=== PATIENT | male | born 1945 | race Caucasian/White ===

== ENCOUNTER 2019-03-17 18:05 | Inpatient (IN) ==
[2019-03-17 19:50] LABS: Basophils % 0.7 %; Eosinophils # 0.1 K/mcL (0.0-0.6); Eosinophils % 2.1 %; Hematocrit 35.6 % (37.5-50.1); Immature Granulocytes % 1.3 % (0-4); Lymphocytes # 1.1 K/mcL (0.6-4.6); Lymphocytes % 18.5 %; Mean Corpuscular HGB Conc 33.7 g/dL (31.6-35.5); Mean Corpuscular Hemoglobin 33.5 pg (28.0-33.3); Mean Corpuscular Volume 99.4 fL (83.0-100.0); Mean Platelet Volume 9.2 fL (9.4-12.4); Monocytes # 0.5 K/mcL (0.0-1.3); Neutrophils # 4.2 K/mcL (1.6-8.9); Platelet Count 113 K/mcL (140-400); Red Blood Count 3.58 M/mcL (4.19-5.50); Red Cell Distribution Width 15.3 % (11.5-14.5); Segmented Neutrophils % 69.4 %
[2019-03-17 20:05] LABS: BUN/Creatinine Ratio 27 (6-26); Blood Urea Nitrogen 36 mg/dL (8-23); Carbon Dioxide 27 mEq/L (23-29); Chloride 100 mEq/L (98-107); Glucose 190 mg/dL (70-105); Osmolality,Calculated 301 (280-300); Potassium 4.6 mEq/L (3.5-5.1); Sodium 139 mEq/L (136-145); eGFR For Non-African Americans 54 (> 60)
[2019-03-17] MEDS ORDERED: *HR* FentaNYL (PF) 100 MCG/2 ML VIAL IVP ONE (20:07)
[2019-03-17 20:11] LABS: INR 1.3; Prothrombin Time 14.6 Seconds (9.4-12.1)
[2019-03-17 20:14] LABS: Activated Partial Thrombo Time 39.9 Seconds (26.0-36.0)
[2019-03-17] MEDS ORDERED: 0.9 % Sodium Chloride 1,000 ML IVC ONE (20:19)
--- NOTE | 2019-03-17 20:22 | Emergency Department Note ---
Disposition Clinical Impression: Peripheral vascular disease Disposition: Admitted As Inpatient Condition: Fair [facility] Care Provider[facility] - Time of Disposition: 20:00 Extremity Problem HPI - General Chief complaint: ED Extremity Problem,Nontraumatic Stated complaint: no pulse in left foot Time Seen by Provider: 03/17/19 18:21 Source: patient, EMS Limitations: no limitations Nursing Notes Reviewed: Yes Vital Signs Reviewed: Yes - History of Present Illness HPI Narrative: Patient presents emergency Department with chief complaint of not knowing actually why he is here. He states he was at his doctor's office at the [facility] and then they sent him over here because "his foot was not acting right" he states that he thinks that he was told that he had bad blood flow to his feet. Patient states that he is not having any acute pain numbness weakness. He does have a h istory of neuropathy, secondary to peripheral vascular disease and diabetes. The patient states that from his standpoint nothing is new. He denies any headache neck pain chest pain shortness of breath fever chills cough or sputum production. He does see a field technical specialist as well and recently had his feet wrapped. Reviewing his records from triage, it states that he was at the [facility], they contact ed vascular surgery because of the patient's left foot was reportedly pulseless and cold, and vascular surgery said to send him to this hospital to be admitted by the hospitalist so that he could perform angiogram tomorrow. Patient denies any other acute concerns at this time. Pain Scale: 0 - Related Data Allergies Allergy/AdvReac Type Severity Reaction Status Date / Time No Known Allergies Allergy Verified 03/17/19 18:17 All systems ED: reviewed and negative except as stated. Review of Systems: As Per HPI Past Medical History - Past Medical History Medical history: Reports: CHF, diabetes Psychiatric history: Reports: no psych history - Social History Smoking Status: Former smoker Smokeless Tobacco Status: No Alcohol use: Reports: none Drug use: Reports: none Physical Exam - General Limitations: no limitations General appearance: alert, in no apparent distress - Head Head exam: atraumatic, normocephalic - Eye Eye exam: Present: normal appearance, PERRL - ENT ENT exam: normal exam, normal oropharynx - Neck Neck exam: Present: normal inspection, full ROM - Chest Chest inspection: Present: normal inspection, symmetric chest wall rise - Respiratory Respiratory exam: Present: normal lung sounds bilaterally - Cardiovascular Cardiovascular exam: Present: regular rate, normal rhythm, systolic murmur (2/6 systolic murmur no rubs or gallops) - Abdominal Exam Abdominal exam: Present: soft, Non-Tender, other (Morbidly obese, no obvious palpable or pulsatile mass) - Extremities Exam Extremities exam: Present: other (Bilateral lower extremities, reveals some chronic likely skin thickening and shiny appearance to the toes, with a slight pinkish hue to them, both feet are normally warm to the touch they are not hot, they are not cold, he has palpable bilateral pedal and dorsalis pedis pulses. He does have chronic what appears to be peripheral vascular disease changes, he has a area of dry gangrene on the left medial dorsal portion of the foot measuring approximately the size of a quarter, and one on the right foot on the dorsal aspect measuring the size of a dime but there is no skin breakdown, there is no surrounding erythema or warmth or purulence. He is able to wiggle his feet bilaterally sensation is completely intact. He has palpable bilateral popliteal pulses as well. This was confirmed by myself by the resident physician by 3 nursing staff, and by bedside Doppler. There is no evidence of unilateral swelling calf tenderness or Homans sign, there is trace lower extremity edema ) - Expanded Lower Extremity Exam Neurovascular/Tendon exam: Present: normal capillary refill. Absent: pulse deficit, motor deficit, sensory deficit Gait: observed and normal, other (Without asking permission the patient did get up and walk himself to the bathroom, eyewitnesses gait is slow but it is normal, immediately upon arrival back at the bedside I rechecked his pulses in his lower extremities and the are still palpable and he has no new pain.) - Back Exam Back exam: Present: normal inspection - Neurological Exam Neurological exam: Present: alert, oriented X3, CN II-XII intact, reflexes normal. Absent: motor sensory deficit - Psychiatric Psychiatric exam: Present: normal affect, normal mood - Skin Skin exam: Present: warm, dry. Absent: cyanosis, diaphoresis, pallor, mottled Course Vital Signs Temperature 98.9 F 03/17/19 18:12 Pulse Rate 81 03/17/19 18:12 Respiratory Rate 18 03/17/19 18:12 Blood Pressure 139/85 03/17/19 18:12 O2 Sat by Pulse Oximetry 96 03/17/19 18:12 Temperature 98.9 F 03/17/19 18:12 Pulse Rate 80 03/17/19 19:03 Respiratory Rate 20 03/17/19 19:03 Blood Pressure 127/52 03/17/19 19:03 O2 Sat by Pulse Oximetry 100 03/17/19 19:03 Oxygen Delivery Oxygen Delivery Room Air Extremity Problem, Nontraumati - [facility] Narrative Medical decision making narrative: Patient had an IV placed, he has issues with chronic pain related to neuropathy for which she requested pain medication for which she was given IV fentanyl. Basic laboratory studies were ordered. I reached out to Dr. Mott, who reportedly accepted this patient to this hospital, to be seen in the ER and admitted to the hospitalist, I was finally able to get a hold of him, I explained that this patient clearly has palpable pulses, he has no evidence of pallor he can feel everything he can move everything and has no increased pain from his baseline, with no obvious evidence of acute infection, he states that this is completely different than the examination he is reported by the senior water/wastewater engineer at the NH, he reports that the patient is on apixaban, and would not initiate any further anticoagulation, does not feel that based upon the description of his symptoms at this time that he should receive IV antibiotics. He did ask that I order ABIs for him so that these are available for him for tomorrow and that the hospitalist admit this patient. I contacted the hospitalist, who was agreeable to admit this patient. Basic laboratory studies were unremarkable for significant acute abnormality, and patient was admitted for further evaluation and management. - Lab Data Lab results reviewed: Yes I reviewed the patient's lab results. Result diagrams: 03/17/19 19:24 03/17/19 19:24 Lab Results 03/17/19 03/17/19 03/17/19 Range/Units 19:24 19:24 19:24 WBC 6.1 (4.3-11.1) K/mcL RBC 3.58 L (4.19-5.50) M/mcL Hgb 12.0 L (12.9-16.9) g/dL Hct 35.6 L (37.5-50.1) % MCV 99.4 (83.0-100.0) fL MCH 33.5 H (28.0-33.3) pg MCHC 33.7 (31.6-35.5) g/dL RDW 15.3 H (11.5-14.5) % Plt Count 113 L (140-400) K/mcL MPV 9.2 L (9.4-12.4) fL Immature Gran % 1.3 (0-4) % Seg Neutrophils % 69.4 % Lymphocytes % 18.5 % Monocytes % 8.0 % Eosinophils % 2.1 % Basophils % 0.7 % Neutrophils # 4.2 (1.6-8.9) K/mcL Lymphocytes # 1.1 (0.6-4.6) K/mcL Monocytes # 0.5 (0.0-1.3) K/mcL Eosinophils # 0.1 (0.0-0.6) K/mcL Basophils # 0.0 (0.0-0.2) K/mcL PT 14.6 H (9.4-12.1) Seconds INR 1.3 APTT 39.9 H (26.0-36.0) Seconds Sodium 139 (136-145) mEq/L Potassium 4.6 (3.5-5.1) mEq/L Chloride 100 (98-107) mEq/L Carbon Dioxide 27 (23-29) mEq/L BUN 36 H (8-23) mg/dL Creatinine 1.31 H (0.70-1.30) mg/dL Est GFR ( Amer) > 60 (> 60) Est GFR (Non-Af Amer) 54 L (> 60) BUN/Creatinine Ratio 27 H (6-26) Glucose 190 H (70-105) mg/dL Calculated Osmolality 301 H (280-300) Calcium 9.0 (8.6-10.3) mg/dL
[2019-03-17] MEDS ORDERED: Naloxone 0.4 MG/ML INJ IVP PRN (21:11)
--- NOTE | 2019-03-17 21:16 | Internal Med History&Physical ---
Date of Encounter: 03/17/19 Time of Encounter: 21:16 Internal Medicine - H&P: HPI Chief complaint: Absent lower extremity pulses History of present illness: Mr. Canales is a 74 year old male with a past medical history of peripheral vascular disease, hypertension, CHF and diabetes [facility] due to concern absent pulses in the left lower extremity. Patient denies having any acute pain numbness weakness. He does have a history of neuropathy, secondary to peripheral vascular disease and diabetes and frequent falls. She is currently on Eliquis. Per records, [place] contacted vascular surgery because of concern vascular insufficiency involving the left lower due to reported findings of the limb being cold and pulseless. Dr. Mott with vascular surgery reportedly accepted this patient to this hospital, to be seen in the ER and admitted to the hospitalist. During ED assessment patient was found to have a palpable pulse in the left lower extremity which was discussed with Dr. Mott. He requested that ABIs be obtained and will evaluate the patient tomorrow. Patient currently asymptomatic. Denies any fever, chills, shortness of breath, cough, chest pain, abdominal pain, diarrhea. Past Med Surg Social Fam HX - Past Medical History Medical history: CHF, diabetes Psychiatric history: no psych history - Social History Smoking Status: Former smoker Smokeless Tobacco Status: No Alcohol use: none Drug use: none Internal Medicine - H&P: Meds Apixaban [Eliquis] 5 mg PO BID 03/17/19 [History] Aspirin [Adult Aspirin] 81 mg PO DAILY 03/17/19 [History] Atorvastatin [Lipitor] 40 mg PO 1700 03/17/19 [History] BuPROPion SR (12 HR) [Wellbutrin SR] 150 mg PO DAILY 03/17/19 [History] Carvedilol [Coreg] 6.25 mg PO BIDWM 03/17/19 [History] Cholecalciferol (D-3) [Vitamin D] 5,000 unit PO DAILY 03/17/19 [History] Collagenase Oint [Santyl] 1 appl TP DAILY 03/17/19 [History] Divalproex (24 HR) [Depakote ER (24 HR)] 500 mg PO HS 03/17/19 [History] Empagliflozin [Jardiance] 25 mg PO DAILY 03/17/19 [History] Furosemide [Lasix] 20 mg PO DAILY 03/17/19 [History] Gabapentin [Neurontin] 1,200 mg PO BID 03/17/19 [History] Insulin ASPART [Novolog Flexpen] 2 - 10 unit SQ TIDWM 03/17/19 [History] Insulin Glargine [Lantus] 14 unit SQ Q12H 03/17/19 [History] Lisinopril [Zestril] 20 mg PO DAILY 03/17/19 [History] Meclizine HCl [Verticalm] 25 mg PO TID PRN 03/17/19 [History] Melatonin [Melatin] 6 mg PO HS 03/17/19 [History] Metformin HCl [Glucophage] 1,000 mg PO BID 03/17/19 [History] Sertraline [Zoloft] 150 mg PO DAILY 03/17/19 [History] amLODIPine [Norvasc] 5 mg PO DAILY 03/17/19 [History] Allergy/AdvReac Type Severity Reaction Status Date / Time No Known Allergies Allergy Verified 03/17/19 18:17 All Systems PM: A 10-system review of systems was performed and is negative for pertinent findings except as documented above in the HPI. - Constitutional Constitutional: no chills, no fever(s), no night sweats - EENT Eyes: no change in vision, no discharge, no pain, no photophobia Ears: no ear discharge, no ear pain, no tinnitus Nose, mouth and throat: no dysphagia, no nasal discharge, no neck pain, no sore throat - Cardiovascular Cardiovascular ROS IM: no chest pain, no diaphoresis, no dyspnea, no lightheadedness, no palpitations, no syncope - Respiratory Respiratory: no cough, no dyspnea, no wheezing, no excessive phlegm production - Gastrointestinal Gastrointestinal: no abdominal pain, no diarrhea, no hematemesis, no hematochezia, no melena, no nausea, no vomiting - Musculoskeletal Musculoskeletal ROS IM: no numbness, no tingling - Integumentary Integumentary IM: no rash, no unusual bruising - Neurological Neurological ROS: no confusion, no convulsions, no focal weakness, no numbness, no tingling, no tremor(s) - Hematologic/Lymphatic Hematologic/Lymphatic: no easy bruising - Constitutional Vitals: Temp Pulse Resp BP Pulse Ox 98.9 F 82 18 156/63 98 05/09/19 18:12 03/17/19 20:19 03/17/19 20:19 03/17/19 20:19 03/17/19 20:19 Exam: General: Alert and oriented 3 lying in bed in no acute distress Skin: Quarter-sized black eschar on the medial aspect of the left foot at the level of the first metatarsal joint HEENT:EOM, pupils equal, round and reactive. Cardiovascular:Normal S1 & S2, no rubs, murmurs or gallops. No JVD. Pulse regular. Lungs:Normal breath sounds, no wheezes or crackles. Abdomen: Left lower extremity warm to palpation with palpable DP pulse. Right lower extremity cooler in comparison. Unable to palpate DP or PT pulses. Obtained via Doppler. Extremities: Bilateral lower extremities Neurological:Normal cognition and motor skills. Pulses:Carotid and radial pulses normal +2. Rest of the physical exam is non contributory Internal Med - H&P Results - Labs CBC & Chem 7: 03/18/19 04:58 03/18/19 04:58 Labs: Short CBC 03/17/19 Range/Units 19:24 WBC 6.1 (4.3-11.1) K/mcL Hgb 12.0 L (12.9-16.9) g/dL Hct 35.6 L (37.5-50.1) % Plt Count 113 L (140-400) K/mcL Neutrophils # 4.2 (1.6-8.9) K/mcL BMP 03/17/19 19:24 Sodium 139 Potassium 4.6 Chloride 100 Carbon Dioxide 27 BUN 36 H Creatinine 1.31 H Glucose 190 H Calcium 9.0 - Assessment and Plan (1) Peripheral vascular disease Current Visit: Yes Status: Chronic Assessment and plan: Patient is a history of PVD [facility] of absent pulses in the left lower extremity. I was able to palpate the DP pulse on the left lower extremity. Right lower extremity in comparison is cooler to touch and I am unable to palpate the PT or DP pulse. Pulse obtained via Doppler. Patient at this time denies any pain area does report paresthesias but states that this has been ongoing in the setting of his diabetic neuropathy and is unchanged. Labs otherwise unremarkable. No evidence of an infectious process. Patient currently on Eliquis -Further vascular studies with OLEKSANDR and possible CT angiogram to lower extremities. -Vascular consult (2) Diabetes Current Visit: Yes Status: Chronic Assessment and plan: Sliding scale insulin. Blood glucose checks. Qualifiers: Diabetes mellitus type: type 2 Diabetes mellitus buttermaker helper insulin use: unspecified shelter insulin use status Diabetes mellitus complication status: with unspecified complications Qualified Code(s): E11.8 - Type 2 diabetes mellitus with unspecified complications (3) Congestive heart failure Current Visit: Yes Status: Chronic Assessment and plan: History of congestive heart failure. Patient received 1 L fluid bolus in the ED. Monitor I's and O's. Daily weights. Resume medical management with home medications. Qualifiers: Heart failure type: unspecified Heart failure chronicity: chronic Qualified Code(s): I50.9 - Heart failure, unspecified (4) Hypertension Current Visit: Yes Status: Acute Qualifiers: Hypertension type: unspecified Qualified Code(s): I10 - Essential (primary) hypertension (5) DVT prophylaxis Current Visit: Yes Status: Acute Assessment and plan: Patient currently on Eliquis - Time Spent With Patient Total time spent is greater than 50% in coordination of care (as documented) at patient's floor/unit and/or counseling patient:
[2019-03-17] MEDS ORDERED: Isovue-370 500 ML BOTTLE IVP ONE ×2 (22:40→22:46)
[2019-03-18] MEDS ORDERED: *HR* LORazepam 2 MG/ML VIAL IVP PRN ×3 (04:37)
[2019-03-18] MEDS ORDERED: D5% in Water 1,000 ML IVC PRN (04:41)
[2019-03-18] MEDS ORDERED: *HR* Dextrose 50 % in Water (Syg) 50 ML SYRINGE IVP PRN (04:41)
[2019-03-18] MEDS ORDERED: Dextrose Gel 15 GM/37.5 ML TUBE PO PRN ×2 (04:41)
--- NOTE | 2019-03-18 04:52 | Event Note ---
Date of Encounter: 03/18/19 Time of Encounter: 04:45 Informed by nurse that patient had removed his telemetry leads twice, took his IV out and bandage off his arm. Patient stated that he thought he was done with his care. Patient appeared to be confused. Foul-smelling urine noted cloudy in appearance. Nurse inquired about any alcohol history. Patient states he drinks nearly daily and asked the nurse if he could have a beer. When I arrived patient he was lying in bed in no acute distress. Alert oriented 2. Did not know the year. Denied any discomfort. Stated that he drank once a month. He did endorse dysuria. Vitals stable. Physical exam unchanged. We will send urine for culture. We will start patient on CIWA protocol. We will obtain ammonia level.
[2019-03-18 04:59] LABS: Bilirubin,Urine Negative (Negative); Blood,Urine Trace (Negative); Clarity,Urine Cloudy (Clear); Color,Urine Yellow (Yellow); Glucose,Urine (UA) >=1000 mg/dL (Normal); Ketones,Urine Negative (Negative); Leukocyte Esterase,Urine Moderate (Negative); Nitrite,Urine Negative (Negative); Protein,Urine 100 mg/dL (Neg-Trace); Specific Gravity,Urine 1.018 (1.010-1.025); Urobilinogen,Urine Normal (Normal)
[2019-03-18 05:00] LABS: Bacteria,Urine Few per hpf (None-Few); Hyaline Casts,Urine None Seen per lpf (None-Few); Squamous Epithelial Cell,Urine None Seen per lpf (None-Few); WBC,Urine TNTC per hpf (0-3)
[2019-03-18 05:11] LABS: Immature Granulocytes % 1.4 % (0-4)
[2019-03-18 05:13] LABS: Basophils % 0.8 %; Eosinophils # 0.1 K/mcL (0.0-0.6); Eosinophils % 2.2 %; Hemoglobin 11.8 g/dL (12.9-16.9); Immature Platelets 0.8 % (1.1-6.1); Lymphocytes % 19.9 %; Mean Corpuscular HGB Conc 33.7 g/dL (31.6-35.5); Mean Corpuscular Hemoglobin 33.4 pg (28.0-33.3); Mean Corpuscular Volume 99.2 fL (83.0-100.0); Mean Platelet Volume 8.7 fL (9.4-12.4); Monocytes # 0.5 K/mcL (0.0-1.3); Neutrophils # 3.3 K/mcL (1.6-8.9); Platelet Count 109 K/mcL (140-400); Red Blood Count 3.53 M/mcL (4.19-5.50); Red Cell Distribution Width 15.2 % (11.5-14.5); Segmented Neutrophils % 66.7 %
[2019-03-18 05:22] LABS: INR 1.2; Prothrombin Time 13.9 Seconds (9.4-12.1)
[2019-03-18 05:24] LABS: Activated Partial Thrombo Time 40.5 Seconds (26.0-36.0)
[2019-03-18 05:30] LABS: Alanine Aminotransferase 8 Units/L (7-52); Albumin 3.6 g/dL (3.5-5.7); Albumin/Globulin Ratio 1.3 (1.1-2.2); Alkaline Phosphatase 71 Units/L (34-104); Aspartate Amino Transferase 12 Units/L (13-39); BUN/Creatinine Ratio 31 (6-26); Bilirubin,Total 0.4 mg/dL (0.3-1.0); Blood Urea Nitrogen 30 mg/dL (8-23); Calcium 8.9 mg/dL (8.6-10.3); Carbon Dioxide 28 mEq/L (23-29); Chloride 104 mEq/L (98-107); Globulin 2.7 g/dL (2.4-3.5); Glucose 106 mg/dL (70-105); Osmolality,Calculated 293 (280-300); Potassium 3.9 mEq/L (3.5-5.1); Sodium 138 mEq/L (136-145); Total Protein 6.3 g/dL (6.4-8.9); eGFR For Non-African Americans > 60 (> 60)
[2019-03-18] MEDS: Insulin LISPRO 300 UNITS/3 ML VIAL SQ SCH ×3 (06:03→17:54)
[2019-03-18] MEDS ORDERED: Insulin LISPRO 300 UNITS/3 ML VIAL SQ SCH (07:30)
--- NOTE | 2019-03-18 08:20 | Vascular/Endovasc Consult Note ---
Date of Encounter: 03/18/19 Time of Encounter: 08:18 Assessment and Plan (1) Peripheral vascular disease Current Visit: Yes Status: Chronic Patient appears to have chronic lower extremity vascular disease most likely due to his diabetes. The disease were reversed greater on the right side than on the left. I was informed that the left lower extremity was more ischemic but on my physical exam as noted by other physicians there are palpable pulses at the ankle. In addition the ankle-brachial index is normal to supernormal on the left and diminished on the right. There were obvious pulse deficits on the right lower extremity suggesting superficial femoral artery occlusion. Therefore I recommend that we proceed with angiography with the plan of endovascular intervention for the right lower extremity. The patient will need further wound care as an outpatient either through podiatry or wound care clinic for the foot and toe lesions. Patient will need his metformin held for 48 hours. (2) Diabetes Current Visit: Yes Status: Chronic Patient has chronic diabetes with diabetic neuropathy and it appears diabetic ulcerations of the feet and toes. Patient will need further follow-up with wound care and/or podiatry for his foot lesions. Qualifiers: Diabetes mellitus type: type 2 Diabetes mellitus nursing home insulin use: unspecified nursing home insulin use status Diabetes mellitus complication status: with unspecified complications Qualified Code(s): E11.8 - Type 2 diabetes mellitus with unspecified complications (3) Congestive heart failure Current Visit: Yes Status: Chronic By history the patient has congestive heart failure. There is also a telephone conversation with the outside physician who stated that the patient had paroxysmal atrial fibrillation and was on apixiban for that reason. Qualifiers: Heart failure type: unspecified Heart failure chronicity: chronic Qualified Code(s): I50.9 - Heart failure, unspecified - History of Present Illness Consult date: 03/18/19 Consult reason: Toe ulcerations Chief complaint: Toe ulcerations History of present illness: Mr. Canales is a 74 year old male Lives in [place] that was at the [facility] yesterday because of complaints of ulcera tions on his feet. The patient has a long history of diabetes. He also has known diabetic neuropathy with numbness of the feet and toes. It is unclear what the patient's ambulatory intolerances as he does not do a great deal of walking. Vascular surgery was consulted because there was concern raised about severe ischemia to the left lower extremity. He was reported to me that the patient had no pulses and that the left foot was cold. They had no recent noninvasive testings and so they requested that the patient be transferred for further evaluation. On my interview with the patient this morning his primary complaints are those of the ulcerations of the feet and toes. He also complains of chronic numbness. The patient does have diabetic shoes which he states that he wears a regular basis. He has not had any recent vascular testing. The last testing he had was in 2016. Noninvasive testing was performed last night in the emergency room. This revealed an ankle-brachial index of 0.73 on the right and 1.46 on the left. The waveforms were abnormal in the right lower extremity. Waveforms were nearly normal in the left lower extremity. Past Med Surg Social Fam HX - Past Medical History Medical history: CHF, COPD, diabetes Psychiatric history: no psych history - Social History Smoking Status: Former smoker Smokeless Tobacco Status: No Alcohol use: occasionally Drug use: none Medications and Allergies Apixaban [Eliquis] 5 mg PO BID 03/17/19 [History] Aspirin [Adult Aspirin] 81 mg PO DAILY 03/17/19 [History] Atorvastatin [Lipitor] 40 mg PO 1700 03/17/19 [History] BuPROPion SR (12 HR) [Wellbutrin SR] 150 mg PO DAILY 03/17/19 [History] Carvedilol [Coreg] 6.25 mg PO BIDWM 03/17/19 [History] Cholecalciferol (D-3) [Vitamin D] 5,000 unit PO DAILY 03/17/19 [History] Collagenase Oint [Santyl] 1 appl TP DAILY 03/17/19 [History] Divalproex (24 HR) [Depakote ER (24 HR)] 500 mg PO HS 03/17/19 [History] Empagliflozin [Jardiance] 25 mg PO DAILY 03/17/19 [History] Furosemide [Lasix] 20 mg PO DAILY 03/17/19 [History] Gabapentin [Neurontin] 1,200 mg PO BID 03/17/19 [History] Insulin ASPART [Novolog Flexpen] 2 - 10 unit SQ TIDWM 03/17/19 [History] Insulin Glargine [Lantus] 14 unit SQ Q12H 03/17/19 [History] Lisinopril [Zestril] 20 mg PO DAILY 03/17/19 [History] Meclizine HCl [Verticalm] 25 mg PO TID PRN 03/17/19 [History] Melatonin [Melatin] 6 mg PO HS 03/17/19 [History] Metformin HCl [Glucophage] 1,000 mg PO BID 03/17/19 [History] Sertraline [Zoloft] 150 mg PO DAILY 03/17/19 [History] amLODIPine [Norvasc] 5 mg PO DAILY 03/17/19 [History] Allergy/AdvReac Type Severity Reaction Status Date / Time No Known Allergies Allergy Verified 03/17/19 18:17 All Systems Review: The remainder of the systems were reviewed and are negative Exam Vital Signs, Last 4 Hours Temp Pulse Resp BP Pulse Ox 03/18/19 07:02 97.7 F 84 20 145/69 95 General: Present: Conversant, No Apparent Distress HEENT: Present: Atraumatic, Normocephaly, Trachea midline Neck: Present: Left Carotid bruit, Right Carotid bruit. Absent: JVD, Midline deformity, Tracheal deviation Cardiac: Present: Reg Rate and Rhythm, Other (Patient has a 3/6 systolic murmur heard across the precordium but is loudest over the aortic position. This murmur does radiate into the neck bilaterally.) Lungs: Present: Normal Breath Sounds, No Wheeze, Rales, Rhonchi Neuro: Present: Alert and responsive, No focal deficits noted, Cranial nerves grossly intact Abdomen: Present: Soft, Non-tender, Other (Obese). Absent: Masses Vascular: Present: Pulse, absent (The patient does not have palpable popliteal or pedal pulses on the right lower extremity), Pulse, normal (Patient has palpable femoral, popliteal, and pedal pulses on the left.) Skin: Present: Wound/ulcer(s) (Patient has ulcerations of punctate black circular dimensions on the dorsal aspect of the toes on the right side. He has a quarter size necrotic area on the area of the left medial first metatarsal head. There is no streaking. There are no blebs. There is no redness. Patient has decreased turgor of the skin with mild but nonpitting edema bilaterally.) Consult Discharge Plan - Plan [facility]errals: [facility] [Primary Care Provider] -
--- NOTE | 2019-03-18 08:30 | Internal Med Progress Note ---
<Grabiel Quinonez - Last Filed: 03/18/19 08:27> Hospitalist Progress Note - Encounter Date of Encounter: 03/18/19 Time of Encounter: 08:27 - Exam Vitals: Temp Pulse Resp BP Pulse Ox 97.7 F 84 20 145/69 95 03/18/19 07:02 03/18/19 07:02 03/18/19 07:02 03/18/19 07:02 03/18/19 07:02 - Assessment and Plan (1) Peripheral vascular disease Current Visit: Yes Status: Chronic Assessment and Plan: - [facility] presented [facility] for concerns of absent pulses in the LLE - Patient is a known history of peripheral vascular disease - On presentation, patients pulse was palpable the left lower extremity - OLEKSANDR performed in ED: 0.73 on the right, 1.46 on the left; abnormal waveforms in the right lower extremity - Patient takes aspirin and statin Plan: - Patient is NPO except PO medications - CTA of the aorta is ordered and is currently pending - Wound care and vascular surgery have both been consulted (2) Alcohol use Current Visit: Yes Status: Acute Assessment and Plan: - Per that note on 03/18: Patient appeared confused and was removing telemetry leads and his IVs - When asked, patient admits to drinking daily, and asked the nurse if he could have a beer - He was assessed, he appeared to be confused and was alert and oriented 2 - CIWA protocol was started (3) UTI (urinary tract infection) Current Visit: Yes Status: Acute Assessment and Plan: - Urinalysis demonstrated moderately elevated leukocyte esterase and TNTC white blood cells - Per that note on 03/18: Patient had foul-smelling urine noted with a cloudy appearance - Urine culture has been ordered and is currently pending - Empiric Rocephin (4) Congestive heart failure Current Visit: Yes Status: Chronic Assessment and Plan: - Patient has a known history of congestive heart failure - No echocardiogram is on file - Monitor intake and output - Daily weights - Continue home medications (5) Diabetes Current Visit: Yes Status: Chronic Assessment and Plan: - Sliding scale insulin - Blood glucose checks (6) Hypertension Current Visit: Yes Status: Acute Assessment and Plan: - Currently well-controlled on amlodipine, carvedilol, lisinopril (7) DVT prophylaxis Current Visit: Yes Status: Acute Assessment and Plan: - Eliquis - Time Spent with Patient Total time spent is greater than 50% in coordination of care (as documented) at patient's floor/unit and/or counseling patient: Internal Medicine: Result - Labs CBC & Chem 7: 03/18/19 04:58 03/18/19 04:58 Labs: Short CBC 03/17/19 03/18/19 Range/Units 19:24 04:58 WBC 6.1 5.0 (4.3-11.1) K/mcL Hgb 12.0 L 11.8 L (12.9-16.9) g/dL Hct 35.6 L 35.0 L (37.5-50.1) % Plt Count 113 L 109 L (140-400) K/mcL Neutrophils # 4.2 3.3 (1.6-8.9) K/mcL BMP 03/17/19 03/18/19 19:24 04:58 Sodium 139 138 Potassium 4.6 3.9 Chloride 100 104 Carbon Dioxide 27 28 BUN 36 H 30 H Creatinine 1.31 H 0.98 Glucose 190 H 106 H Calcium 9.0 8.9 Liver Function 03/18/19 Range/Units 04:58 Total Bilirubin 0.4 (0.3-1.0) mg/dL AST 12 L (13-39) Units/L ALT 8 (7-52) Units/L Alkaline Phosphatase 71 (34-104) Units/L Albumin 3.6 (3.5-5.7) g/dL Urine 03/18/19 Range/Units 03:00 Urine Color Yellow (Yellow) Urine Clarity Cloudy A (Clear) Urine pH 6.0 (5.0-8.0) pH Units Ur Specific [place] 1.018 (1.010-1.025) Urine Protein 100 H (Neg-Trace) mg/dL Urine Glucose (UA) >=1000 H (Normal) mg/dL - ABG Interpretation ABG results: PT/INR, D-dimer PT 13.9 Seconds (9.4-12.1) H 03/18/19 04:58 Consult Discharge Plan - Plan Referrals: [facility] [Primary Care Provider] - <Suresh Mo - Last Filed: 03/18/19 18:00> Hospitalist Progress Note - Encounter Date of Encounter: 03/18/19 - Exam Vitals: Temp Pulse Resp BP Pulse Ox 97.7 F 84 20 145/69 95 03/18/19 07:02 03/18/19 07:02 03/18/19 07:02 03/18/19 07:02 03/18/19 07:02 Exam: General: conversant, no acute distress Head: atraumatic, normocephalic Eye: PERRL, EOMI, conjuntiva pink, sclera anicteric Neck: Supple, trachea midline; No lymphadenopathy Respiratory: CTAB. No accessory muscle use, wheezes, rales, or rhonchi Cardiovascular: RRR, +S1, +S2; no murmurs, rubs, gallops Abdomen: Soft, nontender Extremities: Weak pulses in b/l Les, L>R; black discolorations on both feet; may represent dry gangrene Psychiatric: Normal affect, normal mood Skin: Dry, intact - Assessment and Plan (1) Peripheral vascular disease Current Visit: Yes Status: Chronic (2) Diabetes Current Visit: Yes Status: Chronic (3) Congestive heart failure Current Visit: Yes Status: Chronic (4) DVT prophylaxis Current Visit: Yes Status: Acute (5) Hypertension Current Visit: Yes Status: Acute - Time Spent with Patient Total time spent is greater than 50% in coordination of care (as documented) at patient's floor/unit and/or counseling patient: Internal Medicine: Result - Labs CBC & Chem 7: 03/18/19 04:58 03/18/19 04:58 Labs: Short CBC 03/17/19 03/18/19 Range/Units 19:24 04:58 WBC 6.1 5.0 (4.3-11.1) K/mcL Hgb 12.0 L 11.8 L (12.9-16.9) g/dL Hct 35.6 L 35.0 L (37.5-50.1) % Plt Count 113 L 109 L (140-400) K/mcL Neutrophils # 4.2 3.3 (1.6-8.9) K/mcL BMP 03/17/19 03/18/19 19:24 04:58 Sodium 139 138 Potassium 4.6 3.9 Chloride 100 104 Carbon Dioxide 27 28 BUN 36 H 30 H Creatinine 1.31 H 0.98 Glucose 190 H 106 H Calcium 9.0 8.9 Liver Function 03/18/19 Range/Units 04:58 Total Bilirubin 0.4 (0.3-1.0) mg/dL AST 12 L (13-39) Units/L ALT 8 (7-52) Units/L Alkaline Phosphatase 71 (34-104) Units/L Albumin 3.6 (3.5-5.7) g/dL Urine 03/18/19 Range/Units 03:00 Urine Color Yellow (Yellow) Urine Clarity Cloudy A (Clear) Urine pH 6.0 (5.0-8.0) pH Units Ur Specific [place] 1.018 (1.010-1.025) Urine Protein 100 H (Neg-Trace) mg/dL Urine Glucose (UA) >=1000 H (Normal) mg/dL - ABG Interpretation ABG results: PT/INR, D-dimer PT 13.9 Seconds (9.4-12.1) H 03/18/19 04:58 - Attending Attestation I examined this patient and my medical decision-making was reviewed with the Resident Physician. I agree with the documented findings, disposition and treatment plan as described except to the extent set forth below. <Grabiel Quinonez - Last Filed: 03/18/19 08:27> (4) Congestive heart failure Qualifiers: Heart failure type: unspecified Heart failure chronicity: chronic Qualified Code(s): I50.9 - Heart failure, unspecified (5) Diabetes Qualifiers: Diabetes mellitus type: type 2 Diabetes mellitus boiling house oiler insulin use: unspecified boiling house oiler insulin use status Diabetes mellitus complication status: with unspecified complications Qualified Code(s): E11.8 - Type 2 diabetes mellitus with unspecified complications <Suresh Mo - Last Filed: 03/18/19 18:00> (2) Diabetes Qualifiers: Diabetes mellitus type: type 2 Diabetes mellitus fpc insulin use: unspecified boiling house oiler insulin use status Diabetes mellitus complication status: with unspecified complications Qualified Code(s): E11.8 - Type 2 diabetes mellitus with unspecified complications (3) Congestive heart failure Qualifiers: Heart failure type: unspecified Heart failure chronicity: chronic Qualified Code(s): I50.9 - Heart failure, unspecified
[2019-03-18] MEDS: Aspirin Enteric Coated 81 MG Tablet PO SCH (09:00)
[2019-03-18] MEDS: BuPROPion SR (12 HR) 150 MG TABLET PO SCH (09:00)
[2019-03-18] MEDS: Lisinopril 20 MG TABLET PO SCH (09:00)
[2019-03-18] MEDS: Thiamine (B-1) 100 MG TABLET PO SCH (09:00)
[2019-03-18] MEDS: amLODIPine 5 MG TABLET PO SCH (09:00)
[2019-03-18] MEDS: Cholecalciferol (D-3) 1,000 UNIT TABLET PO SCH (09:00)
[2019-03-18] MEDS: Gabapentin 400 MG CAPSULE PO SCH ×2 (09:01→20:54)
[2019-03-18] MEDS ORDERED: Heparin 1,000 UNITS/500 mL 500 ML ONE (09:38)
[2019-03-18] MEDS ORDERED: *HR* Heparin 10,000 UNIT/10 ML VIAL ONE (09:38)
[2019-03-18] MEDS ORDERED: Isovue-300 200 mL Infus..BTL ONE (09:38)
[2019-03-18] MEDS ORDERED: 0.9 % Sodium Chloride 1,000 ML ONE (09:38)
[2019-03-18] MEDS ORDERED: *HR* FentaNYL (PF) 100 MCG/2 ML VIAL ONE (09:48)
[2019-03-18] MEDS ORDERED: *HR* Midazolam HCl 2 MG/2 ML VIAL ONE ×2 (09:48→10:58)
[2019-03-18] MEDS: Folic Acid 1 MG TABLET PO SCH (11:31)
--- NOTE | 2019-03-18 11:45 | Pre-Sedation Evaluation ---
Pre-sedation evaluation - Pre-sedation checklist Date of procedure: 03/18/19 Procedure: angiogram Recent Vitals: Last Vital Signs Temp 97.7 F 03/18/19 07:02 Pulse 84 03/18/19 07:02 Resp 20 03/18/19 07:02 BP 145/69 03/18/19 07:02 Pulse Ox 95 03/18/19 07:02 H&P (including ROS) documented in medical record: Yes Previous reaction to sedatives/anesthetics: No Dietary Status: NPO after Midnight Dentition: No loose teeth or bridges ASA Classification *see protocol: CLASS III-Severe systemic disease Plan of Care: Pt appropriate candidate for procedure/moderate/conscious sedation, Risks/benefits of procedure/sedation discussed w/ patient/family
--- NOTE | 2019-03-18 11:51 | Procedure Note ---
Date of procedure: 03/18/19 Pre-op diagnosis: PAD/ BILATERAL FOOT WOUNDS Post-op diagnosis: same Procedure: Abdominal aortogram Aortogram with bilateral lower extremity runoff Selective right lower extremity angiographic Anesthesia: MAC Surgeon: Manuel Mott Was there an behavioral modification assistant present: No Estimated blood loss (cc): 0 Specimen: 0 Condition: stable Disposition: floor
[2019-03-18] MEDS ORDERED: Acetaminophen 325 MG TABLET PO PRN (11:52)
[2019-03-18] MEDS ORDERED: Ondansetron 4 MG/2 ML VIAL IVP PRN (11:52)
[2019-03-18] MEDS: cefTRIAXone 1,000 MG in Water for inj. (sterile) 20 ML 10 ML IVP SCH (12:29)
--- NOTE | 2019-03-18 12:36 | Invasive Diagnostic Lab Proc ---
Name: Carlyle Canales Date of Study: 03/18/2019 Date: 1945 Ht: 173.0 in Medical Record#: [id number] Age: 74 Wt: 119 lb Gender: Male BSA: 2.3 Order #: [id number] BMI: 39.76 Physicians Performing MD: Manuel Mott MD, FACS Referring MD: Referring MD: Staff Name Position Time In Carlos Quintana RN Monitor Carlos Quintana RN Gas Station Operator Sites, Anaid RT (R) Scrub Elly Atwood RT (R) Monitor Indications Diminished or Absent Pulses Procedures Performed AORTOGRAPHY, ABDOMINAL S&I AORTOGRAPHY EXT Bilat S&I CATH PLCMT 1ST ORDER AB/PEL/EX Pre-Procedure Checklist Informed consent is complete signed and on chart. H&P is on chart. ID band is on and ID verified with patient. Patient NPO for procedure The procedure was described for the patient and questions were answered. ECG is on chart. Plan of Care Patient will tolerate the procedure without complications. Adequate level of comfort will be maintained. Hemodynamics will remain stable Patient will recover from procedure without complications. Respiratory function will be maintained. Cardiac rhythm will remain stable. Patient temperature will be maintained. Patient and/or family have verbalized understanding of the procedure. Patient Education Chief Complaint/Reason for Test: Peripheral angiogram Developmental Category: Geriatric (65+ years) Learning Barriers: None Education Needs: Procedure Education Method: Verbal Information Taught: Peripheral angiogram Educational Evaluation: Able to repeat information Intravenous Access Time IV Size Location DC'd Fluid/Drip Rate Units RN 09:58 Started with 20g 1 1/4" Rt Antecubital 0.9NaCl 25 ml/hr Amena Liu RN Allergies No Known Allergies Vital Signs Time BP Systolic BP Diastolic HR O2 Sats ASA 09:57 AM 09:57 AM 10:13 AM 10:28 AM 10:43 AM 10:58 AM 11:22 AM 11:22 AM 10:00 AM 140 78 84 97 10:04 AM 159 76 82 98 10:09 AM 136 70 81 95 10:14 AM 117 66 73 97 10:19 AM 135 66 81 98 10:24 AM 147 73 80 98 10:30 AM 140 72 80 10:34 AM 144 75 80 10:39 AM 147 101 80 10:45 AM 145 69 77 10:50 AM 163 79 79 10:55 AM 155 74 78 11:00 AM 149 75 78 99 11:05 AM 149 76 78 99 11:10 AM 142 75 77 100 11:15 AM 145 77 77 98 11:20 AM 149 72 77 100 11:25 AM 142 76 77 100 11:30 AM 144 74 76 100 11:35 AM 71 54 77 99 11:37 AM 149 75 77 99 11:40 AM 153 75 76 99 11:45 AM 140 75 77 100 11:50 AM 144 75 77 99 11:55 AM 149 78 77 98 Procedure Medications Time Medication Dose Units Method Route 09:57 AM Oxygen 2 L/min nasal cannula 10:04 AM Versed 1 mg Intravenous 10:04 AM Fentanyl 50 mcg Intravenous 10:07 AM Lidocaine 2% 10 ml Subcutaneous 10:09 AM Lidocaine 2% 10 ml Subcutaneous 10:23 AM Versed 1 mg Intravenous 10:58 AM Versed 1 mg Intravenous 10:58 AM Fentanyl 50 mcg Intravenous ASA Classification: CLASS III- Severe systemic disease (i.e. prior AMI, diabetes with vascular complications, morbid obesity) Jenni Score Preprocedure Postprocedure Activity 2- Moves 4 extremities sustained head lift Activity 2- Moves 4 extremities sustained head lift Circulation 2- SBP +/= 20 points of pre-anesthetic level Circulation 2- SBP +/= 20 points of pre-anesthetic level Consciousness 2- Awake and alert oriented x 3 Consciousness 2- Awake and alert oriented x 3 O2 Saturation 2- Able to maintain O2 satruation of 92% on room air O2 Saturation 2- Able to maintain O2 satruation of 92% on room air Respiratory 2- Able to deep breathe and cough well Respiratory 2- Able to deep breathe and cough well Total Score 10 Total Score 10 Contrast: Isovue 300- 150ml Contrast Amount: 144 ml Fluoro Dose: 1532 mGy Procedure Log Time Note Entered By 09:56 AM Pt arrived to cardiac cath lab radiology technologist 1 at 09:56 [email or web address] 09:56 AM Amena Liu RN Position: Monitor Time in: 09:56 [email or web address] 09:56 AM Carlos Quintana RN Position: Gas Station Operator Time in: 09:56 [email or web address] 09:57 AM Anaid Gabriel RT (R) Position: Scrub Time in: 09:56 [email or web address] 09:57 AM Elly Atwood RT (R) Position: Monitor Time in: 09:57 [email or web address] 09:57 AM Case delayed: No [email or web address] 09:57 AM Hair removed from procedure site in procedure lab using clippers. Bilateral groin prepped with Chloraprep by Carlos Quintana RN, then patient was draped. Skin intact. [email or web address] 09:57 AM Physician arrived 09:57 [email or web address] 09:57 AM ASA Class CLASS III- Severe systemic disease (i.e. prior AMI, diabetes with vascular complications, morbid obesity) [email or web address] 09:57 AM To and diomedes completed [email or web address] 09:57 AM Sign in performed according to hospital policy. [email or web address] 09:57 AM Procedure start :57 [email or web address] 09:57 AM 09:57 Oxygen at 2 L/min per nasal cannula by Carlos Quintana RN [email or web address] 09:57 AM Time: :57 Is patient comfortable and pain free?: Yes [email or web address] 09:57 AM Time: :57LOC: 5 = Fully awake and oriented or at pre-proc level [email or web address] 09:57 AM no IV present upon pt arrival, new IV started by this RN [email or web address] 09:59 AM IV Supplies used: J loop Angio Cath. [email or web address] 09:59 AM Patient charges- Angio tray pack, Pulse Oximetry and ACIST tubing and transducer [email or web address] 10:04 AM 10:04 Versed 1 mg Intravenous Given by Carlos Quintana RN [email or web address] 10:04 AM 10:04 Fentanyl 50 mcg Intravenous Given by Carlos Quintana RN [email or web address] 10:06 AM Time out perfomed [email or web address] 10:07 AM 10:07 10 ml Lidocaine 2% to left groin Subcutaneous Given By Manuel Mott MD, FACS [email or web address] 10:09 AM Smart Needle utilized for vascular access at this time [email or web address] 10:09 AM 10:09 10 ml Lidocaine 2% to left groin Subcutaneous Given By Manuel Mott MD, FACS [email or web address] 10:12 AM Unsuccessful access attempt # 1 into the left Femoral artery. Manual pressure applied to achieve hemostasis.. [email or web address] 10:13 AM Time: :57LOC: 5 = Fully awake and oriented or at pre-proc level [email or web address] 10:13 AM Time: :57 Is patient comfortable and pain free?: Yes [email or web address] 10:15 AM Access obtained in the left femoral vein by percutaneous puncture. 5 Fr. 10 cm Terumo [place] sheath placed in left femoral artery [email or web address] 10:15 AM 0.035 180cm J-wire wire utilized to assist with catheter placement [email or web address] 10:15 AM 5Fr Short pigtail catheter inserted over the wire [email or web address] 10:16 AM 4cc contrast hand injected [email or web address] 10:17 AM Abdominal aorta angiography performed in AP contrast injected 15/30mls [email or web address] 10:16 AM Wire removed [email or web address] 10:18 AM Catheter removed [email or web address] 10:17 AM wire reinserted [email or web address] 10:21 AM Smart Needle utilized for vascular access at this time [email or web address] 10:22 AM second Access obtained in the left femoral artery by percutaneous puncture. 5 Fr. 10 cm Terumo [place] sheath placed in left femoral artery [email or web address] 10:22 AM venous sheath pulled [email or web address] 10:24 AM 10:23 Versed 1 mg Intravenous Given by Carlos Quintana RN [email or web address] 10:25 AM pigtail reinserted [email or web address] 10:26 AM 3cc contrast hand injected [email or web address] 10:27 AM Setting up for stepping [email or web address] 10:28 AM Time: 10:13 Is patient comfortable and pain free?: Yes [email or web address] 10:28 AM Time: 10:13LOC: 4 = Oriented but drowsy [email or web address] 10:27 AM Abdominal aorta angiography performed in AP contrast injected 15/30 mls. [email or web address] 10:32 AM Abdominal angiogram with runoff completed: 6 ml/sec for a total of 60 mls [email or web address] 10:35 AM Catheter removed [email or web address] 10:35 AM 5Fr Omniflush catheter inserted over the wire [email or web address] 10:39 AM Intervention started at this time [email or web address] 10:39 AM 0.035 Amplatz Super Stiff 260cm guidewire advanced. [email or web address] 10:40 AM Guide wire removed intact [email or web address] 10:40 AM J wire reinserted [email or web address] 10:42 AM wire removed [email or web address] 10:42 AM 3cc contrast hand injected [email or web address] 10:43 AM Time: 10:28LOC: 4 = Oriented but drowsy [email or web address] 10:43 AM Time: 10:28 Is patient comfortable and pain free?: Yes [email or web address] 10:42 AM wire reinserted [email or web address] 10:44 AM Amplatz wire reinserted [email or web address] 10:47 AM Sheath exchanged for a 6 Fr 45 cm Terumo [place] sheath inserted into left femoral artery [email or web address] 10:49 AM 5Fr 65cm Glidecath Angled-Taper guide catheter advanced [email or web address] 10:51 AM wire removed [email or web address] 10:52 AM glidewire reinserted [email or web address] 10:56 AM repositioning equipment [email or web address] 10:58 AM Time: 10:43LOC: 4 = Oriented but drowsy [email or web address] 10:58 AM Time: 10:43 Is patient comfortable and pain free?: Yes [email or web address] 10:58 AM 10:58 Versed 1 mg Intravenous Given by Carlos Quintana RN [email or web address] 10:58 AM 10:58 Fentanyl 50 mcg Intravenous Given by Carlos Quintana RN [email or web address] 10:59 AM 4cc contrast hand injected [email or web address] 11:00 AM glidewire removed [email or web address] 11:00 AM 0.014 [place] 14, 30 gram 300cm guidewire advanced. [email or web address] 11:04 AM Victory wire removed [email or web address] 11:04 AM long glidewire reinserted [email or web address] 11:07 AM 0.014 [place] 14, 30 gram 300cm guidewire advanced. [email or web address] 11:09 AM glidecath removed [email or web address] 11:10 AM 5Fr 135cm [place] guide catheter advanced [email or web address] 11:13 AM Time: 10:58 Is patient comfortable and pain free?: Yes [email or web address] 11:13 AM Time: 10:58LOC: 4 = Oriented but drowsy [email or web address] 11:13 AM glidewire removed [email or web address] 11:14 AM stiff glidewire reinserted [email or web address] 11:17 AM stiff glidewire removed [email or web address] 11:17 AM Victory wire reinserted [email or web address] 11:21 AM victory wire removed [email or web address] 11:21 AM 4Fr 150cm [place] guide catheter advanced [email or web address] 11:22 AM 0.014 [place] FLX 300cm guidewire advanced. [email or web address] 11:22 AM Time: : Is patient comfortable and pain free?: Yes [email or web address] 11:22 AM Time: :LOC: 4 = Oriented but drowsy [email or web address] 11:28 AM [place]on wire removed [email or web address] 11:28 AM 0.014 [place] 14, 30 gram 300cm guidewire advanced. [email or web address] 11:37 AM victory wire removed [email or web address] 11:37 AM Time: :LOC: 4 = Oriented but drowsy [email or web address] 11:42 AM Guide catheter removed intact [email or web address] 11:42 AM Guide wire removed intact [email or web address] 11:42 AM Procedure completed at 11:42 [email or web address] 11:44 AM Sign Out completed: Radiation Dose 1531.58 mGy Fluoro Time: 26.9 minutes. Isovue 300- 150ml contrast 144 ml given by Manuel Mott MD, FACS. Complications: None. Confirmed administered medications:Yes Sedation minutes 100 [email or web address] 11:44 AM Arterial sheath pulled using manual compression and V+Pad for 15 minutes by Carlos Quintana RN [email or web address] 11:44 AM Estimated Blood Loss: less than 20cc [email or web address] 11:44 AM Post Blood Pressure: 153/75 [email or web address] 11:44 AM Post EKG: NSR [email or web address] 11:45 AM Information taught: Peripheral angiogram [email or web address] 11:45 AM Education needs: Procedure, Plan of Care, and Responsibilities of Patient in Care [email or web address] 11:45 AM Learning barriers: None [email or web address] 11:45 AM Education methods: Verbal [email or web address] 11:45 AM Patient pain level 0/10 [email or web address] 11:45 AM no family present at this time [email or web address] 11:52 AM Report given to She VIERA. Pt taken to , Room # 44 11:52 [email or web address] 11:52 AM Delay to floor: No [email or web address] 11:59 AM Site status No bleeding/hematoma - Lt Groin as reported by Carlos Quintana RN at 11:59 [email or web address] 11:59 AM Opsite applied [email or web address] 12:00 PM Delay to floor: No [email or web address] 12:00 PM Patient out of room 12:00 [email or web address] Post Procedure Information Blood Pressure: 153/75 mmHg Rhythm: NSR Report Given To: Autumn Site Checks Time Location Status Staff Sheath In? Note 11:59:00 AM Lt Groin No bleeding/hematoma Carlos Quintana RN Pulses Time Site Pre Procedure Post Procedure Note 03/18/2019 11:00:00 PM Bilateral radial 2+ 03/18/2019 9:03:00 AM Bilateral DP Doppler Updated by Amena Liu RN on 03/18/2019 12:02:23 PM electronically signed on 03/18/2019 12:28:22 PM with status of Final
--- NOTE | 2019-03-18 12:58 | Internal Med Progress Note ---
Hospitalist Progress Note - Encounter Date of Encounter: 03/18/19 Time of Encounter: 08:15 - Subjective Interval History: Patient seen and examined bedside; states that he is feeling well today. Denies having any pain in his lower extremity. Patient underwent angiography. Per the vascular invasive report, there was an occlusion present at the right james perficial femoral artery. The right SFA occlusion could not be crossed due to calcification. Spoke with Dr. Aguirre; patient will be taken for a bypass surgery at the right femoral popliteal artery on Thursday. Eliquis will be held until Thursday. We will obtain echocardiogram and EKG for preop risk assessment. - Exam Vitals: Temp Pulse Resp BP Pulse Ox 97.7 F 84 20 145/69 95 03/18/19 07:02 03/18/19 07:02 03/18/19 07:02 03/18/19 07:02 03/18/19 07:02 Exam: General: conversant, no acute distress Head: atraumatic, normocephalic Eye: PERRL, EOMI, conjuntiva pink, sclera anicteric Neck: Supple, trachea midline; No lymphadenopathy Respiratory: CTAB. No accessory muscle use, wheezes, rales, or rhonchi Cardiovascular: RRR, +S1, +S2; no murmurs, rubs, gallops Abdomen: Soft, nontender Extremities: Weak pulses in b/l Les, L>R; black discolorations on both feet; may represent dry gangrene Psychiatric: Normal affect, normal mood Skin: Dry, intact - Assessment and Plan (1) Peripheral vascular disease Current Visit: Yes Status: Chronic Assessment and Plan: - [facility] for concerns of absent pulses in the LLE - Patient is a known history of peripheral vascular disease - On presentation, patients pulse was palpable the left lower extremity - OLEKSANDR performed in ED: 0.73 on the right, 1.46 on the left; abnormal waveforms in the right lower extremity - Per peripheral vascular invasive report: Abdominal aortic normal in appearance and free of obstruction, distal right superficial femoral artery occluded - Recommendations are to optimize medical therapy, risk factor modification, and bypass surgery at the right femoral popliteal artery - Spoke with vascular surgeon; the right SFA occlusion could not be crossed due to calcification Plan: - Bypass procedure will be performed Thursday - We will obtain echocardiogram for preop assessment - Will continue to hold patients Eliquis (2) Alcohol use Current Visit: Yes Status: Acute Assessment and Plan: - Per event note on 03/18: Patient appeared confused and was removing telemetry leads and his IVs - When asked, patient admits to drinking daily, and asked the nurse if he could have a beer - He was assessed, he appeared to be confused and was alert and oriented 2 - CIWA protocol was started (3) UTI (urinary tract infection) Current Visit: Yes Status: Acute Assessment and Plan: - Urinalysis demonstrated moderately elevated leukocyte esterase and TNTC white blood cells - Per that note on 03/18: Patient had foul-smelling urine noted with a cloudy appearance - Urine culture has been ordered and is currently pending - Started empiric Rocephin (4) Congestive heart failure Current Visit: Yes Status: Chronic Assessment and Plan: - Patient has a known history of congestive heart failure - No echocardiogram is on file; will order echo for pre-op assessment - Monitor intake and output - Daily weights - Continue home medications (5) Diabetes Current Visit: Yes Status: Chronic Assessment and Plan: - Sliding scale insulin - Blood glucose checks (6) Hypertension Current Visit: Yes Status: Acute Assessment and Plan: - Currently well-controlled on amlodipine, carvedilol, lisinopril (7) DVT prophylaxis Current Visit: Yes Status: Acute Assessment and Plan: - Eliquis being held per the recommendations of vascular surgery - Time Spent with Patient Total time spent is greater than 50% in coordination of care (as documented) at patient's floor/unit and/or counseling patient: Internal Medicine: Result - Labs CBC & Chem 7: 03/18/19 04:58 03/18/19 04:58 Labs: Short CBC 03/17/19 03/18/19 Range/Units 19:24 04:58 WBC 6.1 5.0 (4.3-11.1) K/mcL Hgb 12.0 L 11.8 L (12.9-16.9) g/dL Hct 35.6 L 35.0 L (37.5-50.1) % Plt Count 113 L 109 L (140-400) K/mcL Neutrophils # 4.2 3.3 (1.6-8.9) K/mcL BMP 03/17/19 03/18/19 19:24 04:58 Sodium 139 138 Potassium 4.6 3.9 Chloride 100 104 Carbon Dioxide 27 28 BUN 36 H 30 H Creatinine 1.31 H 0.98 Glucose 190 H 106 H Calcium 9.0 8.9 Liver Function 03/18/19 Range/Units 04:58 Total Bilirubin 0.4 (0.3-1.0) mg/dL AST 12 L (13-39) Units/L ALT 8 (7-52) Units/L Alkaline Phosphatase 71 (34-104) Units/L Albumin 3.6 (3.5-5.7) g/dL Urine 03/18/19 Range/Units 03:00 Urine Color Yellow (Yellow) Urine Clarity Cloudy A (Clear) Urine pH 6.0 (5.0-8.0) pH Units Ur Specific [place] 1.018 (1.010-1.025) Urine Protein 100 H (Neg-Trace) mg/dL Urine Glucose (UA) >=1000 H (Normal) mg/dL - ABG Interpretation ABG results: PT/INR, D-dimer PT 13.9 Seconds (9.4-12.1) H 03/18/19 04:58 Consult Discharge Plan - Plan Referrals: [facility] [Primary Care Provider] - (4) Congestive heart failure Qualifiers: Heart failure type: unspecified Heart failure chronicity: chronic Qualified Code(s): I50.9 - Heart failure, unspecified (5) Diabetes Qualifiers: Diabetes mellitus type: type 2 Diabetes mellitus 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
--- NOTE | 2019-03-18 13:24 | Event Note ---
Date of Encounter: 03/18/19 Time of Encounter: 13:22 Plan right femoral-popliteal bypass graft on Thursday. Unable to cross calcific right SFA occlusion.
[2019-03-18] MEDS ORDERED: Perflutren Lipid Microsphere 1.3 ML in 0.9 % Sodium Chloride 8.7 ML IVP ONE (20:01)
[2019-03-18] MEDS: Melatonin 3 MG TABLET PO SCH (20:54)
[2019-03-18] MEDS: Divalproex (24 HR) 500 MG TABLET PO SCH (20:54)
[2019-03-19] MEDS: Insulin LISPRO 300 UNITS/3 ML VIAL SQ SCH ×4 (01:05→17:29)
[2019-03-19] MEDS ORDERED: cefTRIAXone 1,000 MG in Water for inj. (sterile) 20 ML 10 ML IVP SCH (09:00)
[2019-03-19] MEDS: Gabapentin 400 MG CAPSULE PO SCH ×2 (09:09→20:32)
[2019-03-19] MEDS: Aspirin Enteric Coated 81 MG Tablet PO SCH (09:09)
[2019-03-19] MEDS: Cholecalciferol (D-3) 1,000 UNIT TABLET PO SCH (09:10)
[2019-03-19] MEDS: amLODIPine 5 MG TABLET PO SCH (09:10)
[2019-03-19] MEDS: BuPROPion SR (12 HR) 150 MG TABLET PO SCH (09:10)
[2019-03-19] MEDS: cefTRIAXone 1,000 MG in Water for inj. (sterile) 20 ML 10 ML IVP SCH (09:10)
[2019-03-19] MEDS: Lisinopril 20 MG TABLET PO SCH (09:10)
[2019-03-19] MEDS: Folic Acid 1 MG TABLET PO SCH (09:10)
[2019-03-19] MEDS: Thiamine (B-1) 100 MG TABLET PO SCH (09:11)
--- NOTE | 2019-03-19 13:22 | Internal Med Progress Note ---
Hospitalist Progress Note - Encounter Date of Encounter: 03/19/19 Time of Encounter: 13:25 - Exam Vitals: Temp Pulse Resp BP Pulse Ox 98.5 F 74 20 105/57 92 03/19/19 11:04 03/19/19 11:04 03/19/19 11:04 03/19/19 11:04 03/19/19 11:04 Exam: General: Alert and oriented 3 lying in bed in no acute distress Skin: Quarter-sized black eschar on the medial aspect of the left foot at the level of the first metatarsal joint. Every toe of right foot has excoriations along the lateral portion of the toe. HEENT:EOM, pupils equal, round and reactive. Cardiovascular:Normal S1 & S2, no rubs, murmurs or gallops. No JVD. Pulse regular. Lungs:Normal breath sounds, no wheezes or crackles. Abdomen: Left lower extremity warm to palpation with palpable DP pulse. Right lower extremity cooler in comparison. Unable to palpate DP or PT pulses. Obtained via Doppler. Extremities: Bilateral lower extremities without any edema or cyanosis. Neurological:Normal cognition and motor skills. Pulses:Carotid and radial pulses normal +2. - Assessment and Plan (1) Peripheral vascular disease Current Visit: Yes Status: Chronic Assessment and Plan: Patient is a history of PVD [facility] evaluation of absent pulses in the left lower extremity. Right lower extremity in comparison to left is cooler to touch and PT or DP pulse and pulse not palpable. Pulse obtained via Doppler. Patient at this time denies any pain area does report paresthesias but states that this has been ongoing in the setting of his diabetic neuropathy and is unchanged. Labs otherwise unremarkable. No evidence of an infectious process. Patient takes Eliquis at home. Aortogram with bilateral LE runoff showed right SFA occlusion. - Eliquis held for procedure - Heparin 5,000 units SQ BID for now - Plan is for fem-pop bypass graft in 2 days (2) Diabetes Current Visit: Yes Status: Chronic Assessment and Plan: Sliding scale insulin. Blood glucose checks. (3) Congestive heart failure Current Visit: Yes Status: Chronic Assessment and Plan: History of congestive heart failure. Patient received 1 L fluid bolus in the ED as his . Monitor I's and O's. Daily weights. Not in acute exacerbation. Echocardiogram during this admission was limited due to patient positioning and patient compliance. Resume medical management with home medications. If patient shows any signs of edema, will resume home PO Lasix 20 mg daily. (4) DVT prophylaxis Current Visit: Yes Status: Acute Assessment and Plan: Heparin SQ, Eliquis held for planned surgery in 2 days. (5) Hypertension Current Visit: Yes Status: Acute Assessment and Plan: Norvasc, lisinopril, Coreg - Time Spent with Patient Total time spent is greater than 50% in coordination of care (as documented) at patient's floor/unit and/or counseling patient: Internal Medicine: Result - Labs CBC & Chem 7: 03/18/19 04:58 03/18/19 04:58 - ABG Interpretation ABG results: PT/INR, D-dimer PT 13.9 Seconds (9.4-12.1) H 03/18/19 04:58 - Impressions Impressions Echocardiogram 03/18/19 15:44 Impressions: Technically sub-optimal due to poor echocardiographic windows. Patient refused to lay in proper position for the study. Patient removed his IV, contrast enhancement could not be administered. Not all LV segments were well visualized. Grossly, overall LV function appears normal. Mild left ventricular diastolic dysfunction. Grossly normal right ventricular structure and function. Unable to estimate RVSP due to lack of TR jet. No obvious significant valvular dysfunction. Findings: Study Quality * Technically sub-optimal due to poor echocardiographic windows. * Patient refused to lay in proper position for the study. * Patient removed his IV, contrast could not be administered. ECG Findings * Normal sinus rhythm. Left Ventricle * Not all LV segments were well visualized. Grossly, overall LV function appears normal. * Mild left ventricular diastolic dysfunction. Right Ventricle * Grossly normal right ventricular structure and function. Left Atrium * Mildly dilated left atrium. Right Atrium * Right atrium is not well visualized. Interatrial Septum * Interatrial septum not well evaluated. Aortic Valve * Aortic valve not well visualized. * No aortic regurgitation. * No aortic stenosis. Mitral Valve * Normal mitral valve structure and function. * No mitral regurgitation. * No mitral stenosis. Tricuspid Valve * Tricuspid valve not well visualized. * No tricuspid regurgitation. * Unable to estimate RVSP due to lack of TR jet. Pulmonic Valve * Pulmonic valve not well visualized. Pericardium * The pericardium appears normal. IVC * Normal IVC dimensions and inspiratory collapse. Pulmonary Artery * Pulmonary artery not well visualized. 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
--- NOTE | 2019-03-19 14:11 | Vascular/[facility] Progress Note ---
Date of Encounter: 03/19/19 Time of Encounter: 13:10 - Assessment and plan (1) Peripheral vascular disease Current Visit: Yes Status: Chronic The patient is severe peripheral vascular disease with ischemic ulceration. His right superficial femoral artery is occluded. He is diminished pulse exam. He does report intermittent rest pain. Recommend continued saphenous heparin. The patient will undergo a right femoral to popliteal artery bypass for rev ascularization next week. (2) Hypertension Current Visit: Yes Status: Acute The patient was counseled regarding atherosclerotic risk factor reduction. 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 He denies fevers or chills. He denies chest pain or shortness of breath. Vital Signs, Last 4 Hours Temp Pulse Resp BP Pulse Ox 03/19/19 11:04 98.5 F 74 20 105/57 92 - Physical Examination General: Present: Conversant, No Apparent Distress Cardiac: Present: Reg Rate and Rhythm Lungs: Present: Normal Breath Sounds Neuro: Present: Alert and responsive Vascular: Present: Capillary refill delayed (Right foot), Pulse, absent (Right pedal pulses are absent, Doppler signals present), Pulse, normal (Left pedal pulses palpable), Cyanosis (Right forefoot cyanosis), Surgical incisions (No hematoma). Absent: Edema Abdomen: Present: Soft Skin: Present: Wound/ulcer(s) (Ischemic ulceration noted in the bilateral lower extremities. The left is affected greater than the right.) Results 03/18/19 04:58 03/18/19 04:58 - Imaging / Other Tests Angiogram: image reviewed (Right superficial femoral artery occlusion with above-knee popliteal reconstitution.) Consult Discharge Plan - Plan Referrals: [facility] [Primary Care Provider] -
[2019-03-19] MEDS: *HR* Heparin 5,000 UNIT/ML VIAL SQ SCH (17:45)
[2019-03-19] MEDS: Melatonin 3 MG TABLET PO SCH (20:31)
[2019-03-19] MEDS: Divalproex (24 HR) 500 MG TABLET PO SCH (20:32)
[2019-03-20] MEDS: Insulin LISPRO 300 UNITS/3 ML VIAL SQ SCH ×4 (00:04→17:04)
[2019-03-20] MEDS: *HR* Heparin 5,000 UNIT/ML VIAL SQ SCH ×2 (06:09→17:48)
[2019-03-20] MEDS ORDERED: Furosemide 20 MG TABLET PO SCH (09:00)
[2019-03-20] MEDS: Cholecalciferol (D-3) 1,000 UNIT TABLET PO SCH (09:31)
[2019-03-20] MEDS: Gabapentin 400 MG CAPSULE PO SCH ×2 (09:31→20:38)
[2019-03-20] MEDS: amLODIPine 5 MG TABLET PO SCH (09:32)
[2019-03-20] MEDS: Folic Acid 1 MG TABLET PO SCH (09:32)
[2019-03-20] MEDS: Thiamine (B-1) 100 MG TABLET PO SCH (09:32)
[2019-03-20] MEDS: BuPROPion SR (12 HR) 150 MG TABLET PO SCH (09:32)
[2019-03-20] MEDS: cefTRIAXone 1,000 MG in Water for inj. (sterile) 20 ML 10 ML IVP SCH (09:32)
[2019-03-20] MEDS: Aspirin Enteric Coated 81 MG Tablet PO SCH (09:32)
[2019-03-20] MEDS: Lisinopril 20 MG TABLET PO SCH (09:32)
[2019-03-20 11:25] LABS: Basophils # 0.1 K/mcL (0.0-0.2); Basophils % 0.7 %; Eosinophils # 0.1 K/mcL (0.0-0.6); Eosinophils % 1.7 %; Hematocrit 34.8 % (37.5-50.1); Hemoglobin 11.9 g/dL (12.9-16.9); Immature Granulocytes % 1.4 % (0-4); Lymphocytes % 14.6 %; Mean Corpuscular HGB Conc 34.2 g/dL (31.6-35.5); Mean Corpuscular Hemoglobin 33.5 pg (28.0-33.3); Mean Platelet Volume 8.8 fL (9.4-12.4); Monocytes # 0.6 K/mcL (0.0-1.3); Monocytes % 8.1 %; Neutrophils # 5.1 K/mcL (1.6-8.9); Nucleated Red Blood Cells 0.3 /100 WBC (0); Platelet Count 117 K/mcL (140-400); Red Blood Count 3.55 M/mcL (4.19-5.50); Red Cell Distribution Width 15.3 % (11.5-14.5); Segmented Neutrophils % 73.5 %
[2019-03-20 11:43] LABS: BUN/Creatinine Ratio 24 (6-26); Blood Urea Nitrogen 27 mg/dL (8-23); Carbon Dioxide 26 mEq/L (23-29); Chloride 102 mEq/L (98-107); Glucose 168 mg/dL (70-105); Osmolality,Calculated 291 (280-300); Potassium 4.6 mEq/L (3.5-5.1); Sodium 136 mEq/L (136-145); eGFR For Non-African Americans > 60 (> 60)
[2019-03-20] MEDS: Furosemide 20 MG TABLET PO SCH (11:58)
--- NOTE | 2019-03-20 12:48 | Internal Med Progress Note ---
Hospitalist Progress Note - Encounter Date of Encounter: 03/20/19 Time of Encounter: 12:46 - Subjective Interval History: No acute events. patient states foot is not painful, denies any open wounds or ulcers. Denies fevers or pain in lower extremities. - Exam Vitals: Temp Pulse Resp BP Pulse Ox 99.1 F 81 20 98/52 98 03/20/19 11:11 03/20/19 11:11 03/20/19 11:11 03/20/19 11:11 03/20/19 11:11 Exam: General: Alert and oriented 3 lying in bed in no acute distress Skin: Quarter-sized black eschar on the medial aspect of the left foot at the level of the first metatarsal joint. Every toe of right foot has excoriations along the lateral portion of the toe. HEENT:EOM, pupils equal, round and reactive. Cardiovascular:Normal S1 & S2, no rubs, murmurs or gallops. No JVD. Pulse regular. Lungs:Normal breath sounds, no wheezes or crackles. Abdomen: Left lower extremity warm to palpation with palpable DP pulse. Right lower extremity cooler in comparison. Unable to palpate DP or PT pulses. Obtained via Doppler. Extremities: Bilateral lower extremities without any edema or cyanosis. Neurological:Normal cognition and motor skills. Pulses:Carotid and radial pulses normal +2. - Assessment and Plan (1) Peripheral vascular disease Current Visit: Yes Status: Chronic Assessment and Plan: Patient is a history of PVD [facility] evaluation of absent pulses in the left lower extremity. Right lower extremity in comparison to left is cooler to touch and PT or DP pulse and pulse not palpable. Pulse obtained via Doppler. Patient at this time denies any pain area does report paresthesias but states that this has been ongoing in the setting of his diabetic neuropathy and is unchanged. Labs otherwise unremarkabl e. No evidence of an infectious process. Patient takes Eliquis at home. Aortogram with bilateral LE runoff showed right SFA occlusion. - Eliquis held for procedure - Heparin 5,000 units SQ BID for now - Plan is for fem-pop bypass graft tomorrow (2) Diabetes Current Visit: Yes Status: Chronic Assessment and Plan: Sliding scale insulin. Blood glucose checks ACHS. Okay to switch ISS and checks to Q6H while NPO tonight. (3) Congestive heart failure Current Visit: Yes Status: Chronic Assessment and Plan: History of congestive heart failure. Patient received 1 L fluid bolus in the ED as his . Monitor I's and O's. Daily weights. Not in acute exacerbation. Echocardiogram during this admission was limited due to patient positioning and patient compliance. Resume medical management with home medications. (4) DVT prophylaxis Current Visit: Yes Status: Acute Assessment and Plan: Heparin SQ, Eliquis held for planned surgery in 2 days. (5) Hypertension Current Visit: Yes Status: Acute Assessment and Plan: Norvasc, lisinopril, Coreg - Time Spent with Patient Total time spent is greater than 50% in coordination of care (as documented) at patient's floor/unit and/or counseling patient: Internal Medicine: Result - Labs CBC & Chem 7: 03/20/19 11:04 03/20/19 11:04 Labs: Short CBC 03/20/19 Range/Units 11:04 WBC 7.0 (4.3-11.1) K/mcL Hgb 11.9 L (12.9-16.9) g/dL Hct 34.8 L (37.5-50.1) % Plt Count 117 L (140-400) K/mcL Neutrophils # 5.1 (1.6-8.9) K/mcL BMP 03/20/19 11:04 Sodium 136 Potassium 4.6 Chloride 102 Carbon Dioxide 26 BUN 27 H Creatinine 1.12 Glucose 168 H Calcium 9.0 - ABG Interpretation ABG results: PT/INR, D-dimer PT 13.9 Seconds (9.4-12.1) H 03/18/19 04:58 Consult Discharge Plan - Plan Referrals: [facility] [Primary Care Provider] - (2) Diabetes Qualifiers: Diabetes mellitus type: type 2 Diabetes mellitus 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: with halfway use Diabetes mellitus complication status: with circulatory complication Diabetes mellitus complication detail: with peripheral angiopathy with gangrene Qualified Code(s): E11.52 - Type 2 diabetes mellitus with diabetic peripheral angiopathy with gangrene; Z79.4 - 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
--- NOTE | 2019-03-20 14:41 | Vascular/[facility] Progress Note ---
Date of Encounter: 03/20/19 Time of Encounter: 11:00 - Assessment and plan (1) Peripheral vascular disease Current Visit: Yes Status: Chronic The patient is severe peripheral vascular disease with ischemic ulceration. His right superficial femoral artery is occluded. He is diminished pulse exam. He does report intermittent rest pain. Recommend continued saphenous heparin. The patient will undergo a right femoral to popliteal artery bypass tomorrow. (2) Hypertension Current Visit: Yes Status: Acute The patient was counseled regarding atherosclerotic risk factor reduction. 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 He denies fevers or chills. He denies chest pain or shortness of breath. Vital Signs, Last 4 Hours Temp Pulse Resp BP Pulse Ox 03/20/19 11:11 99.1 F 81 20 98/52 98 - Physical Examination General: Present: Conversant, No Apparent Distress HEENT: Present: Atraumatic, Pupils equal Cardiac: Present: Reg Rate and Rhythm Lungs: Present: Normal Breath Sounds Neuro: Present: Alert and responsive, Motor nerves grossly intact, Sensory nerves grossly intact Vascular: Present: Normal capillary refill (Right pedal pulses are absent, signals are present), Pulse, normal (Left lower extremity pedal pulses are normal). Absent: Cyanosis, Edema Skin: Present: Wound/ulcer(s) (Bilateral lower extremity ulcerations are present no erythema or drainage noted) Results 03/28/19 04:00 03/28/19 04:00 Lab Results, Last 24 hours 03/20/19 03/20/19 11:04 11:04 WBC 7.0 Hgb 11.9 L Hct 34.8 L Plt Count 117 L Sodium 136 Potassium 4.6 Chloride 102 Carbon Dioxide 26 BUN 27 H Creatinine 1.12 Glucose 168 H Calcium 9.0 - Imaging / Other Tests Angiogram: image reviewed Consult Discharge Plan - Plan Additional Instructions: Keep surgical sites dry for total of 5 days following surgery. No lifting greater than 10 pounds. No manual labor. Patient may walk inside or outside. Patient may use stairs as tolerated. Resume usual home medications from a vascular surgery perspective. Follow-up in vascular surgery clinic in 2 weeks after discharge. requires [facility] to [facility] for RUQ US findings and referral to a wound clinic for right foot wounds continued care Referrals: [facility] [Primary Care Provider] - Manuel Mott MD [Partnered Physician] - (Follow-up with Dr. Mott in vascular surgery clinic in 2 weeks after discharge.)
[2019-03-20] MEDS: Divalproex (24 HR) 500 MG TABLET PO SCH (20:38)
[2019-03-20] MEDS: Melatonin 3 MG TABLET PO SCH (20:38)
[2019-03-21] MEDS: Insulin LISPRO 300 UNITS/3 ML VIAL SQ SCH ×4 (00:18→19:23)
--- NOTE | 2019-03-21 01:10 | Anesthesia Evaluation PreOp ---
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: Other (Diabetic Neuropathy, Frequent falls, Anxiety/Depression) Other Medical History: Diabetes Type II Anesthesia History: No Prior Anesthetic Complications, Past Anesthesia Alcohol Use: occasionally Drug use: none Medications and Allergies Apixaban [Eliquis] 5 mg PO BID 03/17/19 [History] Aspirin [Adult Aspirin] 81 mg PO DAILY 03/17/19 [History] Atorvastatin [Lipitor] 40 mg PO 1700 03/17/19 [History] BuPROPion SR (12 HR) [Wellbutrin SR] 150 mg PO DAILY 03/17/19 [History] Carvedilol [Coreg] 6.25 mg PO BIDWM 03/17/19 [History] Cholecalciferol (D-3) [Vitamin D] 5,000 unit PO DAILY 03/17/19 [History] Collagenase Oint [Santyl] 1 appl TP DAILY 03/17/19 [History] Divalproex (24 HR) [Depakote ER (24 HR)] 500 mg PO HS 03/17/19 [History] Empagliflozin [Jardiance] 25 mg PO DAILY 03/17/19 [History] Furosemide [Lasix] 20 mg PO DAILY 03/17/19 [History] Gabapentin [Neurontin] 1,200 mg PO BID 03/17/19 [History] Insulin ASPART [Novolog Flexpen] 2 - 10 unit SQ TIDWM 03/17/19 [History] Insulin Glargine [Lantus] 14 unit SQ Q12H 03/17/19 [History] Lisinopril [Zestril] 20 mg PO DAILY 03/17/19 [History] Meclizine HCl [Verticalm] 25 mg PO TID PRN 03/17/19 [History] Melatonin [Melatin] 6 mg PO HS 03/17/19 [History] Metformin HCl [Glucophage] 1,000 mg PO BID 03/17/19 [History] Sertraline [Zoloft] 150 mg PO DAILY 03/17/19 [History] amLODIPine [Norvasc] 5 mg PO DAILY 03/17/19 [History] Allergy/AdvReac Type Severity Reaction Status Date / Time No Known Allergies Allergy Verified 03/17/19 18:17 - Meds/Allergy Pre-op Review Medications Reviewed: Yes Allergies Reviewed: Yes Beta Blockers on Current Med List: Yes (Carvedilol) If Beta Blockers taken, Date/Time (Last Dose taken): 03/20/2019 @ 1749 Anesthesia Results - Labs 03/20/19 11:04 03/20/19 11:04 Impressions Echocardiogram 03/18/19 15:44 Impressions: Technically sub-optimal due to poor echocardiographic windows. Patient refused to lay in proper position for the study. Patient removed his IV, contrast enhancement could not be administered. Not all LV segments were well visualized. Grossly, overall LV function appears normal. Mild left ventricular diastolic dysfunction. Grossly normal right ventricular structure and function. Unable to estimate RVSP due to lack of TR jet. No obvious significant valvular dysfunction. Findings: Study Quality * Technically sub-optimal due to poor echocardiographic windows. * Patient refused to lay in proper position for the study. * Patient removed his IV, contrast could not be administered. ECG Findings * Normal sinus rhythm. Left Ventricle * Not all LV segments were well visualized. Grossly, overall LV function appears normal. * Mild left ventricular diastolic dysfunction. Right Ventricle * Grossly normal right ventricular structure and function. Left Atrium * Mildly dilated left atrium. Right Atrium * Right atrium is not well visualized. Interatrial Septum * Interatrial septum not well evaluated. Aortic Valve * Aortic valve not well visualized. * No aortic regurgitation. * No aortic stenosis. Mitral Valve * Normal mitral valve structure and function. * No mitral regurgitation. * No mitral stenosis. Tricuspid Valve * Tricuspid valve not well visualized. * No tricuspid regurgitation. * Unable to estimate RVSP due to lack of TR jet. Pulmonic Valve * Pulmonic valve not well visualized. Pericardium * The pericardium appears normal. IVC * Normal IVC dimensions and inspiratory collapse. Pulmonary Artery * Pulmonary artery not well visualized. Laboratory Results 03/20/19 03/20/19 05:53 17:00 POC Glucose 104 H 120 H - Imaging EKG: pending Anesthesia Exam Vital Signs Temp Pulse Resp BP Pulse Ox 03/21/19 00:05 97.9 F 77 20 125/66 93 03/20/19 19:05 98.5 F 83 20 148/56 97 03/20/19 16:54 99.3 F 83 20 146/68 96 03/20/19 11:11 99.1 F 81 20 98/52 98 03/20/19 08:02 98.5 F 81 20 156/71 96 03/20/19 04:44 97.9 F 81 17 134/64 94 Intake and Output 03/20/19 03/20/19 03/21/19 15:59 23:59 07:59 Intake Total 250 / 250 Output Total 400 / 725 125 / 725 Balance -150 / -475 -125 / -475 Intake: IV Fluids Rocephin 1,000 MG In Water for inj. (sterile) 10 ML @ 600 mls/ hr IVP DAILY [facility] Rx#:[id number] Oral 240 / 240 Output: Urine 400 / 725 125 / 725 Other: Meal Breakfast Percent of Meal Consumed 70% Stool Size Copious Stool Consistency soft Stool Color Brown Blood Glucose* 165 120 124 Height: 5'8" Weight: 262# BMI = 40 Anesthesia Assess/Plan ASA Score: 3 (HTN, Chol, CAD, PVDz, [place]/BMI = 40, DM, Peripheral Neuropathy, CHF) Level of consciousness: Cooperative, Oriented, Tranquil Anesthetic Plan: General Monitoring Plan: Standard Monitors Recovery Plan: PACU
[2019-03-21] MEDS: *HR* Heparin 5,000 UNIT/ML VIAL SQ SCH ×2 (05:33→18:49)
[2019-03-21 06:42] LABS: Basophils # 0.1 K/mcL (0.0-0.2); Eosinophils # 0.2 K/mcL (0.0-0.6); Eosinophils % 2.7 %; Hematocrit 35.1 % (37.5-50.1); Hemoglobin 11.9 g/dL (12.9-16.9); Immature Granulocytes % 1.9 % (0-4); Lymphocytes # 1.1 K/mcL (0.6-4.6); Lymphocytes % 18.1 %; Mean Corpuscular HGB Conc 33.9 g/dL (31.6-35.5); Mean Corpuscular Hemoglobin 33.4 pg (28.0-33.3); Mean Corpuscular Volume 98.6 fL (83.0-100.0); Mean Platelet Volume 8.9 fL (9.4-12.4); Monocytes # 0.4 K/mcL (0.0-1.3); Neutrophils # 4.4 K/mcL (1.6-8.9); Platelet Count 100 K/mcL (140-400); Red Blood Count 3.56 M/mcL (4.19-5.50); Red Cell Distribution Width 15.7 % (11.5-14.5); Segmented Neutrophils % 69.3 %
[2019-03-21 07:00] LABS: BUN/Creatinine Ratio 28 (6-26); Blood Urea Nitrogen 27 mg/dL (8-23); Calcium 9.2 mg/dL (8.6-10.3); Carbon Dioxide 26 mEq/L (23-29); Chloride 101 mEq/L (98-107); Glucose 114 mg/dL (70-105); Osmolality,Calculated 292 (280-300); Potassium 4.2 mEq/L (3.5-5.1); Sodium 138 mEq/L (136-145); eGFR For Non-African Americans > 60 (> 60)
[2019-03-21] MEDS: cefTRIAXone 1,000 MG in Water for inj. (sterile) 20 ML 10 ML IVP SCH (10:07)
[2019-03-21] MEDS: Cholecalciferol (D-3) 1,000 UNIT TABLET PO SCH (10:08)
[2019-03-21] MEDS: Lisinopril 20 MG TABLET PO SCH (10:09)
[2019-03-21] MEDS: amLODIPine 5 MG TABLET PO SCH (10:09)
[2019-03-21] MEDS: Aspirin Enteric Coated 81 MG Tablet PO SCH (10:09)
[2019-03-21] MEDS: Gabapentin 400 MG CAPSULE PO SCH ×2 (10:09→20:07)
[2019-03-21] MEDS: Thiamine (B-1) 100 MG TABLET PO SCH (10:09)
[2019-03-21] MEDS: BuPROPion SR (12 HR) 150 MG TABLET PO SCH (10:09)
[2019-03-21] MEDS: Folic Acid 1 MG TABLET PO SCH (10:09)
[2019-03-21] MEDS: Furosemide 20 MG TABLET PO SCH (10:10)
[2019-03-21] MEDS ORDERED: Heparin 1,000 UNITS/500 mL 500 ML ONE (12:27)
[2019-03-21] MEDS ORDERED: ceFAZolin 1,000 MG, Sodium Chloride IRRigation 1,000 ML IR ONE (12:30)
--- NOTE | 2019-03-21 12:46 | Event Note ---
Date of Encounter: 03/21/19 Time of Encounter: 12:45 Patient underwent uneventful weekend. All questions were reviewed prior to surgery. Patient for right lower extremity bypass graft today.
[2019-03-21] MEDS ORDERED: Lidocaine -MPF 4% 5 ML AMPUL ONE (12:58)
[2019-03-21] MEDS ORDERED: *HR* Rocuronium Bromide 50 MG/5 ML VIAL ONE (12:58)
[2019-03-21] MEDS ORDERED: Lidocaine -MPF 2% 2 ML VIAL ONE (12:58)
[2019-03-21] MEDS ORDERED: *HR* FentaNYL (PF) 100 MCG/2 ML VIAL ONE (12:59)
[2019-03-21] MEDS ORDERED: *HR* Propofol 200 MG/20 ML VIAL IVP ONE (12:59)
[2019-03-21] MEDS ORDERED: Heparin 1,000 UNITS/500 mL 1,500 ML ONE (13:02)
[2019-03-21] MEDS ORDERED: Bupivacaine-MPF 0.25% 10 ML VIAL ONE (13:02)
[2019-03-21] MEDS ORDERED: *HR* Heparin 5,000 UNIT/ML VIAL ONE ×2 (13:05→13:06)
[2019-03-21] MEDS ORDERED: Lidocaine -MPF 2% 5 ML VIAL ONE (13:09)
--- NOTE | 2019-03-21 13:59 | Internal Med Progress Note ---
<Grabiel Quinonez - Last Filed: 03/21/19 14:47> Hospitalist Progress Note - Encounter Date of Encounter: 03/21/19 Time of Encounter: 08:51 - Subjective Interval History: She was seen and examined at bedside this morning. He has no complaints today. Coloration appears improved on the right lower extremity. Left lower extremity is currently wrapped. He is scheduled to undergo femoral to popliteal artery bypass today. He is currently NPO. Denies having any urine symptoms. Also denies lower extremity pain. - Exam Vitals: Temp Pulse Resp BP Pulse Ox 98.0 F 79 18 141/82 96 03/21/19 10:51 03/21/19 10:51 03/21/19 10:51 03/21/19 10:51 03/21/19 10:51 Exam: General: conversant, no acute distress Head: atraumatic, normocephalic Eye: PERRL, EOMI, conjuntiva pink, sclera anicteric Neck: Supple, trachea midline; No lymphadenopathy Respiratory: CTAB. No accessory muscle use, wheezes, rales, or rhonchi Cardiovascular: RRR, +S1, +S2; no murmurs, rubs, gallops Abdomen: Soft, nontender Extremities: multiple black eschars present on both beet, left lower extremity is currently wrapped Psychiatric: Normal affect, normal mood Skin: Dry, intact - Assessment and Plan (1) Peripheral vascular disease Current Visit: Yes Status: Chronic Assessment and Plan: - [facility] for concerns of absent pulses in the LLE - Patient is a known history of peripheral vascular disease - On presentation, patients pulse was palpable the left lower extremity - OLEKSANDR performed in ED: 0.73 on the right, 1.46 on the left; abnormal waveforms in the right lower extremity - Per peripheral vascular invasive report: Abdominal aortic normal in appearance and free of obstruction, distal right superficial femoral artery occluded - Right SFA occlusion could not be crossed due to calcification Plan: - Currently NPO - Femoral to popliteal artery bypass surgery later today - Continue to hold Eliquis until procedure is complete (2) Asymptomatic bacteriuria Current Visit: Yes Status: Acute Assessment and Plan: - Urinalysis demonstrated moderately elevated leukocyte esterase and TNTC white blood cells - Per that note on 03/18: Patient had foul-smelling urine noted with a cloudy appearance - Urine culture grew Enterobacter colacae - Rocephin was discontinued, as organism was resistant - Patient has not been symptomatic since admission; denies fever, chills, suprapubic pain, urinary frequency, hesitancy, or urgency - Will not continue antibiotic therapy unless patient develops symptoms (3) Congestive heart failure Current Visit: Yes Status: Chronic Assessment and Plan: - Patient has a known history of congestive heart failure - Monitor intake and output - Daily weights - Continue home medications (4) Diabetes Current Visit: Yes Status: Chronic Assessment and Plan: - Sliding scale insulin - Blood glucose checks (5) Hypertension Current Visit: Yes Status: Acute Assessment and Plan: - Currently well-controlled on amlodipine, carvedilol, lisinopril (6) DVT prophylaxis Current Visit: Yes Status: Acute Assessment and Plan: - Eliquis being held per the recommendations of vascular surgery - Time Spent with Patient Total time spent is greater than 50% in coordination of care (as documented) at patient's floor/unit and/or counseling patient: Internal Medicine: Result - Labs CBC & Chem 7: 03/21/19 06:02 03/21/19 06:02 Labs: Short CBC 03/21/19 Range/Units 06:02 WBC 6.3 (4.3-11.1) K/mcL Hgb 11.9 L (12.9-16.9) g/dL Hct 35.1 L (37.5-50.1) % Plt Count 100 L (140-400) K/mcL Neutrophils # 4.4 (1.6-8.9) K/mcL BMP 03/21/19 06:02 Sodium 138 Potassium 4.2 Chloride 101 Carbon Dioxide 26 BUN 27 H Creatinine 0.98 Glucose 114 H Calcium 9.2 - ABG Interpretation ABG results: PT/INR, D-dimer PT 13.9 Seconds (9.4-12.1) H 03/18/19 04:58 Consult Discharge Plan - Plan Referrals: [facility],PCP [Primary Care Provider] - <Suresh Mo - Last Filed: 03/21/19 16:46> Hospitalist Progress Note - Encounter Date of Encounter: 03/21/19 - Exam Vitals: Temp Pulse Resp BP Pulse Ox 98.0 F 79 18 141/82 96 03/21/19 10:51 03/21/19 10:51 03/21/19 10:51 03/21/19 10:51 03/21/19 10:51 - Assessment and Plan (1) Peripheral vascular disease Current Visit: Yes Status: Chronic (2) Diabetes Current Visit: Yes Status: Chronic (3) Congestive heart failure Current Visit: Yes Status: Chronic (4) DVT prophylaxis Current Visit: Yes Status: Acute (5) Hypertension Current Visit: Yes Status: Acute - Time Spent with Patient Total time spent is greater than 50% in coordination of care (as documented) at patient's floor/unit and/or counseling patient: Internal Medicine: Result - Labs CBC & Chem 7: 03/21/19 06:02 03/21/19 06:02 Labs: Short CBC 03/21/19 Range/Units 06:02 WBC 6.3 (4.3-11.1) K/mcL Hgb 11.9 L (12.9-16.9) g/dL Hct 35.1 L (37.5-50.1) % Plt Count 100 L (140-400) K/mcL Neutrophils # 4.4 (1.6-8.9) K/mcL BMP 03/21/19 06:02 Sodium 138 Potassium 4.2 Chloride 101 Carbon Dioxide 26 BUN 27 H Creatinine 0.98 Glucose 114 H Calcium 9.2 - ABG Interpretation ABG results: PT/INR, D-dimer PT 13.9 Seconds (9.4-12.1) H 03/18/19 04:58 - Attending Attestation I examined this patient and my medical decision-making was reviewed with the Resident Physician. I agree with the documented findings, disposition and treatment plan as described except to the extent set forth below. <Grabiel Quinonez - Last Filed: 03/21/19 14:47> (3) Congestive heart failure Qualifiers: Heart failure type: unspecified Heart failure chronicity: chronic Qualified Code(s): I50.9 - Heart failure, unspecified (4) Diabetes Qualifiers: Diabetes mellitus type: type 2 Diabetes mellitus senior patient account representative insulin use: with senior patient account representative use Diabetes mellitus complication status: with circulatory complication Diabetes mellitus complication detail: with peripheral angiopathy with gangrene Qualified Code(s): E11.52 - Type 2 diabetes mellitus with diabetic peripheral angiopathy with gangrene; Z79.4 - senior living (current) use of insulin (5) Hypertension Qualifiers: Hypertension type: essential hypertension Qualified Code(s): I10 - Essential (primary) hypertension <Suresh Mo - Last Filed: 03/21/19 16:46> (2) Diabetes Qualifiers: Diabetes mellitus type: type 2 Diabetes mellitus senior patient account representative insulin use: with care home use Diabetes mellitus complication status: with circulatory complication Diabetes mellitus complication detail: with peripheral angiopathy with gangrene Qualified Code(s): E11.52 - Type 2 diabetes mellitus with diabetic peripheral angiopathy with gangrene; Z79.4 - senior living (current) use of insulin (3) Congestive heart failure Qualifiers: Heart failure type: unspecified Heart failure chronicity: chronic Qualified Code(s): I50.9 - Heart failure, unspecified (5) Hypertension Qualifiers: Hypertension type: essential hypertension Qualified Code(s): I10 - Essential (primary) hypertension
[2019-03-21] MEDS ORDERED: *HR* PHENYLEPHRINE 1,000 MCG/10 ML SYRINGE IVP ONE (14:07)
[2019-03-21] MEDS ORDERED: Dexamethasone 4 MG/ML VIAL ONE (14:17)
[2019-03-21] MEDS ORDERED: Ondansetron 4 MG/2 ML VIAL ONE (14:17)
[2019-03-21] MEDS ORDERED: ceFAZolin 2,000 MG in Water for inj. (sterile) 20 ML IVP ONE (15:23)
--- NOTE | 2019-03-21 17:58 | Operative Note ---
Date of procedure: 03/21/19 Pre-op diagnosis: PAD/right toe ulcerations Post-op diagnosis: same Procedure: right femoral to AK popliteal bypass graft with 6 mm PTFE Distaflo right common femoral artery endarterectomy right AK popliteal endarterectomy Complications: 0 Anesthesia: GETA Surgeon: Manuel Mott Was there an phys assistant present: No Estimated blood loss (cc): 225 Specimen: 0 Condition: stable Disposition: PACU Procedure in Detail: History Carlyle Canales is a 74-year-old white male that was transferred from the [place] late last week for evaluation of lower extremity ischemia. The original concern was with the left lower extremity. However he was found have palpable pulses there but no palpable pulses at the distal right lower extremity. He also has ulcerations on both the right and left feet. He went on to have an angiogram on Thursday of last week which demonstrated right superficial femoral artery occlusion. This could not be treated via endovascular techniques and now comes to the operating room for revascularization for nonhealing wounds and severe PAD. He was also noted the patient had diffuse calcifications present in his lower extremity vasculature. Procedure The patient was taken to the operating room after informed consent was obtained. General endotracheal anesthesia was established. An arterial line was placed. The right lower extremity was sterilely prepped and draped. A timeout protocol was observed. The operation was begun with an incision in the right groin. Dissection was carried down to the common femoral artery and femoral artery bifurcation. This vessel was remarkably deep. The common femoral artery was very calcified. The profunda femoris artery was relatively small in size. A second incision was then made on the distal medial aspect of the right thigh. Dissection was carried down to the common femoral artery. Again this vessel was significantly calcified as expected by angiographic images. A subsartorial tunnel was then created. Heparin was administered intravenously. A 6 mm PTFE Distaflo the cuff graft was selected. The graft was passed through the subsartorial tunnel. An incision was then made after a three-minute waiting period after the heparin was administered over the distal above-knee popliteal artery. Upon opening the vessel there was dense calcification present. This required an endarterectomy in order to secure an appropriate lumen. A formal endarterectomy was performed. There was a combination of both soft and calcific plaque. There is no thrombus present. After the endarterectomy was performed the distal anastomosis was created in an end-to-side fashion using the 6 mm PTFE graft. This was sewn into position using 2 6-0 Prolene sutures. The graft was unclamped and the [place] vessels were unclamped. Attention was then directed back to the right groin. An arteriotomy was made over the distal common femoral artery with continuance onto the very proximal aspect of the superficial femoral artery. Again as expected a very dense calcific plaque was present. This required an endarterectomy as well to establish an appropriate lumen. The orifice of the profunda femoris artery was endarterectomized as well as the very proximal aspect of the superficial femoral artery. Excellent pulsatile flow was demonstrated from the iliac artery into the common femoral artery. The bed of the vessels and carefully inspected and all residual debris was removed. The proximal anastomosis was then performed of the bypass graft using the 6 mm PTFE. This was relatively long anastomosis due to the area of endarterectomy. A patch was not necessary as the graft itself served appropriately for this function. This was sewn into position using 2 6-0 Prolene sutures. Leaving a small space open on the graft suture line appropriate backbleeding and flushing was performed. After this was accomplished all clamps removed and pulsatile flow was achieved into the right lower extremity via the graft. The incisions were inspected for hemostasis. After this was achieved Marcaine was infiltrated into the wound. The wounds were then closed in layers using absorbable suture. Dry sterile dressings were applied. The patient was extubated in the operating room. He was hemodynamically stable. He was then transported from the operating room to the recovery room in good condition. Doppler signals were identified over the dorsalis pedis and posterior tibial artery at the right ankle.
[2019-03-21] MEDS ORDERED: Ondansetron 4 MG/2 ML VIAL IVP PRN (18:48)
[2019-03-21] MEDS ORDERED: *HR* Dextrose 50 % in Water (Syg) 50 ML SYRINGE IVP PRN (18:48)
[2019-03-21] MEDS ORDERED: *HR* OxyCODONE Immed Rel 5 MG TABLET PO PRN (18:48)
[2019-03-21] MEDS ORDERED: *HR* Labetalol 20 MG/4 ML SYRINGE IVP PRN (18:48)
[2019-03-21] MEDS ORDERED: *HR* HYDROcodone/Acet 5/325 mg TABLET PO PRN (18:48)
[2019-03-21] MEDS ORDERED: Dextrose Gel 15 GM/37.5 ML TUBE PO PRN ×2 (18:48)
[2019-03-21] MEDS ORDERED: Naloxone 0.4 MG/ML INJ IVP PRN ×2 (18:48)
[2019-03-21] MEDS ORDERED: D5% in Water 1,000 ML IVC PRN (18:48)
[2019-03-21] MEDS ORDERED: Acetaminophen 325 MG TABLET PO PRN (18:48)
[2019-03-21] MEDS ORDERED: *HR* LORazepam 2 MG/ML VIAL IVP PRN ×3 (18:48)
[2019-03-21] MEDS: Divalproex (24 HR) 500 MG TABLET PO SCH (20:08)
[2019-03-21] MEDS: Melatonin 3 MG TABLET PO SCH (20:08)
--- NOTE | 2019-03-21 21:04 | Anesthesia Evaluation Post Op ---
Date of Encounter: 03/21/19 Time of Encounter: 18:42 - Vital Signs Vital Signs: Vital Signs/O2 Sat/Glucose, Most Current 03/21/19 19:33 97.7 F 84 16 110/52 93 03/21/19 18:44 98.0 F 84 16 107/67 94 03/21/19 18:34 97.6 F 84 16 119/59 100 03/21/19 18:24 97.6 F 81 16 109/65 100 03/21/19 18:14 97.6 F 80 16 108/62 100 - Lungs Lungs: Clear Ascult./Percussion - Airway Airway: Non-obstructed - Cardiovascular Baseline Rhythm - Mental Status Mental Status: Alert & Oriented, Answers Appropriately - Pain Pain Scale: 0 Pain Scale used: Numeric (1 - 10) - Nausea Vomiting Nausea Vomiting: Not Present - Hydration Hydration: NPO, Sandhu catheter - Discharge PostOp Status: Transfer Patient to floor Anes Supervising Prov Stmt: PT seen/evaluated, VSS And has met criteria for discharge to home. - MD Stephanie
[2019-03-22] MEDS: Insulin LISPRO 300 UNITS/3 ML VIAL SQ SCH ×4 (01:32→17:23)
[2019-03-22] MEDS ORDERED: *HR* Heparin 5,000 UNIT/ML VIAL SQ SCH (06:00)
--- NOTE | 2019-03-22 08:08 | Vascular/Endovas Progress Note ---
Date of Encounter: 03/22/19 Time of Encounter: 08:06 - Assessment and plan (1) Peripheral vascular disease Current Visit: Yes Status: Chronic Patent right lower extremity revascularization. Patient doing well postoperatively. She may be transferred [facility] or discharge to home today from a vascular surgery perspective. Patient to follow-up in the vascular surgery clinic in 2 weeks. (2) Diabetes Current Visit: Yes Status: Chronic Patient has chronic diabetes with diabetic neuropathy and it appears diabetic ulcerations of the feet and toes. Patient will need further follow-up with wound care and/or podiatry for his foot lesions. 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 There is also a telephone conversation with the outside physician who stated that the patient had paroxysm al atrial fibrillation and was on apixiban for that reason. Patient may resume home apixaban today. Qualifiers: Heart failure type: unspecified Heart failure chronicity: chronic Qualified Code(s): I50.9 - Heart failure, unspecified - Subjective Interval history: Patient is postoperative day #1 following right femoral popliteal bypass graft and femoral and popliteal artery endarterectomies. Patient had an uneventful night. Vital Signs, Last 4 Hours Temp Pulse Resp BP Pulse Ox 03/22/19 07:37 97.9 F 93 18 110/21 98 03/22/19 05:12 98.6 F 92 16 104/47 95 - Physical Examination Vascular: Present: Color/Temperature (Right foot is warm and pink. Patient has strong biphasic Doppler signals throughout the right foot and ankle.). Absent: Surgical incisions (Dry dressings over Right lower extremity surgical incisions.) Skin: Present: No rashes noted on visualized skin Results 03/21/19 06:02 03/21/19 06:02 Consult Discharge Plan - Plan Additional Instructions: Keep surgical site dry for total of 5 days following surgery. No lifting greater than 10 pounds. No manual labor. Patient may walk inside or outside. Patient may use stairs as tolerated. Resume usual home medications from a vascular surgery perspective. Referrals: [facility] [Primary Care Provider] - Manuel Mott MD [Partnered Physician] - (Follow-up with Dr. Mott in vascular surgery clinic in 2 weeks.)
[2019-03-22] MEDS: Gabapentin 400 MG CAPSULE PO SCH (08:12)
[2019-03-22] MEDS: Aspirin Enteric Coated 81 MG Tablet PO SCH (08:12)
[2019-03-22] MEDS: Folic Acid 1 MG TABLET PO SCH (08:13)
[2019-03-22] MEDS: Cholecalciferol (D-3) 1,000 UNIT TABLET PO SCH (08:13)
[2019-03-22] MEDS: BuPROPion SR (12 HR) 150 MG TABLET PO SCH (08:13)
[2019-03-22] MEDS: Thiamine (B-1) 100 MG TABLET PO SCH (08:13)
[2019-03-22] MEDS: amLODIPine 5 MG TABLET PO SCH (08:13)
[2019-03-22] MEDS ORDERED: Lisinopril 20 MG TABLET PO SCH (09:00)
[2019-03-22] MEDS ORDERED: Furosemide 20 MG TABLET PO SCH (09:00)
--- NOTE | 2019-03-22 09:21 | Discharge Summary ---
Orders not resulted at time of discharge: Pending orders 03/18/19 03:00 Culture,Urine [RM] Stat 03/18/19 15:44 EKG [ECG 12 lead ECG] [ECG] Routine 03/22/19 07:57 BMP [Basic Metabolic Panel] Stat Complete Blood Count [HEME] Stat Date of Encounter: 03/22/19 Time of Encounter: 09:21 - Discharge Diagnosis (1) Peripheral vascular disease Status: Chronic (2) Asymptomatic bacteriuria Status: Acute (3) Congestive heart failure Status: Chronic Qualifiers: Heart failure type: unspecified Heart failure chronicity: chronic Qualified Code(s): I50.9 - Heart failure, unspecified (4) Diabetes Status: Chronic Qualifiers: Diabetes mellitus type: type 2 Diabetes mellitus intermediate designer insulin use: with intermediate designer use Diabetes mellitus complication status: with circulatory complication Diabetes mellitus complication detail: with peripheral angiopathy with gangrene Qualified Code(s): E11.52 - Type 2 diabetes mellitus with diabetic peripheral angiopathy with gangrene; Z79.4 - nursing home (current) use of insulin (5) Hypertension Status: Acute Qualifiers: Hypertension type: essential hypertension Qualified Code(s): I10 - Essential (primary) hypertension (6) DVT prophylaxis Status: Acute Hospital course: Mr. Canales is a 74 year old male - Time Spent with Patient Total time spent providing and/or coordinating discharge services: - Discharge Medications Prescriptions: No Action Sertraline [Zoloft] 150 mg PO DAILY Metformin HCl [Glucophage] 1,000 mg PO BID amLODIPine [Norvasc] 5 mg PO DAILY Melatonin [Melatin] 6 mg PO HS Meclizine HCl [Verticalm] 25 mg PO TID PRN PRN Reason: Dizziness Divalproex (24 HR) [Depakote ER (24 HR)] 500 mg PO HS Lisinopril [Zestril] 20 mg PO DAILY Insulin Glargine [Lantus] 14 unit SQ Q12H Insulin ASPART [Novolog Flexpen] 2 - 10 unit SQ TIDWM Gabapentin [Neurontin] 1,200 mg PO BID Atorvastatin [Lipitor] 40 mg PO 1700 Furosemide [Lasix] 20 mg PO DAILY Empagliflozin [Jardiance] 25 mg PO DAILY Cholecalciferol (D-3) [Vitamin D] 5,000 unit PO DAILY Collagenase Oint [Santyl] 1 appl TP DAILY Carvedilol [Coreg] 6.25 mg PO BIDWM BuPROPion SR (12 HR) [Wellbutrin SR] 150 mg PO DAILY Aspirin [Adult Aspirin] 81 mg PO DAILY Apixaban [Eliquis] 5 mg PO BID Home Medications: Apixaban [Eliquis] 5 mg PO BID 03/17/19 [History] Aspirin [Adult Aspirin] 81 mg PO DAILY 03/17/19 [History] Atorvastatin [Lipitor] 40 mg PO 1700 03/17/19 [History] BuPROPion SR (12 HR) [Wellbutrin SR] 150 mg PO DAILY 03/17/19 [History] Carvedilol [Coreg] 6.25 mg PO BIDWM 03/17/19 [History] Cholecalciferol (D-3) [Vitamin D] 5,000 unit PO DAILY 03/17/19 [History] Collagenase Oint [Santyl] 1 appl TP DAILY 03/17/19 [History] Divalproex (24 HR) [Depakote ER (24 HR)] 500 mg PO HS 03/17/19 [History] Empagliflozin [Jardiance] 25 mg PO DAILY 03/17/19 [History] Furosemide [Lasix] 20 mg PO DAILY 03/17/19 [History] Gabapentin [Neurontin] 1,200 mg PO BID 03/17/19 [History] Insulin ASPART [Novolog Flexpen] 2 - 10 unit SQ TIDWM 03/17/19 [History] Insulin Glargine [Lantus] 14 unit SQ Q12H 03/17/19 [History] Lisinopril [Zestril] 20 mg PO DAILY 03/17/19 [History] Meclizine HCl [Verticalm] 25 mg PO TID PRN 03/17/19 [History] Melatonin [Melatin] 6 mg PO HS 03/17/19 [History] Metformin HCl [Glucophage] 1,000 mg PO BID 03/17/19 [History] Sertraline [Zoloft] 150 mg PO DAILY 03/17/19 [History] amLODIPine [Norvasc] 5 mg PO DAILY 03/17/19 [History] Allergies/Adverse Reactions: Allergy/AdvReac Type Severity Reaction Status Date / Time No Known Allergies Allergy Verified 03/17/19 18:17 Date of admission: 03/21/19 16:46 [facility]: [facility] Consults: 03/17/19 22:57 Consult to Vascular Surgery [CONS] Routine Consulting Provider: Vascular Surgery Thu Reason for Consult: Right lower extremity cool with absent palpable pulses. History of peripheral vascular disease. Call Completed: Yes 03/18/19 04:32 Consult to Wound Care [CONS] Routine Reason for Consult: LE lesions of the feet Call Completed: No 03/18/19 12:28 Consult to Nurse Navigator [CONS] Routine Comment: chf Consult to Airplane Technician [CONS] Routine Reason for SW Consult: [facility] 03/21/19 18:48 Consult to Physical Therapy [CONS] Routine Comment: Evaluate, develop and implement POC Reason for Consult: s/p right fem-pop bypass graft/toe and foot lesions Does patient have active BEDREST order?: No Is patient medically & hemodynamically stable?: Yes Patient assessed for mobility or mobilized this visit?: No - Constitutional Vitals: Temp Pulse Resp BP Pulse Ox 97.9 F 93 18 95/55 98 03/22/19 07:37 03/22/19 07:37 03/22/19 07:37 03/22/19 08:40 03/22/19 07:37 - Patient Status Condition: Fair - Discharge Instructions Follow Up With: [facility] [Primary Care Provider] - Manuel Mott MD [Partnered Physician] - (Follow-up with Dr. Mott in vascular surgery clinic in 2 weeks.) Additional Instructions: Keep surgical site dry for total of 5 days following surgery. No lifting greater than 10 pounds. No manual labor. Patient may walk inside or outside. Patient may use stairs as tolerated. Resume usual home medications from a vascular surgery perspective.
[2019-03-22 10:29] LABS: Potassium 5.3 mEq/L (3.5-5.1)
[2019-03-22 10:39] LABS: Basophils # 0.1 K/mcL (0.0-0.2); Basophils % 0.6 %; Eosinophils % 0.3 %; Hematocrit 30.2 % (37.5-50.1); Hemoglobin 10.1 g/dL (12.9-16.9); Immature Granulocytes % 2.3 % (0-4); Lymphocytes # 1.2 K/mcL (0.6-4.6); Lymphocytes % 8.2 %; Mean Corpuscular HGB Conc 33.4 g/dL (31.6-35.5); Mean Corpuscular Hemoglobin 34.1 pg (28.0-33.3); Mean Platelet Volume 9.2 fL (9.4-12.4); Monocytes # 1.2 K/mcL (0.0-1.3); Monocytes % 8.5 %; Neutrophils # 11.6 K/mcL (1.6-8.9); Nucleated Red Blood Cells 0.3 /100 WBC (0); Platelet Count 156 K/mcL (140-400); Red Blood Count 2.96 M/mcL (4.19-5.50); Red Cell Distribution Width 16.6 % (11.5-14.5); Segmented Neutrophils % 80.1 %
[2019-03-22 11:04] LABS: Platelet Estimate Normal (Normal)
[2019-03-22] MEDS: Apixaban 5 MG TABLET PO SCH ×2 (11:37→23:13)
[2019-03-22] MEDS ORDERED: 0.9 % Sodium Chloride 500 ML IVC ONE (14:27)
[2019-03-22] MEDS ORDERED: Potassium Chloride 40 MEQ, Lidocaine 1% 2 ML in D5% in Water 500 ML IVPB ONE (14:27)
--- NOTE | 2019-03-22 15:15 | Internal Med Progress Note ---
<Grabiel Quinonez - Last Filed: 03/22/19 16:07> Hospitalist Progress Note - Encounter Date of Encounter: 03/22/19 Time of Encounter: 09:35 - Subjective Interval History: Patient was seen and examined at bedside; he is nonverbal today. He is not cooperative with the exam. According to his nurse, he had a full conversation with vascular surgeon this morning. According to her, patient is very selective about his answers and which questions he is willing to answer. Intentional movements are noted when attempting to examine patient. He is otherwise refusing to answer questions. Patient ripped his IV out early this morning. St at labs were ordered; demonstrated acute kidney injury. Unknown etiology; possibly contrast-induced. We will initiate full a cat workup. We will also begin treatment of the bacteria in his urine. Lactate is ordered and is currently pending. - Exam Vitals: Temp Pulse Resp BP Pulse Ox 98.5 F 85 18 107/47 94 03/22/19 12:22 03/22/19 12:22 03/22/19 12:22 03/22/19 12:22 03/22/19 12:22 Exam: General: Non-conversant, noncooperative with exam; intentional movements observed Head: atraumatic, normocephalic Eye: Unable to assess; patient will not open eyes for exam Respiratory: No rales, wheezing, or rhonchi appreciated in the anterior solitario; patient will not lean forward for remainder of respiratory exam Cardiovascular: RRR, +S1, +S2; no murmurs, rubs, gallops Abdomen: Unable to assess Extremities: multiple black eschars present on both feet, left lower extremity is currently wrapped Psychiatric: Patient refuses to answer questions; occasionally responds with one word answers; unable to assess mental status Skin: Black eschar present on feet bilaterally - Assessment and Plan (1) Acute kidney injury Current Visit: Yes Status: Acute Assessment and Plan: - Unknown etiology at this time; possibly contrast-induced - Patient did receive IV contrast during his procedure - Creatinine has increased from 0.98-2.45 Patient noted yesterday that he had not urinated Plan: - Will order urine studies: Urine sodium, urine creatinine, urine eosinophils, creatinine kinase - Gentle IV fluid hydration - Lisinopril, Lasix being held - Retroperitoneal ultrasound (2) UTI (urinary tract infection) Current Visit: Yes Status: Acute Assessment and Plan: - Secondary to Enterobacter cloacae - Sensitive to fluoroquinolones, Bactrim, aminoglycosides - Will start ciprofloxacin 400 mg IV every 12 (3) Metabolic acidosis Current Visit: Yes Status: Acute Assessment and Plan: - Unknown etiology; possibly secondary to acute kidney injury - Lactate pending (4) Peripheral vascular disease Current Visit: Yes Status: Chronic Assessment and Plan: - [facility] presented [facility] for concerns of absent pulses in the LLE - Patient is a known history of peripheral vascular disease - On presentation, patients pulse was palpable the left lower extremity - Patient is postop day 1 of right lower extremity revascularization Plan: - Resume Eliquis - Patient tolerated procedure well - Per the recommendations of vascular surgery, patient may be transferred back to [place] or discharged home from vascular standpoint (5) Diabetes Current Visit: Yes Status: Chronic Assessment and Plan: - Sliding scale insulin - Blood glucose checks (6) Hypertension Current Visit: Yes Status: Acute Assessment and Plan: - Currently well-controlled on amlodipine, carvedilol - Lisinopril being held due to HUNTER (7) DVT prophylaxis Current Visit: Yes Status: Acute Assessment and Plan: - Eliquis - Time Spent with Patient Total time spent is greater than 50% in coordination of care (as documented) at patient's floor/unit and/or counseling patient: Internal Medicine: Result - Labs CBC & Chem 7: 03/22/19 10:23 03/22/19 09:17 Labs: Short CBC 03/22/19 Range/Units 10:23 WBC 14.5 H D (4.3-11.1) K/mcL Hgb 10.1 L D (12.9-16.9) g/dL Hct 30.2 L (37.5-50.1) % Plt Count 156 D (140-400) K/mcL Neutrophils # 11.6 H (1.6-8.9) K/mcL BMP 03/22/19 09:17 Sodium 136 Potassium 5.3 H Chloride 105 Carbon Dioxide 15 L BUN 48 H Creatinine 2.45 H Glucose 165 H Calcium 8.0 L - ABG Interpretation ABG results: PT/INR, D-dimer PT 13.9 Seconds (9.4-12.1) H 03/18/19 04:58 Consult Discharge Plan - Plan Additional Instructions: Keep surgical site dry for total of 5 days following surgery. No lifting greater than 10 pounds. No manual labor. Patient may walk inside or outside. Patient may use stairs as tolerated. Resume usual home medications from a vascular surgery perspective. Referrals: [facility],PCP [Primary Care Provider] - Manuel Mott MD [Partnered Physician] - (Follow-up with Dr. Mott in vascular surgery clinic in 2 weeks.) <Suresh Mo - Last Filed: 03/22/19 17:44> Hospitalist Progress Note - Encounter Date of Encounter: 03/22/19 - Exam Vitals: Temp Pulse Resp BP Pulse Ox 98.3 F 86 16 100/42 93 03/22/19 16:18 03/22/19 16:18 03/22/19 16:18 03/22/19 16:18 03/22/19 16:18 - Assessment and Plan (1) Peripheral vascular disease Current Visit: Yes Status: Chronic (2) Diabetes Current Visit: Yes Status: Chronic (3) Congestive heart failure Current Visit: Yes Status: Chronic (4) DVT prophylaxis Current Visit: Yes Status: Acute (5) Hypertension Current Visit: Yes Status: Acute - Time Spent with Patient Total time spent is greater than 50% in coordination of care (as documented) at patient's floor/unit and/or counseling patient: Internal Medicine: Result - Labs CBC & Chem 7: 03/22/19 10:23 03/22/19 09:17 Labs: Short CBC 03/22/19 Range/Units 10:23 WBC 14.5 H D (4.3-11.1) K/mcL Hgb 10.1 L D (12.9-16.9) g/dL Hct 30.2 L (37.5-50.1) % Plt Count 156 D (140-400) K/mcL Neutrophils # 11.6 H (1.6-8.9) K/mcL BMP 03/22/19 09:17 Sodium 136 Potassium 5.3 H Chloride 105 Carbon Dioxide 15 L BUN 48 H Creatinine 2.45 H Glucose 165 H Calcium 8.0 L - ABG Interpretation ABG results: PT/INR, D-dimer PT 13.9 Seconds (9.4-12.1) H 03/18/19 04:58 - Attending Attestation I examined this patient and my medical decision-making was reviewed with the Resident Physician. I agree with the documented findings, disposition and treatment plan as described except to the extent set forth below. __ <Grabiel Quinonez - Last Filed: 03/22/19 16:07> (5) Diabetes Qualifiers: Diabetes mellitus type: type 2 Diabetes mellitus retirement insulin use: with molding technician use Diabetes mellitus complication status: with circulatory compli cation Diabetes mellitus complication detail: with peripheral angiopathy with gangrene Qualified Code(s): E11.52 - Type 2 diabetes mellitus with diabetic peripheral angiopathy with gangrene; Z79.4 - crank hand (current) use of insulin (6) Hypertension Qualifiers: Hypertension type: essential hypertension Qualified Code(s): I10 - Essential (primary) hypertension <Suresh Mo - Last Filed: 03/22/19 17:44> (2) Diabetes Qualifiers: Diabetes mellitus type: type 2 Diabetes mellitus retirement insulin use: with molding technician use Diabetes mellitus complication status: with circulatory complica tion Diabetes mellitus complication detail: with peripheral angiopathy with gangrene Qualified Code(s): E11.52 - Type 2 diabetes mellitus with diabetic peripheral angiopathy with gangrene; Z79.4 - half-way (current) use of insulin (3) Congestive heart failure Qualifiers: Heart failure type: unspecified Heart failure chronicity: chronic Qualified Code(s): I50.9 - Heart failure, unspecified (5) Hypertension Qualifiers: Hypertension type: essential hypertension Qualified Code(s): I10 - Essential (primary) hypertension
[2019-03-22] MEDS ORDERED: 0.9 % Sodium Chloride 1,000 ML IVC SCH (16:15)
--- NOTE | 2019-03-22 18:35 | Electrocardiograph Report ---
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
[2019-03-22 22:29] LABS: Calcium 7.8 mg/dL (8.6-10.3); Potassium 5.1 mEq/L (3.5-5.1)
[2019-03-22] MEDS: Divalproex (24 HR) 500 MG TABLET PO SCH (23:13)
[2019-03-22] MEDS: Melatonin 3 MG TABLET PO SCH (23:14)
[2019-03-23] MEDS: Insulin LISPRO 300 UNITS/3 ML VIAL SQ SCH ×4 (00:42→18:04)
[2019-03-23] MEDS ORDERED: 0.9 % Sodium Chloride 500 ML IVC ONE (01:01)
[2019-03-23] MEDS ORDERED: 0.9 % Sodium Chloride 500 ML ONE (01:25)
--- NOTE | 2019-03-23 01:25 | Event Note ---
Date of Encounter: 03/23/19 Time of Encounter: 01:53 Alerted by RN overnight that the pt leg was much more swollen than it was before, increased redness and tenderness and that pt is more lethargic. Pt had a >1pt drop in hgb from previous, although he is post-op. STAT ABG ordered. Type and screen, H&H q6hr pending. Creatinine increased from 2.45 to 3.55 500 cc bolus of 0.9% NS ordered Pt foot is extremeley painful, tight on exam. Strength is decreased, sensation decreased. Pulses hardly palpable but heard with doppler. Paged Dr Rollins, vascular surgery on-call, at 01:[address] LE, abd/pelvis. Both ordered STAT. Will update below when scans are complete. Update [id number]: Dr Rollins recommended duplex US to r/o DVT. OK to d/c CT scans. He increased fluids to 100cc/hr. Hemoglobin 9.1, continue to trend. ABG WNL. Creatinine does continue to increase, urine studies pending. No acute changes or concerns.
[2019-03-23 01:47] LABS: Hematocrit 27.8 % (37.5-50.1); Hemoglobin 9.1 g/dL (12.9-16.9)
[2019-03-23 02:08] LABS: Calcium 8.2 mg/dL (8.6-10.3); Potassium 5.4 mEq/L (3.5-5.1)
[2019-03-23 02:12] LABS: ABG Base Excess -6 mEq/L (-2 to 3); ABG HCO3 20 mEq/L (21-27); ABG Oxygen Saturation 96 % (95-98); ABG PCO2 36 mmHg (35-45); ABG PH 7.34 pH Units (7.32-7.45); ABG PO2 89 mmHg (85-104); ABG TCO2 21 mEq/L (20-26)
--- NOTE | 2019-03-23 03:44 | Event Note ---
Date of Encounter: 03/23/19 Time of Encounter: 03:00 Called regarding patient experiencing right lower extremity pain and swelling postoperatively. The patient was seen and examined. The patient is somnolent but arousable. He responds appropriately to questions and follows commands as directed. He currently denies any pain in the right lower extremity. There is no evidence of hematoma at the proximal or distal incisions. The leg compartments are soft. The patient's motor and sensory exam are intact. There is no evidence of compartment syndrome. He has polyphasic dorsalis pedis and posterior tibial signals by Doppler. His CT scan may be canceled. He does have 1+ edema in the right lower extremity. A venous duplex will be ordered to evaluate for possible deep vein thrombosis. It is also noted that the patient has a rising creatinine. He likely has acute kidney injury due to postoperative blood loss anemia and dehydration. He has received a 500 mL bolus of normal saline. His intravenous fluids will be increased to 100 mL per hour. Recommend placement of Sandhu catheter. Repeat creatinine this morning. Recommend consultation with Nephrology. The patient was discussed with the hospitalist service.
[2019-03-23 04:36] LABS: Sodium, Urine 18.4 mEq/L
[2019-03-23] MEDS: 0.9 % Sodium Chloride 1,000 ML IVC SCH ×2 (05:26→18:03)
[2019-03-23 06:54] LABS: Basophils % 0.4 %; Eosinophils # 0.1 K/mcL (0.0-0.6); Eosinophils % 0.8 %; Hematocrit 26.9 % (37.5-50.1); Hemoglobin 8.7 g/dL (12.9-16.9); Immature Granulocytes % 1.8 % (0-4); Lymphocytes # 1.2 K/mcL (0.6-4.6); Mean Corpuscular HGB Conc 32.3 g/dL (31.6-35.5); Mean Corpuscular Hemoglobin 33.6 pg (28.0-33.3); Mean Corpuscular Volume 103.9 fL (83.0-100.0); Monocytes % 9.6 %; Neutrophils # 7.8 K/mcL (1.6-8.9); Platelet Count 121 K/mcL (140-400); Red Blood Count 2.59 M/mcL (4.19-5.50); Red Cell Distribution Width 17.1 % (11.5-14.5); Segmented Neutrophils % 75.4 %
--- NOTE | 2019-03-23 08:26 | Internal Med Progress Note ---
<Dina Guadarrama - Last Filed: 03/23/19 11:52> Hospitalist Progress Note - Encounter Date of Encounter: 03/23/19 - Exam Vitals: Temp Pulse Resp BP Pulse Ox 99.1 F 98 18 124/64 92 03/23/19 11:42 03/23/19 11:42 03/23/19 11:42 03/23/19 11:42 03/23/19 11:42 - Assessment and Plan (1) Peripheral vascular disease Current Visit: Yes Status: Chronic (2) Diabetes Current Visit: Yes Status: Chronic (3) Congestive heart failure Current Visit: Yes Status: Chronic (4) DVT prophylaxis Current Visit: Yes Status: Acute (5) Hypertension Current Visit: Yes Status: Acute - Time Spent with Patient Total time spent is greater than 50% in coordination of care (as documented) at patient's floor/unit and/or counseling patient: Internal Medicine: Result - Labs CBC & Chem 7: 03/23/19 06:22 03/23/19 01:29 Labs: Short CBC 03/23/19 03/23/19 Range/Units 01:29 06:22 WBC 10.3 (4.3-11.1) K/mcL Hgb 9.1 L 8.7 L (12.9-16.9) g/dL Hct 27.8 L 26.9 L (37.5-50.1) % Plt Count 121 L (140-400) K/mcL Neutrophils # 7.8 (1.6-8.9) K/mcL BMP 03/22/19 03/23/19 21:53 01:29 Sodium 136 137 Potassium 5.1 5.4 H Chloride 104 102 Carbon Dioxide 19 L 20 L BUN 60 H 66 H Creatinine 3.55 H 3.77 H Glucose 196 H 179 H Calcium 7.8 L 8.2 L - ABG Interpretation ABG results: ABG ABG pH 7.34 pH Units (7.32-7.45) 03/23/19 02:08 ABG pCO2 36 mmHg (35-45) 03/23/19 02:08 ABG pO2 89 mmHg (85-104) 03/23/19 02:08 ABG O2 Saturation 96 % (95-98) 03/23/19 02:08 PT/INR, D-dimer PT 13.9 Seconds (9.4-12.1) H 03/18/19 04:58 - Impressions Impressions Retroperitoneum Ultrasound 03/22/19 21:00 IMPRESSION: Cyst within the left kidney that may contain debris. Unremarkable sonographic evaluation of the right kidney and urinary bladder. D/ / Elvis Morris / Evlis Morris Interpreting Provider: Elvis Morris Chest X-Ray 03/23/19 09:03 IMPRESSION: No acute abnormality. D/ / Michel Bowers MD / Michel Bowers MD Interpreting Provider: Michel Bowers MD Consult Discharge Plan - Plan Additional Instructions: Keep surgical site dry for total of 5 days following surgery. No lifting greater than 10 pounds. No manual labor. Patient may walk inside or outside. Patient may use stairs as tolerated. Resume usual home medications from a vascular surgery perspective. [facility]errals: [facility]Primary Care Provider[facility] - Manuel Mott MD [Partnered Physician] - (Follow-up with Dr. Mott in vascular surgery clinic in 2 weeks.) - Attending Attestation I examined this patient and my medical decision-making was reviewed with the Resident Physician Dr Quinonez. I agree with the documented findings, disposition and treatment plan as described except to the extent set forth below. Mr Canales is admitted with PVD requiring surgical intervention and has developed post op blood loss anemia and acute renal failure. RN at bedside. no family present. Pt sitting upright in bed snoring, does open eyes to name, falls back asleep. difficulty maintaining attention but follows simple commands. admits to pain in leg, no pain in chest no sob. On 4L NC ove rnight? dayshift RN has weaned to room air with normal O2 sats. gen- somnolent, appears stated age eyes- pupils equal round , no conjunctival pallor cv- reg rate and rhythm, normal s1,s2, no le pitting edema, warm bl le lungs- ctabl, no wheezing, rhonchi or crackles, normal resp effort on room air abd- soft, no apparent tenderness, no guarding or grimace to palpation + bs neuro- somnolent, follows commands to open eyes for exam, nods hed yes/no to questions, CN grossly intact and no focal deficits can be appreciated skin- no increased warmth or erythema RLE, toes onthat foot with small black eschars, no drainage PVD s/p right fem-pop bypass 03/21 -Dr Rollins following, RLE US pending today, prn pain control -will require vasc surg follow up within 2 weeks of dc and podiatry/wound clinic follow up for foot wounds Post Operative blood loss anemia Hemodynamically stable -monitor hgb on his home AC, may need to consider stopping if cont hgb drop Acute Renal Failure Hyperkalemia UTI -consulted nephrology, cont IVFs, holding nephrotoxins, renal US reviewed and unremarkable -will get EKG, give kayexalate, repeat K level this afternoon -cont cipro, as d/w pharmacy prior cxs with carbapenem resistance, has contacted lab to run addl sensitivities and is pending Encephalopathy likely combination metabolic with renal failure and infectious with UTI per staff who has treated him this week, improving -cont tx as above -bedside nursing swallow eval prior to feeding today further diagnoses and plan as documented by resident <Grabiel Quinonez - Last Filed: 03/23/19 15:22> Hospitalist Progress Note - Encounter Date of Encounter: 03/23/19 Time of Encounter: 08:25 - Subjective Interval History: Patient was seen and examined at bedside; he is still somnolent, but he answers more questions today. He is able to give short, one word answers. He is producing more urine today, but creatinine is still elevated. He denies fever, chills, or abdominal pain. Per overnight event note: Patients leg became much more swollen than before, with increased redness and tenderness. Patient also had a greater than 1. drop in hemoglobin. Dr. Rollins was paged; ordered duplex ultrasound to rule out DVT; per event note from vascular: No evidence of hematoma at approximately distal incisions. Leg compartment soft. No evidence of compartment syndrome. Sandhu catheter placed. We will consult nephrology for worsening acute kidney injury. - Exam Vitals: Temp Pulse Resp BP Pulse Ox 99.1 F 96 20 116/67 95 03/23/19 07:11 03/23/19 07:11 03/23/19 07:11 03/23/19 07:11 03/23/19 07:11 Exam: General: Somnolent; no acute distress Head: atraumatic, normocephalic Eye: Unable to assess; patient will not open eyes for exam Respiratory: Diminished breath sounds bilaterally; No rales, wheezing, or rhonchi Cardiovascular: RRR, +S1, +S2; no murmurs, rubs, gallops Abdomen: Soft, nontender Extremities: multiple black eschars present on both feet, left lower extremity is currently wrapped Psychiatric: Somnolent; gives minimal responses to questions Skin: Black eschar present on feet bilaterally - Assessment and Plan (1) Acute kidney injury Current Visit: Yes Status: Acute Assessment and Plan: - Unknown etiology at this time; possibly contrast-induced - Patient did receive IV contrast during his procedure - Creatinine has increased from 3.55-3.77 - White count has decreased from 14.5-10.3 - Urine creatinine was 163, urine sodium was 18.4, urine eosinophils were negative. Creatinine kinase was 55. - CrCl: 0.3%; prerenal picture; of note, patient did receive IV contrast for his procedure - Currently on IV fluids at 100 mL per hour - Retroperitoneal U/S demonstrated: Cyst within the left kidney that may contain debris; otherwise unremarkable Plan: - Will consult nephrology - Latest medications, avoid nephrotoxic agents of possible - Strict intake and output; continue gentle IV fluid hydration with normal saline (2) UTI (urinary tract infection) Current Visit: Yes Status: Acute Assessment and Plan: - Secondary to Enterobacter cloacae - Sensitive to fluoroquinolones, Bactrim, aminoglycosides - Ciprofloxacin 400 mg IV every 12; day 2 of antibiotics (3) Anemia Current Visit: Yes Status: Acute Assessment and Plan: Patient's hemoglobin has dropped to 8.4 from 10.1 - Unknown etiology at this time; possibly post-op vs dilutional - No acute bleeding source is suspected at this time - Surgical site is intact; no active bleeding Plan: - Repeat H/H this afternoon; will transfuse if necessary (4) Metabolic acidosis Current Visit: Yes Status: Acute Assessment and Plan: - Unknown etiology; possibly secondary to acute kidney injury - Plan as above (5) Peripheral vascular disease Current Visit: Yes Status: Chronic Assessment and Plan: - Initially presented after [facility] for concerns of absent pulses in the LLE - Patient is a known history of peripheral vascular disease - On presentation, patients pulse was palpable the left lower extremity - Patient is postop day 3 of right lower extremity revascularization - Vascular surgery is following; patient will need followup in the outpatient setting in 2 weeks, as well as followup with podiatry and wound clinic (6) Diabetes Current Visit: Yes Status: Chronic Assessment and Plan: - Sliding scale insulin - Blood glucose checks (7) Hypertension Current Visit: Yes Status: Acute Assessment and Plan: - Currently well-controlled on amlodipine, carvedilol - Lisinopril being held due to HUNTER (8) DVT prophylaxis Current Visit: Yes Status: Acute Assessment and Plan: - Eliquis - Time Spent with Patient Total time spent is greater than 50% in coordination of care (as documented) at patient's floor/unit and/or counseling patient: Internal Medicine: Result - Labs CBC & Chem 7: 03/23/19 11:38 03/23/19 01:29 Labs: Short CBC 03/22/19 03/23/19 03/23/19 Range/Units 10:23 01:29 06:22 WBC 14.5 H D 10.3 (4.3-11.1) K/mcL Hgb 10.1 L D 9.1 L 8.7 L (12.9-16.9) g/dL Hct 30.2 L 27.8 L 26.9 L (37.5-50.1) % Plt Count 156 D 121 L (140-400) K/mcL Neutrophils # 11.6 H 7.8 (1.6-8.9) K/mcL BMP 03/22/19 03/22/19 03/23/19 09:17 21:53 01:29 Sodium 136 136 137 Potassium 5.3 H 5.1 5.4 H Chloride 105 104 102 Carbon Dioxide 15 L 19 L 20 L BUN 48 H 60 H 66 H Creatinine 2.45 H 3.55 H 3.77 H Glucose 165 H 196 H 179 H Calcium 8.0 L 7.8 L 8.2 L - ABG Interpretation ABG results: ABG ABG pH 7.34 pH Units (7.32-7.45) 03/23/19 02:08 ABG pCO2 36 mmHg (35-45) 03/23/19 02:08 ABG pO2 89 mmHg (85-104) 03/23/19 02:08 ABG O2 Saturation 96 % (95-98) 03/23/19 02:08 PT/INR, D-dimer PT 13.9 Seconds (9.4-12.1) H 03/18/19 04:58 - Impressions Impressions Retroperitoneum Ultrasound 03/22/19 21:00 IMPRESSION: Cyst within the left kidney that may contain debris. Unremarkable sonographic evaluation of the right kidney and urinary bladder. 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 Diabetes mellitus complication status: with circulatory complication Diabetes mellitus complication detail: with peripheral angiopathy with gangrene Qualified Code(s): E11.52 - Type 2 diabetes mellitus with diabetic peripheral angiopathy with gangrene; Z79.4 - long-term (current) use of insulin (3) Congestive heart failure Qualifiers: Heart failure type: unspecified Heart failure chronicity: chronic Qualified Code(s): I50.9 - Heart failure, unspecified (5) Hypertension Qualifiers: Hypertension type: essential hypertension Qualified Code(s): I10 - Essential (primary) hypertension <Grabiel Quinonez - Last Filed: 03/23/19 15:22> (6) Diabetes Qualifiers: Diabetes mellitus type: type 2 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
[2019-03-23] MEDS: amLODIPine 5 MG TABLET PO SCH (10:14)
[2019-03-23] MEDS: Thiamine (B-1) 100 MG TABLET PO SCH (10:14)
[2019-03-23] MEDS: Cholecalciferol (D-3) 1,000 UNIT TABLET PO SCH (10:14)
[2019-03-23] MEDS: BuPROPion SR (12 HR) 150 MG TABLET PO SCH (10:14)
[2019-03-23] MEDS: Apixaban 5 MG TABLET PO SCH ×2 (10:15→20:28)
[2019-03-23] MEDS: Aspirin Enteric Coated 81 MG Tablet PO SCH (10:15)
[2019-03-23] MEDS: Folic Acid 1 MG TABLET PO SCH (10:15)
--- NOTE | 2019-03-23 10:25 | Electrocardiograph Report ---
[place] [id number] Test Date: 2019-03-22 Pat Name: Carlyle Canales Department: 112 Room: [place] Gender: M Nursing Specialist: : [id number] Requested By: Jackson Jewell Order Number: [id number] Reading MD: Arturo León Measurements Intervals [place] Rate: 91 P: 21 CO: 160 QRS: 34 QRSD: 85 T: 43 QT: 368 QTc: 416 Interpretive Statements SINUS RHYTHM MINIMAL ST DEPRESSION Electronically Signed On 03-23-2019 10:24:24 EDT by Arturo León
[2019-03-23 12:01] LABS: Hematocrit 25.9 % (37.5-50.1); Hemoglobin 8.4 g/dL (12.9-16.9)
--- NOTE | 2019-03-23 13:13 | Vascular/[facility] Progress Note ---
Date of Encounter: 03/23/19 Time of Encounter: 13:11 - Assessment and plan (1) Peripheral vascular disease Current Visit: Yes Status: Chronic Patent right lower extremity revascularization. Dramatic improvement of perfusion to right lower extremity following bypass surgery. New issue is acute kidney injury. This is most likely multifactorial including the use of contrast this past Thursday for his angiogram and the anesthetic from his operation on . No contrast was administered at the time of his operation on Thursday. (2) Diabetes Current Visit: Yes Status: Chronic Patient has chronic diabetes with diabetic neuropathy and it appears diabetic ulcerations of the feet and toes. Patient will need further follow-up with wound care and/or podiatry for his foot lesions. 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 There is also a telephone conversation with the outside physician who stated that the patient had paroxysmal atrial fibrillation and was on apixiban for that reason. Patient may resume home apixaban today. Qualifiers: Heart failure type: unspecified Heart failure chronicity: chronic Quali fied Code(s): I50.9 - Heart failure, unspecified - Subjective Interval history: Patient is postoperative day #2 following right femoral popliteal bypass graft and femoral and popliteal artery endarterectomies. Renal function has further deteriorated by biochemical monitoring. In addition the patient's mental status is more clouded and somnolent. Vital Signs, Last 4 Hours Temp Pulse Resp BP Pulse Ox 03/23/19 11:42 99.1 F 98 18 124/64 92 - Physical Examination HEENT: Present: Atraumatic Neuro: Present: Other (Decreased sensorium. Patient is more somnolent though he does arouse to both verbal and tactile stimulation. Patient does move all 4 extremities on command.) Vascular: Present: Edema (No significant edema is present.), Color/Temperature (Right foot is warm and pink. The patient has ecchymosis in the left groin from his angiogram this past Thursday. He also has ecchymosis on the posterior aspect of the right thigh from the attempted crossing of the right superficial femoral artery occlusion. These are chronic and stable.), Surgical incisions (Right lower extremity surgical incisions are clean and dry.) Results 03/23/19 11:38 03/23/19 01:29 Lab Results, Last 24 hours 03/22/19 03/23/19 03/23/19 21:53 01:29 01:29 WBC Hgb 9.1 L Hct 27.8 L Plt Count Sodium 136 137 Potassium 5.1 5.4 H Chloride 104 102 Carbon Dioxide 19 L 20 L BUN 60 H 66 H Creatinine 3.55 H 3.77 H Glucose 196 H 179 H Calcium 7.8 L 8.2 L 03/23/19 03/23/19 06:22 11:38 WBC 10.3 Hgb 8.7 L 8.4 L Hct 26.9 L 25.9 L Plt Count 121 L Sodium Potassium Chloride Carbon Dioxide BUN Creatinine Glucose Calcium Consult Discharge Plan - Plan Additional Instructions: Keep surgical site dry for total of 5 days following surgery. No lifting greater than 10 pounds. No manual labor. Patient may walk inside or outside. Patient may use stairs as tolerated. Resume usual home medications from a vascular surgery perspective. [facility]errals: [facility] [Primary Care Provider] - Manuel Mott MD [Partnered Physician] - (Follow-up with Dr. Mott in vascular surgery clinic in 2 weeks.)
[2019-03-23] MEDS ORDERED: Perflutren Lipid Microsphere 1.3 ML in 0.9 % Sodium Chloride 8.7 ML IVP ONE (14:33)
[2019-03-23] MEDS ORDERED: Perflutren Lipid Microsphere 2 ML VIAL ONE (14:34)
[2019-03-23] MEDS: Divalproex (24 HR) 500 MG TABLET PO SCH (20:30)
[2019-03-23] MEDS: Melatonin 3 MG TABLET PO SCH (20:30)
[2019-03-24] MEDS: 0.9 % Sodium Chloride 1,000 ML IVC SCH ×2 (01:34→05:07)
[2019-03-24] MEDS: Insulin LISPRO 300 UNITS/3 ML VIAL SQ SCH ×5 (02:00→23:20)
[2019-03-24 07:11] LABS: Basophils % 0.3 %; Hemoglobin 7.6 g/dL (12.9-16.9)
[2019-03-24 07:13] LABS: Eosinophils # 0.1 K/mcL (0.0-0.6); Eosinophils % 0.8 %; Hematocrit 23.1 % (37.5-50.1); Immature Granulocytes % 1.7 % (0-4); Immature Platelets 1.1 % (1.1-6.1); Lymphocytes # 0.7 K/mcL (0.6-4.6); Lymphocytes % 11.4 %; Mean Corpuscular HGB Conc 32.9 g/dL (31.6-35.5); Mean Corpuscular Hemoglobin 34.2 pg (28.0-33.3); Mean Corpuscular Volume 104.1 fL (83.0-100.0); Mean Platelet Volume 9.5 fL (9.4-12.4); Monocytes # 0.6 K/mcL (0.0-1.3); Neutrophils # 4.9 K/mcL (1.6-8.9); Platelet Count 110 K/mcL (140-400); Red Blood Count 2.22 M/mcL (4.19-5.50); Red Cell Distribution Width 17.1 % (11.5-14.5); Segmented Neutrophils % 75.8 %
[2019-03-24 08:19] LABS: Calcium 8.3 mg/dL (8.6-10.3); Potassium 4.2 mEq/L (3.5-5.1)
--- NOTE | 2019-03-24 08:20 | Internal Med Progress Note ---
<Grabiel Quinonez - Last Filed: 03/24/19 14:48> Hospitalist Progress Note - Encounter Date of Encounter: 03/24/19 Time of Encounter: 08:20 - Subjective Interval History: Patient was seen and examined at bedside. He is able to answer questions today, and appears less lethargic than yesterday. He has been able to eat without difficulty, and urine output is improving. Creatinine has slightly improved. Nephrology is consulted and will see patient later today. 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 Of note, his hemoglobin has decreased significantly since his operation. Hb this morning is 7.6. He also has ecchymosis present in his left groin area. Will hold his eliquis, transfuse with one unit of pRBCs with a goal Hb of >8. Hill recheck H/H later this afternoon. - Exam Vitals: Temp Pulse Resp BP Pulse Ox 97.9 F 90 20 120/65 93 03/24/19 07:09 03/24/19 07:09 03/24/19 07:09 03/24/19 07:09 03/24/19 07:09 Exam: General: conversant; mental status improved, no acute distress Head: atraumatic, normocephalic Eye: PERRL, EOMI, conjuntiva pink, sclera anicteric Neck: Supple, trachea midline; No lymphadenopathy Respiratory: CTAB. No accessory muscle use, wheezes, rales, or rhonchi Cardiovascular: RRR, +S1, +S2; no murmurs, rubs, gallops Abdomen: Soft, nontender Extremities: Weak pulses in b/l Les, L>R; black discolorations on both feet; may represent dry gangrene Psychiatric: Normal affect, normal mood Skin: ecchymosis present in groin, L>R; surgical site intact with no signs of bleeding - Assessment and Plan (1) Acute kidney injury Current Visit: Yes Status: Acute Assessment and Plan: - Unknown etiology at this time; possibly contrast-induced - Patient did receive IV contrast during his procedure - Creatinine is improving, but is still elevated at 3.18 - Urine creatinine was 163, urine sodium was 18.4, urine eosinophils were negative. Creatinine kinase was 55. - CrCl: 0.3%; prerenal picture; of note, patient did receive IV contrast for his procedure - Currently on IV fluids at 100 mL per hour - Retroperitoneal U/S demonstrated: Cyst within the left kidney that may contain debris; otherwise unremarkable Plan: - Nephrology consulted; would appreciate any further recommendations - Avoid nephrotoxic agents if possible - Strict intake and output; continue gentle IV fluid hydration with normal saline (2) Postoperative anemia Current Visit: Yes Status: Acute Assessment and Plan: - Patient has had a drop in his hemoglobin after his procedure - Last Hb was 7.6 - On physical exam, he has ecchymosis present in his groin area Plan: - 1U pRBCs ordered with a goal H/H of >8 - Repeat H/H ordered for 5 pm (3) UTI (urinary tract infection) Current Visit: Yes Status: Acute Assessment and Plan: - Secondary to Enterobacter cloacae - Sensitive to fluoroquinolones, Bactrim, aminoglycosides - Ciprofloxacin 400 mg IV every 12 - ID is following; would appreciate any further recommendations (4) Metabolic acidosis Current Visit: Yes Status: Acute (5) Peripheral vascular disease Current Visit: Yes Status: Chronic Assessment and Plan: - [facility] for concerns of absent pulses in the LLE - Patient is a known history of peripheral vascular disease - On presentation, patients pulse was palpable the left lower extremity - Patient is postop day 4 of right lower extremity revascularization (6) Diabetes Current Visit: Yes Status: Chronic Assessment and Plan: - Sliding scale insulin - Blood glucose checks (7) Hypertension Current Visit: Yes Status: Acute Assessment and Plan: - Currently well-controlled on amlodipine, carvedilol - Lisinopril being held due to HUNTER (8) DVT prophylaxis Current Visit: Yes Status: Acute Assessment and Plan: - Eliquis being held due to acute anemia - Time Spent with Patient Total time spent is greater than 50% in coordination of care (as documented) at patient's floor/unit and/or counseling patient: Internal Medicine: Result - Labs CBC & Chem 7: 03/24/19 11:40 03/24/19 06:34 Labs: Short CBC 03/23/19 03/24/19 Range/Units 11:38 06:34 WBC 6.4 (4.3-11.1) K/mcL Hgb 8.4 L 7.6 L (12.9-16.9) g/dL Hct 25.9 L 23.1 L (37.5-50.1) % Plt Count 110 L (140-400) K/mcL Neutrophils # 4.9 (1.6-8.9) K/mcL BMP 03/23/19 03/24/19 15:42 06:34 Sodium 143 Potassium 4.6 4.2 Chloride 108 H Carbon Dioxide 23 BUN 79 H Creatinine 3.18 H Glucose 213 H Calcium 8.3 L - ABG Interpretation ABG results: ABG ABG pH 7.34 pH Units (7.32-7.45) 03/23/19 02:08 ABG pCO2 36 mmHg (35-45) 03/23/19 02:08 ABG pO2 89 mmHg (85-104) 03/23/19 02:08 ABG O2 Saturation 96 % (95-98) 03/23/19 02:08 PT/INR, D-dimer PT 13.9 Seconds (9.4-12.1) H 03/18/19 04:58 - Impressions Impressions Chest X-Ray 03/23/19 09:03 IMPRESSION: No acute abnormality. D/ / Michel Bowers MD / Michel Bowers MD Interpreting Provider: Michel Bowers MD Echocardiogram 03/23/19 09:15 Impressions: Technically sub-optimal due to poor echocardiographic windows. LVEF 65%. Normal LV chamber size, wall thickness and function. Mild left ventricular diastolic dysfunction. Grossly, the right ventricle appears mildly dilated. Function is normal. Mild aortic regurgitation. Unable to estimate RVSP due to lack of TR jet. Left Ventricular Wall Motion: Rest Echo Findings All wall segments showed normal motion. Findings: Study Quality * Technically sub-optimal due to poor echocardiographic windows. ECG Findings * Normal sinus rhythm. Left Ventricle * LVEF 65%. * Normal LV chamber size, wall thickness and function. * Mild left ventricular diastolic dysfunction. Right Ventricle * Grossly, the right ventricle appears mildly dilated. Function is normal. Left Atrium * Moderately dilated left atrium. Right Atrium * Mildly dilated right atrium. Interatrial Septum * Interatrial septum not well evaluated. Aortic Valve * Aortic valve not well visualized. * Grossly, mildly calcified aortic valve leaflets. * Grossly, mild aortic regurgitation. * No aortic stenosis. Mitral Valve * Normal mitral valve structure and function. * No mitral regurgitation. * No mitral stenosis. Tricuspid Valve * Tricuspid valve not well visualized. * No tricuspid regurgitation. * Unable to estimate RVSP due to lack of TR jet. Pulmonic Valve * Pulmonic valve not well visualized. Aorta * Normally sized aortic root. Pericardium * The pericardium appears normal. IVC * Normal IVC dimensions and inspiratory collapse. Pulmonary Artery * Pulmonary artery not well visualized. Consult Discharge Plan - Plan Additional Instructions: Keep surgical sites dry for total of 5 days following surgery. No lifting greater than 10 pounds. No manual labor. Patient may walk inside or outside. Patient may use stairs as tolerated. Resume usual home medications from a vascular surgery perspective. Follow-up in vascular surgery clinic in 2 weeks after discharge. Referrals: [facility] [Primary Care Provider] - Manuel Mott MD [Partnered Physician] - (Follow-up with Dr. Mott in vascular surgery clinic in 2 weeks after discharge.) <Dina Guadarrama - Last Filed: 03/24/19 18:19> Hospitalist Progress Note - Encounter Date of Encounter: 03/24/19 - Exam Vitals: Temp Pulse Resp BP Pulse Ox 99.1 F 85 20 129/60 96 03/24/19 11:39 03/24/19 11:39 03/24/19 11:39 03/24/19 11:39 03/24/19 11:39 - Assessment and Plan (1) Peripheral vascular disease Current Visit: Yes Status: Chronic (2) Diabetes Current Visit: Yes Status: Chronic (3) Congestive heart failure Current Visit: Yes Status: Chronic (4) DVT prophylaxis Current Visit: Yes Status: Acute (5) Hypertension Current Visit: Yes Status: Acute - Time Spent with Patient Total time spent is greater than 50% in coordination of care (as documented) at patient's floor/unit and/or counseling patient: Internal Medicine: Result - Labs CBC & Chem 7: 03/24/19 16:01 03/24/19 06:34 Labs: Short CBC 03/24/19 03/24/19 Range/Units 06:34 11:40 WBC 6.4 (4.3-11.1) K/mcL Hgb 7.6 L 7.4 L (12.9-16.9) g/dL Hct 23.1 L 22.8 L (37.5-50.1) % Plt Count 110 L (140-400) K/mcL Neutrophils # 4.9 (1.6-8.9) K/mcL BMP 03/23/19 03/24/19 15:42 06:34 Sodium 143 Potassium 4.6 4.2 Chloride 108 H Carbon Dioxide 23 BUN 79 H Creatinine 3.18 H Glucose 213 H Calcium 8.3 L - ABG Interpretation ABG results: ABG ABG pH 7.34 pH Units (7.32-7.45) 03/23/19 02:08 ABG pCO2 36 mmHg (35-45) 03/23/19 02:08 ABG pO2 89 mmHg (85-104) 03/23/19 02:08 ABG O2 Saturation 96 % (95-98) 03/23/19 02:08 PT/INR, D-dimer PT 13.9 Seconds (9.4-12.1) H 03/18/19 04:58 - Impressions Impressions Echocardiogram 03/23/19 09:15 Impressions: Technically sub-optimal due to poor echocardiographic windows. LVEF 65%. Normal LV chamber size, wall thickness and function. Mild left ventricular diastolic dysfunction. Grossly, the right ventricle appears mildly dilated. Function is normal. Mild aortic regurgitation. Unable to estimate RVSP due to lack of TR jet. Left Ventricular Wall Motion: Rest Echo Findings All wall segments showed normal motion. Findings: Study Quality * Technically sub-optimal due to poor echocardiographic windows. ECG Findings * Normal sinus rhythm. Left Ventricle * LVEF 65%. * Normal LV chamber size, wall thickness and function. * Mild left ventricular diastolic dysfunction. Right Ventricle * Grossly, the right ventricle appears mildly dilated. Function is normal. Left Atrium * Moderately dilated left atrium. Right Atrium * Mildly dilated right atrium. Interatrial Septum * Interatrial septum not well evaluated. Aortic Valve * Aortic valve not well visualized. * Grossly, mildly calcified aortic valve leaflets. * Grossly, mild aortic regurgitation. * No aortic stenosis. Mitral Valve * Normal mitral valve structure and function. * No mitral regurgitation. * No mitral stenosis. Tricuspid Valve * Tricuspid valve not well visualized. * No tricuspid regurgitation. * Unable to estimate RVSP due to lack of TR jet. Pulmonic Valve * Pulmonic valve not well visualized. Aorta * Normally sized aortic root. Pericardium * The pericardium appears normal. IVC * Normal IVC dimensions and inspiratory collapse. Pulmonary Artery * Pulmonary artery not well visualized. - Attending Attestation I examined this patient and my medical decision-making was reviewed with the Resident Physician Dr Quinonez. I agree with the documented findings, disposition and treatment plan as described except to the extent set forth below. Mr Canales is admitted with PVD requiring surgical intervention and has developed post op blood loss anemia and acute renal failure and encephalopathy no family present. Pt sleeping when call his name he opens eyes and turns head in my direction. non verbal. does nod head yes/no and able to stay awake today. denies pain, sob. gen- awake, alert appears stated age eyes- pupils equal round , + conjunctival pallor cv- reg rate and rhythm, normal s1,s2, no le pitting edema, warm bl le lungs- ctabl, no wheezing, rhonchi or crackles, normal resp effort on room air abd- soft, no apparent tenderness, no guarding or grimace to palpation + bs neuro- awake, nods hed yes/no to questions, CN grossly intact and no focal de ficits can be appreciated, no tremor skin- + pallor, bl groin ecchymosis far greater left groin, no palpable hematoma present , healing right groin incision without bleeding PVD s/p right fem-pop bypass 03/21 -Dr Rollins following, RLE US no dvt -will require vasc surg follow up within 2 weeks of dc and podiatry/wound clinic follow up for foot wounds Post Operative blood loss anemia Hemodynamically stable -worsened hgb to mid 7s, stop home ASA, transufse unit prbc and serial h/hs -suspect this is coming from significant ecchymosis on groin (left, minimal on right), cannot appreciate hematoma on examination but given size there could be, right femoral access site looks good with minimal ecchymosis and no hematoma, would get non contrast ct given his kidney function however suspect he does have a hematoma and 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 exchange 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, if hgb does not stabilize or he becomes hemodynamically unstable at that time a contrast CTA to assess for active bleeding would be appropriate and would need nephro assistance as this surely would worsen his renal function, possibly to point of dialysis need Acute Kidney injury Hyperkalemia, resolved UTI -nephro now following, cont IVFs, holding nephrotoxins -cont cipro, as d/w pharmacy prior cxs with carbapenem resistance, ID following for addl abx recs Encephalopathy likely combination metabolic with renal failure and infectious with UTI per staff who has treated him this week, improving daily -cont tx as above -nephro following Low depakote level- on extensive review of chart he has no seizure hx but does have mood d/o hx on mulitple mood stabilizing agents, i attempted to call his son whom did not answer to see if he is aware of seizure hx but no answer -discussed with pharmacist, if for mood d/o no dose change required, if for seizures, it would need adjusted, bt given mental status and poor renal funciton the risk of adjustment would outweigh the benefit -we have added prn ativan for seizure and seizure precautions empirically while getting addl info, cont neuro checks further diagnoses and plan as documented by resident <Grabiel Quinonez - Last Filed: 03/24/19 14:48> (3) UTI (urinary tract infection) Qualifiers: Urinary tract infection type: site unspecified Hematuria presence: with hematuria Qualified Code(s): N39.0 - Urinary tract infection, site not specified; R31.9 - Hematuria, unspecified (6) Diabetes Qualifiers: Diabetes mellitus type: type 2 Diabetes mellitus moth exterminator insulin use: with moth exterminator use Diabetes mellitus complication status: with circulatory complication Diabetes mellitus complication detail: with peripheral angiopathy with gangrene Qualified Code(s): E11.52 - Type 2 diabetes mellitus with diabetic peripheral angiopathy with gangrene; Z79.4 - long term (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 <Dina Guadarrama - Last Filed: 03/24/19 18:19> (2) Diabetes Qualifiers: Diabetes mellitus type: type 2 Diabetes mellitus moth exterminator insulin use: with penitentiary use Diabetes mellitus complication status: with circulatory complication Diabetes mellitus complication detail: with peripheral angiopathy with gangrene Qualified Code(s): E11.52 - Type 2 diabetes mellitus with diabetic peripheral angiopathy with gangrene; Z79.4 - long-term (current) use of insulin (3) Congestive heart failure Qualifiers: Heart failure type: unspecified Heart failure chronicity: chronic Qualified Code(s): I50.9 - Heart failure, unspecified (5) Hypertension Qualifiers: Hypertension type: essential hypertension Qualified Code(s): I10 - Essential (primary) hypertension
[2019-03-24] MEDS: Folic Acid 1 MG TABLET PO SCH (08:30)
[2019-03-24] MEDS: BuPROPion SR (12 HR) 150 MG TABLET PO SCH (08:30)
[2019-03-24] MEDS: Aspirin Enteric Coated 81 MG Tablet PO SCH (08:39)
[2019-03-24] MEDS: Cholecalciferol (D-3) 1,000 UNIT TABLET PO SCH (08:39)
[2019-03-24] MEDS: Thiamine (B-1) 100 MG TABLET PO SCH (08:40)
[2019-03-24] MEDS: amLODIPine 5 MG TABLET PO SCH (08:40)
--- NOTE | 2019-03-24 10:10 | Nephrology Consult Note ---
Date of Encounter: 03/24/19 Time of Encounter: 10:07 Assessment and Plan (1) Acute kidney injury Current Visit: Yes Status: Acute Scr 3.18, GFR 19-some improvement from yesterday UOP 350ml yesterday; already today patient has 550ml UOP Suspect contrast-induced HUNTER Continue gental IV fluids Continue to hold Lisinopril and Lasix Retroperitoneal ultrasound done Urine studies done Avoid nephrotoxins if possible (2) UTI (urinary tract infection) Current Visit: Yes Status: Acute per primary team Qualifiers: Urinary tract infection type: site unspecified Hematuria presence: with hematuria Qualified Code(s): N39.0 - Urinary tract infection, site not specified; R31.9 - Hematuria, unspecified (3) Peripheral vascular disease Current Visit: Yes Status: Chronic per surgical team History of Present Illness - Reason for Consult Consult date: 03/24/19 - Chief Complaint HUNTER, PVD - History of Present Illness Mr. Canales is a 74 year old male with a past medical history of peripheral vascular disease, hypertension, CHF and diabetes [facility] due to concern absent pulses in the left lower extremity. He had a right femoral to poplital artery bypass done. Now has developed HUNTER. Past Med Surg Social Fam HX - Past Medical History Medical history: CHF, COPD, diabetes Psychiatric history: no psych history - Social History Smoking Status: Former smoker Smokeless Tobacco Status: No Alcohol use: occasionally Drug use: none Medications and Allergies Apixaban [Eliquis] 5 mg PO BID 03/17/19 [History] Aspirin [Adult Aspirin] 81 mg PO DAILY 03/17/19 [History] Atorvastatin [Lipitor] 40 mg PO 1700 03/17/19 [History] BuPROPion SR (12 HR) [Wellbutrin SR] 150 mg PO DAILY 03/17/19 [History] Carvedilol [Coreg] 6.25 mg PO BIDWM 03/17/19 [History] Cholecalciferol (D-3) [Vitamin D] 5,000 unit PO DAILY 03/17/19 [History] Collagenase Oint [Santyl] 1 appl TP DAILY 03/17/19 [History] Divalproex (24 HR) [Depakote ER (24 HR)] 500 mg PO HS 03/17/19 [History] Empagliflozin [Jardiance] 25 mg PO DAILY 03/17/19 [History] Furosemide [Lasix] 20 mg PO DAILY 03/17/19 [History] Gabapentin [Neurontin] 1,200 mg PO BID 03/17/19 [History] Insulin ASPART [Novolog Flexpen] 2 - 10 unit SQ TIDWM 03/17/19 [History] Insulin Glargine [Lantus] 14 unit SQ Q12H 03/17/19 [History] Lisinopril [Zestril] 20 mg PO DAILY 03/17/19 [History] Meclizine HCl [Verticalm] 25 mg PO TID PRN 03/17/19 [History] Melatonin [Melatin] 6 mg PO HS 03/17/19 [History] Metformin HCl [Glucophage] 1,000 mg PO BID 03/17/19 [History] Sertraline [Zoloft] 150 mg PO DAILY 03/17/19 [History] amLODIPine [Norvasc] 5 mg PO DAILY 03/17/19 [History] Allergy/AdvReac Type Severity Reaction Status Date / Time No Known Allergies Allergy Verified 03/17/19 18:17 Review of Systems All Systems: reviewed and no additional remarkable complaints except as stated Constitutional: no chills Cardiovascular: pedal edema, no chest pain Integumentary: swelling Exam - Vital Signs Vital signs: Initial Vital Signs Temp Pulse Resp BP Pulse Ox 98.9 F 81 18 139/85 96 03/17/19 18:12 03/17/19 18:12 03/17/19 18:12 03/17/19 18:12 03/17/19 18:12 Vital Signs - Last 8 Hours Temp Pulse Resp BP Pulse Ox 03/24/19 07:09 97.9 F 90 20 120/65 93 03/24/19 04:35 99.0 F 91 17 143/72 94 Intake and Output 03/23/19 03/24/19 03/24/19 23:59 07:59 15:59 Intake Total 0 / 1500 1000 / 6040 5040 / 6040 Output Total 400 / 400 Balance 0 / 1150 600 / 5640 5040 / 5640 Intake: IV Fluids 1000 / 1000 0.9 % Sodium Chloride 1,000 ML 1000 / 1000 @ 100 mls/hr IVC .Q10H [facility] Rx#: [id number] Oral 0 / 0 5040 / 5040 Output: Catheter 400 / 400 Other: Meal Dinner Breakfast Percent of Meal Consumed 0% 25% Blood Glucose* 292 233 - General Appearance General appearance: well-developed, well-nourished EENT: ATNC, mucous membranes moist, hearing intact, vision intact Neck: supple Respiratory: clear Cardiology: edema, normal S1, normal S2 Gastrointestinal: no tenderness, no guarding Integumentary: warm and dry Neurologic: confused Psychiatric: cooperative Results - Lab Results 03/24/19 06:34 03/24/19 06:34 Most recent lab results 03/24/19 06:34 Calcium 8.3 L Consult Discharge Plan - Plan Additional Instructions: Keep surgical site dry for total of 5 days following surgery. No lifting greater than 10 pounds. No manual labor. Patient may walk inside or outside. Patient may use stairs as tolerated. Resume usual home medications from a vascular surgery perspective. Referrals: [facility] [Primary Care Provider] - Manuel Mott MD [Partnered Physician] - (Follow-up with Dr. Mott in vascular surgery clinic in 2 weeks.)
--- NOTE | 2019-03-24 11:03 | Infectious Disease Consult ---
Infectious Disease-Consult - Encounter Date/Time Date of Encounter: 03/24/19 Time of Encounter: 10:57 - Data of Consult Patient: new to practice Reason for consult: MDR UTI Consult date: 03/24/19 Requesting Physician: Dina Guadarrama Primary Care Provider: PCP [place] - [facility] HPI: Mr. Canales is a 74-year-old male with a past medical history of PVD, neuropathy, diabetes, CHF, and hypertension. The patient was admitted to the hospital 03/17/19 or PVD. We are consulted 03/24/19 for further workup and treatment recommendations for MDR UTI. Briefly, Mr. Canales is a 74-year-old male with past medical history as stated above. The patient was evaluated by his scratcher at the [facility] on the day of admission and there was concern that the patient had a pulseless right foot. He was referred to our emergency department for evaluation by vascular surgery. Upon arrival, the patient was afebrile hemodynamically stable. His laboratory studies revealed a normal white blood cell count with a mildly elevated serum creatinine of 1.31. He had bilateral OLEKSANDR studies that showed normal waveforms in the left lower extremity mildly diminished waveforms in the right lower extremity. He was admitted to the hospital for further evaluation and treatment. Shortly after admission, he was evaluated by vascular surgery recommended an angiogram that revealed a distal right SFA occlusion. He developed some confus ion and a urine culture was obtained that grew out Enterobacter. Due to the patient being asymptomatic, treatment was not initiated as his confusion appeared to have resolved. On 03/21/19, he was taken to the operating room where he underwent a right femoral to AK popliteal bypass graft, right common femoral artery endarterectomy, and right AK popliteal endarterectomy. Postop, he developed an acute kidney injury and leukocytosis. He was noted to have increased swelling and diminished pulses in the right lower extremity. He had a DVT study that was negative. Chest x-ray showed no acute process. Lactic acid was normal. He was started on antibiotics for his urinary tract infection due to concerns that he was more lethargic and having some altered mental status. Currently, the patient is on IV Cipro. We have been asked to evaluate and make further recommendations. During my exam today, the patient is somewhat resistant to my exam. He states he won't tell me his name because "he doesn't want to." I advised him that I need to know what is going on so that we can help him and he became a little more compliant. He tells me he was at the [facility] because something was wrong with his right leg, but he is unable to tell me exactly the reason. He denies any fevers, chills, or rigors. Denies chest pain, shortness of breath, or cough, but patient witnessed choking after taking a drink of water. States he chokes often when drinking, but nursing tells me she has not witnessed this. Denies nausea, vomiting, or diarrhea. Complains of bilateral flank pain. Denies abdominal pain. States he was having dysuria prior to coming to the hospital, but unsure how good of a historian he truly is. Currently varela catheter is patent. Per nursing mental status improved markedly today from yesterday. The patient lives at home with his son. States he smokes 2 packs of cigarettes per day and drinks 6 beers daily. Denies drug use. - ROS Review of Systems: All systems reviewed and no additional remarkable complaints except as stated. - Results CBC & Chem 7: 03/24/19 16:01 03/24/19 06:34 - Exam Vitals: Temp Pulse Resp BP Pulse Ox 97.9 F 90 20 120/65 93 03/24/19 07:09 03/24/19 07:09 03/24/19 07:09 03/24/19 07:09 03/24/19 07:09 Exam: Head: Atraumatic, normal inspection, normocephalic. Eye: EOMI, PERRLA, no scleral icterus noted. ENT: Mucous membranes moist. No odontogenic infection noted. Neck: Normal inspection, no meningismus. Respiratory: Clear to auscultation. No rales, respiratory distress, rhonchi, or wheezes noted. Cardiovascular: Regular rate and rhythm, S1 and S2 audible. No murmurs, rubs, or gallops. GI: Soft, nondistended, normal bowel sounds. Extremities:No joint swelling or tenderness noted. 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 No erythema, warmth, or drainage noted. Left groin angiogram site ROLLING ATTENDANT without erythema. Mild ecchymosis noted. Left foot dressing C/D/I. Superficial scabbed lesions noted to the right toes without evidence of infection. Back: Normal inspection. No vertebral tenderness noted. Bilateral CVAT noted. Neurological: Alert, oriented 2, no focal deficits. Slow to answer questions. Psychiatric: flat affect, normal mood. Skin: Dry, intact, warm. Normal color. No rashes. Apixaban [Eliquis] 5 mg PO BID 03/17/19 [History] Aspirin [Adult Aspirin] 81 mg PO DAILY 03/17/19 [History] Atorvastatin [Lipitor] 40 mg PO 1700 03/17/19 [History] BuPROPion SR (12 HR) [Wellbutrin SR] 150 mg PO DAILY 03/17/19 [History] Carvedilol [Coreg] 6.25 mg PO BIDWM 03/17/19 [History] Cholecalciferol (D-3) [Vitamin D] 5,000 unit PO DAILY 03/17/19 [History] Collagenase Oint [Santyl] 1 appl TP DAILY 03/17/19 [History] Divalproex (24 HR) [Depakote ER (24 HR)] 500 mg PO HS 03/17/19 [History] Empagliflozin [Jardiance] 25 mg PO DAILY 03/17/19 [History] Furosemide [Lasix] 20 mg PO DAILY 03/17/19 [History] Gabapentin [Neurontin] 1,200 mg PO BID 03/17/19 [History] Insulin ASPART [Novolog Flexpen] 2 - 10 unit SQ TIDWM 03/17/19 [History] Insulin Glargine [Lantus] 14 unit SQ Q12H 03/17/19 [History] Lisinopril [Zestril] 20 mg PO DAILY 03/17/19 [History] Meclizine HCl [Verticalm] 25 mg PO TID PRN 03/17/19 [History] Melatonin [Melatin] 6 mg PO HS 03/17/19 [History] Metformin HCl [Glucophage] 1,000 mg PO BID 03/17/19 [History] Sertraline [Zoloft] 150 mg PO DAILY 03/17/19 [History] amLODIPine [Norvasc] 5 mg PO DAILY 03/17/19 [History] Allergy/AdvReac Type Severity Reaction Status Date / Time No Known Allergies Allergy Verified 03/17/19 18:17 - Assessment and Plan (1) UTI (urinary tract infection) Current Visit: Yes Status: Acute Asymptomatic bacteriuria versus true infection. Causative organism: Enterobacter cloacae. (R: carbapenems, but negative for CRE) Currently has a varela catheter, but did not have one when urine was collected. Bilateral CVAT noted. Currently on IV cipro. Qualifiers: Urinary tract infection type: site unspecified Hematuria presence: with hematuria Qualified Code(s): N39.0 - Urinary tract infection, site not specified; R31.9 - Hematuria, unspecified SNOMED Code(s): 95926524 (2) Peripheral vascular disease Current Visit: Yes Status: Chronic Bilateral OLEKSANDR studies shows moderate disease in the RLE and no disease on the LLE. Vascular surgery consulted. Status post angiogram 03/18/19 that showed distal right SFA occlusion. Status post right femoral AK popliteal bypass graft, right common femoral artery endarterectomy, and right AK popliteal endarterectomy 03/21/19. Management per the vascular surgery team. SNOMED Code(s): 356542120 (3) Acute kidney injury Current Visit: Yes Status: Acute Likely multifactorial: contrast-induced and possible hypoperfusion intra-op. RP UTS negative. Improved. Nephrology consulted. Monitor renal function and dose-adjust medications. Avoid nephrotoxins as able. SNOMED Code(s): 08296144, 89301138 (4) Anemia Current Visit: Yes Status: Acute Qualifiers: Anemia type: unspecified type Qualified Code(s): D64.9 - Anemia, unspecified SNOMED Code(s): 416506296 (5) Alcohol use Current Visit: Yes Status: Acute CIWA protocol discontinued. SNOMED Code(s): 813537 (6) Diabetes Current Visit: Yes Status: Chronic Qualifiers: Diabetes mellitus type: type 2 Diabetes mellitus salvage determiner insulin use: with longterm use Diabetes mellitus complication status: with circulatory complication Diabetes mellitus complication detail: with peripheral angiopathy with gangrene Qualified Code(s): E11.52 - Type 2 diabetes mellitus with diabetic peripheral angiopathy with gangrene; Z79.4 - USP (current) use of insulin SNOMED Code(s): 79190790 (7) Hypertension Current Visit: Yes Status: Acute Qualifiers: Hypertension type: essential hypertension Qualified Code(s): I10 - Essential (primary) hypertension SNOMED Code(s): 48622106 (8) Congestive heart failure Current Visit: Yes Status: Chronic Qualifiers: Heart failure type: unspecified Heart failure chronicity: chronic Qualified Code(s): I50.9 - Heart failure, unspecified SNOMED Code(s): 70368903 - Recommendations Recommendations: Contact precautions per protocol. Get CT of the abdomen and pelvis. Continue cipro 400mg IV Q12H. Duration of treatment depends on the clinical picture. Monitor renal function and dose-adjust antibiotics. Past Med Surg Social Fam HX - Past Medical History Attestation: Yes The following information was validated with the patient. Source: patient, old records reviewed, nursing notes reviewed Medical history: CHF, COPD, diabetes Psychiatric history: no psych history - Social History Smoking Status: Current every day smoker Packs per day: 2 Smokeless Tobacco Status: No Alcohol use: heavy (6 beers daily) Drug use: none Occupational status: retired Current living situation: Home, With Family Activity Level: Uses cane/walker Recent Out of Country Travel Within the Last 8 Weeks: No Exposure or Possible Exposure to Illness During Travel: No Consult Discharge Plan - Plan Additional Instructions: Keep surgical sites dry for total of 5 days following surgery. No lifting greater than 10 pounds. No manual labor. Patient may walk inside or outside. Patient may use stairs as tolerated. Resume usual home medications from a vascular surgery perspective. Follow-up in vascular surgery clinic in 2 weeks after discharge. [facility]errals: [facility] [Primary Care Provider] - Manuel Mott MD [Partnered Physician] - (Follow-up with Dr. Mott in vascular surgery clinic in 2 weeks after discharge.) - Attending Attestation I have personally performed a face to face evaluation on this patient. I have reviewed and agree with the care plan. History and Exam by me shows: Patient seen and examined agree with above history of present illness, review of system and physical exam. Assessment and plan Urinary tract infection with multidrug resistant organisms including Enterobacter cloacae R: ertapenem yet susceptible to meropenem? NO CRE Peripheral vascular disease status post angiogram 03/18/2019 with a right femoral popliteal bypass graft, right common femoral artery endarterectomy and right AK popliteal endarterectomy 03/21/2019 Acute kidney injury EtOH abuse Recommendations doing great on cipro continue cipro for now Duration of treatment depends on the CT findings
[2019-03-24] MEDS ORDERED: *HR* LORazepam 2 MG/ML VIAL IVP PRN (12:07)
[2019-03-24 12:15] LABS: Hematocrit 22.8 % (37.5-50.1); Hemoglobin 7.4 g/dL (12.9-16.9)
--- NOTE | 2019-03-24 14:34 | Vascular/End[facility]as Progress Note ---
Date of Encounter: 03/24/19 Time of Encounter: 09:00 - Assessment and plan (1) Peripheral vascular disease Current Visit: Yes Status: Chronic Patent right lower extremity revascularization. Dramatic improvement of perfusion to right lower extremity following bypass surgery. New issue is acute kidney injury. This is most likely multifactorial including the use of contrast this past Thursday for his angiogram and the anesthetic from his operation on . No contrast was administered at the time of his operation on Thursday. Renal function has plateaued. Urinary output has improved. Right lower extremity bypass graft and endarterectomy is patent with marked improvement of right lower extremity perfusion. Once patient is cleared from medical and renal standpoint he may be transferred per primary service. Follow-up in vascular surgery clinic in 2 weeks after discharge. (2) Diabetes Current Visit: Yes Status: Chronic Patient has chronic diabetes with diabetic neuropathy and it appears diabetic ulcerations of the feet and toes. Patient will need further follow-up with wound care and/or podiatry for his foot lesions. 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 There is also a telephone conversation with the outside physician who stated that the patient had paroxysmal atrial fibrillation and was on apixiban for that reason. Patient may resume home apixaban from vascular surgery perspective. Qualifiers: Heart failure type: unspecified Heart failure chronicity: chronic Qualified Code(s): I50.9 - Heart failure, unspecified (4) Acute kidney injury Current Visit: Yes Status: Acute Multifactorial acute kidney injury. Patient and improving from urinary output and appears to have plateaued from biochemical renal markers. - Subjective Interval history: Patient is postoperative day #3 following right femoral popliteal bypass graft and femoral and popliteal artery endarterectomies. Renal dysfunction has stabilized by biochemical parameters. Urinary output is improved. In addition the patient's mental status is significantly improved overnight. Patient is awake and alert and feeding himself. He has no right lower extremity complaints. Vital Signs, Last 4 Hours Temp Pulse Resp BP Pulse Ox 03/24/19 11:39 99.1 F 85 20 129/60 96 - Physical Examination General: Present: No Apparent Distress HEENT: Present: Atraumatic Neck: Absent: JVD Neuro: Present: Alert and responsive Vascular: Present: Color/Temperature (Right foot is warm and pink.), Surgical incisions (Surgical incisions are clean and dry) Skin: Present: Wound/ulcer(s) (Ulcerations on dorsum of right toes are stable and dry. No sign of infection.) Results 03/24/19 11:40 03/24/19 06:34 Lab Results, Last 24 hours 03/23/19 03/24/19 03/24/19 15:42 06:34 06:34 WBC 6.4 Hgb 7.6 L Hct 23.1 L Plt Count 110 L Sodium 143 Potassium 4.6 4.2 Chloride 108 H Carbon Dioxide 23 BUN 79 H Creatinine 3.18 H Glucose 213 H Calcium 8.3 L 03/24/19 11:40 WBC Hgb 7.4 L Hct 22.8 L Plt Count Sodium Potassium Chloride Carbon Dioxide BUN Creatinine Glucose Calcium Consult Discharge Plan - Plan Additional Instructions: Keep surgical sites dry for total of 5 days following surgery. No lifting greater than 10 pounds. No manual labor. Patient may walk inside or outside. Patient may use stairs as tolerated. Resume usual home medications from a vascular surgery perspective. Follow-up in vascular surgery clinic in 2 weeks after discharge. Referrals: [facility] [Primary Care Provider] - Manuel Mott MD [Partnered Physician] - (Follow-up with Dr. Mott in vascular surgery clinic in 2 weeks after discharge.)
[2019-03-24 16:32] LABS: Hematocrit 22.8 % (37.5-50.1); Hemoglobin 7.6 g/dL (12.9-16.9)
[2019-03-24] MEDS ORDERED: 0.9 % Sodium Chloride 250 ML ONE (16:36)
--- NOTE | 2019-03-24 18:28 | Electrocardiograph Report ---
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
[2019-03-24] MEDS: Divalproex (24 HR) 500 MG TABLET PO SCH ×2 (21:00→21:32)
[2019-03-24 21:31] LABS: Hematocrit 22.3 % (37.5-50.1); Hemoglobin 7.3 g/dL (12.9-16.9)
[2019-03-25] MEDS ORDERED: 0.9 % Sodium Chloride 250 ML ONE (03:03)
[2019-03-25] MEDS: 0.9 % Sodium Chloride 1,000 ML IVC SCH ×2 (06:01→18:10)
[2019-03-25] MEDS: Insulin LISPRO 300 UNITS/3 ML VIAL SQ SCH ×3 (06:04→18:09)
--- NOTE | 2019-03-25 08:21 | Internal Med Progress Note ---
<Dina Guadarrama - Last Filed: 03/25/19 12:46> Hospitalist Progress Note - Encounter Date of Encounter: 03/25/19 - Exam Vitals: Temp Pulse Resp BP Pulse Ox 98.0 F 82 16 136/65 100 03/25/19 10:48 03/25/19 10:48 03/25/19 10:48 03/25/19 10:48 03/25/19 10:48 - Assessment and Plan (1) Peripheral vascular disease Current Visit: Yes Status: Chronic (2) Diabetes Current Visit: Yes Status: Chronic (3) Congestive heart failure Current Visit: Yes Status: Chronic (4) DVT prophylaxis Current Visit: Yes Status: Acute (5) Hypertension Current Visit: Yes Status: Acute - Time Spent with Patient Total time spent is greater than 50% in coordination of care (as documented) at patient's floor/unit and/or counseling patient: Internal Medicine: Result - Labs CBC & Chem 7: 03/25/19 08:54 03/25/19 08:54 Labs: Short CBC 03/24/19 03/24/19 03/25/19 Range/Units 16:01 21:17 08:54 WBC 4.6 (4.3-11.1) K/mcL Hgb 7.6 L 7.3 L 8.7 L (12.9-16.9) g/dL Hct 22.8 L 22.3 L 26.6 L (37.5-50.1) % Plt Count 105 L (140-400) K/mcL Neutrophils # 3.5 (1.6-8.9) K/mcL BMP 03/25/19 08:54 Sodium 143 Potassium 3.8 Chloride 109 H Carbon Dioxide 25 BUN 65 H Creatinine 1.55 H Glucose 203 H Calcium 8.5 L - ABG Interpretation ABG results: ABG ABG pH 7.34 pH Units (7.32-7.45) 03/23/19 02:08 ABG pCO2 36 mmHg (35-45) 03/23/19 02:08 ABG pO2 89 mmHg (85-104) 03/23/19 02:08 ABG O2 Saturation 96 % (95-98) 03/23/19 02:08 PT/INR, D-dimer PT 13.9 Seconds (9.4-12.1) H 03/18/19 04:58 - Impressions Impressions Abdomen/Pelvis CT 03/24/19 14:30 IMPRESSION: Wall thickening and inflammatory changes associated the duodenum. Most likely considerations are infectious or inflammatory duodenitis, or peptic ulcer disease. There is enlargement/distention of the gallbladder. High-density material material consistent with sludge or cholelithiasis noted in the lumen. Correlate for any evidence of cholecystitis and consider gallbladder ultrasound evaluation. Cirrhotic appearing liver. Enlargement of the spleen consistent suggesting associated portal hypertension. Bladder collapsed around a Sandhu catheter. No evidence of superimposed cystitis. No hydronephrosis/obstructive uropathy of either kidney. D/ / Deuce Bean MD / Deuce Bean MD Interpreting Provider: Deuce Bean MD Consult Discharge Plan - Plan Additional Instructions: Keep surgical sites dry for total of 5 days following surgery. No lifting greater than 10 pounds. No manual labor. Patient may walk inside or outside. Patient may use stairs as tolerated. Resume usual home medications from a vascular surgery perspective. Follow-up in vascular surgery clinic in 2 weeks after discharge. [facility]errals: [facility] [Primary Care Provider] - Manuel Mott MD [Partnered Physician] - (Follow-up with Dr. Mott in vascular surgery clinic in 2 weeks after discharge.) - Attending Attestation I examined this patient and my medical decision-making was reviewed with the Resident Physician Dr Quinonez. I agree with the documented findings, disposition and treatment plan as described except to the extent set forth below. Mr Canales is admitted with PVD requiring surgical intervention and has developed post op blood loss anemia and acute renal failure,encephalopathy and UTI no family present. awake, waves hello when entering room, answers all questions today, level of alertness and interaction greatly improved. + epigastric pain, denies nausea, fevers ro chills. No sob or lightheadedness. No chest pain. He denies any history of seizure disorder, though he isn't sure if he has a mood disorder either. gen- awake, alert appears stated age eyes- pupils equal round , + conjunctival pallor cv- reg rate and rhythm, normal s1,s2, no le pitting edema lungs- ctabl, no wheezing, rhonchi or crackles, normal resp effort on room air abd- soft, + epigastric tenderness with grimace, no guarding, no rigidity, no pain to palpation RUQ, + bs neuro- alert and oriented to person, not palce or situation, answers questions approprately and follows all commands, CN grossly intact and no focal deficits can be appreciated skin- + pallor, bl groin ecchymosis far greater left groin, reduced in area today, no palpable hematoma present , healing right groin incision without bleeding and no hematoma, RUE large ecchymotic area wrist to elbow without palpable hematoma PVD s/p right fem-pop bypass 03/21 -Dr Rollins followed, RLE US no dvt, vasc surg follow up within 2 weeks of dc and podiatry/wound clinic follow up for foot wounds Post Operative blood loss anemia Suspect related to anticoagulation, now held Ecchymotic areas bl groin and RUE, no other identifiable signs of bleeding Hemodynamically stable -no AC -serial h/hs now stable after 2 units prbc, cont to trend -stool occult pending -if hgb does not stabilize or he becomes hemodynamically unstable at that time a contrast CTA to assess for active bleeding would be appropriate and would need nephro assistance as this surely would worsen his renal function Acute Kidney injury, improving UTI- CRE on [facility] cx just prior to admit -nephro following, cont IVFs, holding nephrotoxins -cont cipro, ID following Encephalopathy likely combination metabolic with renal failure and infectious with UTI, improving daily -cont tx as above CT a/p with gallbladder inflammation and sludge/stones and duodenitis -ID following, will obtain rUQ US and further treatment/intervention pending result -cont cipro Low depakote level- on extensive review of chart he has no seizure hx but does have mood d/o hx on mulitple mood stabilizing agents,have not been able to confirm with pt or family -discussed with pharmacist, if for mood d/o no dose change required, if for seizures, it would need adjusted, bt given mental status and poor renal function the risk of adjustment would outweigh the benefit - prn ativan for seizure and seizure precautions empirically while getting addl info further diagnoses and plan as documented by resident <Grabiel Quinonez - Last Filed: 03/25/19 14:55> Hospitalist Progress Note - Encounter Date of Encounter: 03/25/19 Time of Encounter: 08:21 - Subjective Interval History: Patient seen and examined at bedside; he is feeling much better today. He is more conversant than he was yesterday, and is now able to answer questions. Ecchymosis still present in the left groin area, although it appears to be improving. Renal function has improved; last creatinine was 1.55. Urine output continues to improve. CT scan of the abdomen and pelvis demonstrated possible inflammatory changes in the duodenum, as well as enlargement of the gallbladder possibly representing cholecystitis; right upper quadrant ultrasound is ordered and is currently pending. - Exam Vitals: Temp Pulse Resp BP Pulse Ox 98.1 F 87 16 144/55 97 03/25/19 07:57 03/25/19 07:57 03/25/19 07:57 03/25/19 07:57 03/25/19 07:57 Exam: General: conversant; mental status improved, no acute distress Head: atraumatic, normocephalic Eye: PERRL, EOMI, conjuntiva pink, sclera anicteric Neck: Supple, trachea midline; No lymphadenopathy Respiratory: CTAB. No accessory muscle use, wheezes, rales, or rhonchi Cardiovascular: RRR, +S1, +S2; no murmurs, rubs, gallops Abdomen: Soft, nontender Extremities: RLE wrapped; Black discolorations on both feet; may represent dry gangrene Psychiatric: Normal affect, normal mood Skin: ecchymosis present in groin, L>R; surgical site intact with no signs of bleeding - Assessment and Plan (1) Acute kidney injury Current Visit: Yes Status: Acute Assessment and Plan: - Unknown etiology at this time; possibly contrast-induced, poor PO intake - Patient did receive IV contrast during aortogram on 03/18 - CrCl: 0.3%; prerenal picture; of note, patient did receive IV contrast for his procedure - Renal function appears to be improving; urine output increasing - Increased to 3.55 from 0.98 on 03/22; subsequent levels have been as follows: 3.77, 3.18, 1.55 Plan: - Nephrology consulted; would appreciate any further recommendations -Continue IV fluid hydration at 100 mL per hour with normal saline - Avoid nephrotoxic agents if possible (2) Abnormal CT of the abdomen Current Visit: Yes Status: Acute Assessment and Plan: CT scan was obtained on 03/24 of the abdomen and pelvis to rule out the presence of a hematoma; demonstrated the following: - Wall thickening/inflammatory changes associated with duodenum - Enlargement/distention of gallbladder, high density material consistent with sludge were cholelithiasis in lumen - Cirrhotic-appearing liver - Enlargement of spleen consistent with portal hypertension Plan: - Right upper quadrant ultrasound is ordered and is currently pending (3) Postoperative anemia Current Visit: Yes Status: Acute Assessment and Plan: - Patient has had a drop in his hemoglobin after his procedure - On physical exam, he has ecchymosis present in his groin area - Hemoglobin dropped to a low of 7.4; he has been transfused with 2 units of packed red blood cells - Last hemoglobin was 8.7 - H/H q6 is ordered; will transfuse again if necessary; goal H/H of >8 in the setting of cardiovascular disease (4) Peripheral vascular disease Current Visit: Yes Status: Chronic Assessment and Plan: - Initially presented after [facility] for concerns of absent pulses in the LLE - Patient is a known history of peripheral vascular disease - On presentation, patients pulse was palpable the left lower extremity - Patient is postop day 4 of right lower extremity revascularization - Will require follow-up with vascular surgery in the outpatient setting 2 weeks after discharge (5) UTI (urinary tract infection) Current Visit: Yes Status: Acute Assessment and Plan: - Secondary to Enterobacter cloacae MDRO; sensitive to ciprofloxacin, gentamicin, imipenem, Levaquin, tobramycin, TMP/SMX - Ciprofloxacin 400 mg IV every 12, day 4 - ID is following; would appreciate any further recommendations (6) Diabetes Current Visit: Yes Status: Chronic Assessment and Plan: - Sliding scale insulin - Blood glucose checks (7) Hypertension Current Visit: Yes Status: Acute Assessment and Plan: - Currently well-controlled on amlodipine, carvedilol - Lisinopril being held due to HUNTER (8) DVT prophylaxis Current Visit: Yes Status: Acute Assessment and Plan: - Eliquis being held due to acute postoperative anemia - Time Spent with Patient Total time spent is greater than 50% in coordination of care (as documented) at patient's floor/unit and/or counseling patient: Internal Medicine: Result - Labs CBC & Chem 7: 03/25/19 08:54 03/25/19 08:54 Labs: Short CBC 03/24/19 03/24/19 03/24/19 Range/Units 11:40 16:01 21:17 Hgb 7.4 L 7.6 L 7.3 L (12.9-16.9) g/dL Hct 22.8 L 22.8 L 22.3 L (37.5-50.1) % - ABG Interpretation ABG results: ABG ABG pH 7.34 pH Units (7.32-7.45) 03/23/19 02:08 ABG pCO2 36 mmHg (35-45) 03/23/19 02:08 ABG pO2 89 mmHg (85-104) 03/23/19 02:08 ABG O2 Saturation 96 % (95-98) 03/23/19 02:08 PT/INR, D-dimer PT 13.9 Seconds (9.4-12.1) H 03/18/19 04:58 - Impressions Impressions Abdomen/Pelvis CT 03/24/19 14:30 IMPRESSION: Wall thickening and inflammatory changes associated the duodenum. Most likely considerations are infectious or inflammatory duodenitis, or peptic ulcer disease. There is enlargement/distention of the gallbladder. High-density material material consistent with sludge or cholelithiasis noted in the lumen. Correlate for any evidence of cholecystitis and consider gallbladder ultrasound evaluation. Cirrhotic appearing liver. Enlargement of the spleen consistent suggesting associated portal hypertension. Bladder collapsed around a Sandhu catheter. No evidence of superimposed cystitis. No hydronephrosis/obstructive uropathy of either kidney. 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 (3) Congestive heart failure Qualifiers: Heart failure type: unspecified Heart failure chronicity: chronic Qualified Code(s): I50.9 - Heart failure, unspecified (5) Hypertension Qualifiers: Hypertension type: essential hypertension Qualified Code(s): I10 - Essential (primary) hypertension <Grabiel Quinonez - Last Filed: 03/25/19 14:55> (5) UTI (urinary tract infection) Qualifiers: Urinary tract infection type: site unspecified Hematuria presence: with hematuria Qualified Code(s): N39.0 - Urinary tract infection, site not specified; R31.9 - Hematuria, unspecified (6) Diabetes Qualifiers: Diabetes mellitus type: type 2 Diabetes mellitus group home insulin use: with group home use Diabetes mellitus complication status: with circulatory complication Diabetes mellitus complication detail: with peripheral angiopathy with gangrene Qualified Code(s): E11.52 - Type 2 diabetes mellitus with diabetic peripheral angiopathy with gangrene; Z79.4 - FDC (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
[2019-03-25 09:36] LABS: Basophils % 0.4 %; Eosinophils % 1.1 %; Hemoglobin 8.7 g/dL (12.9-16.9); Mean Platelet Volume 9.3 fL (9.4-12.4); Monocytes % 8.1 %; Red Blood Count 2.64 M/mcL (4.19-5.50)
[2019-03-25 09:38] LABS: Eosinophils # 0.1 K/mcL (0.0-0.6); Hematocrit 26.6 % (37.5-50.1); Immature Granulocytes % 1.3 % (0-4); Immature Platelets 1.1 % (1.1-6.1); Lymphocytes # 0.6 K/mcL (0.6-4.6); Lymphocytes % 12.1 %; Mean Corpuscular HGB Conc 32.7 g/dL (31.6-35.5); Mean Corpuscular Volume 100.8 fL (83.0-100.0); Monocytes # 0.4 K/mcL (0.0-1.3); Neutrophils # 3.5 K/mcL (1.6-8.9); Platelet Count 105 K/mcL (140-400); Red Cell Distribution Width 18.1 % (11.5-14.5)
[2019-03-25] MEDS: Aspirin Enteric Coated 81 MG Tablet PO SCH (09:46)
[2019-03-25] MEDS: Folic Acid 1 MG TABLET PO SCH (09:46)
[2019-03-25] MEDS: Cholecalciferol (D-3) 1,000 UNIT TABLET PO SCH (09:46)
[2019-03-25] MEDS: Thiamine (B-1) 100 MG TABLET PO SCH (09:46)
[2019-03-25] MEDS: amLODIPine 5 MG TABLET PO SCH (09:46)
[2019-03-25] MEDS: BuPROPion SR (12 HR) 150 MG TABLET PO SCH (09:47)
[2019-03-25 09:52] LABS: Calcium 8.5 mg/dL (8.6-10.3); Potassium 3.8 mEq/L (3.5-5.1)
--- NOTE | 2019-03-25 10:46 | Infectious Disease Progress No ---
ID Progress Note Date of Encounter: 03/25/19 Time of Encounter: 10:15 - Subjective Subjective: Patient seen and examined. No acute events noted overnight. Patient awake and little more compliant with exam today. He does not tell me his name and states he does not want to. He denies any fevers or chills or rigors. Denies chest pain, shortness of breath, or cough. Reports some periumbilical and right upper quadrant abdominal pain. He also complains of pain in the left groin site. Varela catheter remains patent. States his appetite is okay. Denies back or extremity pain. His oral thrush or skin lesions. - Objective CBC & Chem 7: 03/28/19 04:00 03/28/19 04:00 - Line Documentation Line Documentation: Varela Catheter (Draining clear urine) - Exam Vitals: Temp Pulse Resp BP Pulse Ox 98.1 F 87 16 144/55 97 03/25/19 07:57 03/25/19 07:57 03/25/19 07:57 03/25/19 07:57 03/25/19 07:57 Exam: Head: Atraumatic, normal inspection, normocephalic. Eye: EOMI, PERRLA, no scleral icterus noted. ENT: Mucous membranes moist. No odontogenic infection noted. Neck: Normal inspection, no meningismus. Respiratory: Clear to auscultation. No rales, respiratory distress, rhonchi, or wheezes noted. Cardiovascular: Regular rate and rhythm, S1 and S2 audible. No murmurs, rubs, or gallops. GI: Soft, nondistended, normal bowel sounds. Tenderness noted with palpation of the right upper quadrant and epigastric regions. Varela catheter is patent draining clear yellow urine. Extremities:No joint swelling or tenderness noted. Surgical site noted to the right groin ALYCE with wound edges well-approximated. No erythema, warmth, or drainage noted. 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 Mild ecchymosis noted. No fluctuance or mass noted. Left foot dressing C/D/I. Superficial scabbed lesions noted to the right toes without evidence of infection. Back: Normal inspection. No vertebral tenderness noted. Neurological: Alert, oriented 2, no focal deficits. Psychiatric: flat affect, normal mood. Skin: Dry, intact, warm. Normal color. No rashes. - Assessment and Plan (1) UTI (urinary tract infection) Current Visit: Yes Status: Acute Asymptomatic bacteriuria versus true infection. Causative organism: Enterobacter cloacae. (R: carbapenems, but negative for CRE) Currently has a varela catheter, but did not have one when urine was collected. Bilateral CVAT noted. CT of the abdomen and pelvis negative for pyelonephritis or hydronephrosis. Currently on IV cipro. Qualifiers: Urinary tract infection type: site unspecified Hematuria presence: with hematuria Qualified Code(s): N39.0 - Urinary tract infection, site not specified; R31.9 - Hematuria, unspecified SNOMED Code(s): 44883629 (2) Peripheral vascular disease Current Visit: Yes Status: Chronic Bilateral OLEKSANDR studies shows moderate disease in the RLE and no disease on the LLE. Vascular surgery consulted. Status post angiogram 03/18/19 that showed distal right SFA occlusion. Status post right femoral AK popliteal bypass graft, right common femoral artery endarterectomy, and right AK popliteal endarterectomy 03/21/19. Management per the vascular surgery team. SNOMED Code(s): 763346064 (3) Acute kidney injury Current Visit: Yes Status: Acute Likely multifactorial: contrast-induced and possible hypoperfusion intra-op. RP UTS negative. Improved. Nephrology consulted. Monitor renal function and dose-adjust medications. Avoid nephrotoxins as able. SNOMED Code(s): 56981644, 70229859 (4) Anemia Current Visit: Yes Status: Acute Qualifiers: Anemia type: unspecified type Qualified Code(s): D64.9 - Anemia, unspecified SNOMED Code(s): 240662662 (5) Alcohol use Current Visit: Yes Status: Acute CIWA protocol discontinued. 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: with professor of philosophy use Diabetes mellitus complication status: with circulatory complication Diabetes mellitus complication detail: with peripheral angiopathy with gangrene Qualified Code(s): E11.52 - Type 2 diabetes mellitus with diabetic peripheral angiopathy with gangrene; Z79.4 - USP (current) use of insulin SNOMED Code(s): 43386056 (7) Hypertension Current Visit: Yes Status: Acute Qualifiers: Hypertension type: essential hypertension Qualified Code(s): I10 - Essential (primary) hypertension SNOMED Code(s): 52796152 (8) Congestive heart failure Current Visit: Yes Status: Chronic Qualifiers: Heart failure type: unspecified Heart failure chronicity: chronic Qualifi ed Code(s): I50.9 - Heart failure, unspecified SNOMED Code(s): 23402477 (9) Duodenitis Current Visit: Yes Status: Suspected CT of the abdomen and pelvis showed wall thickening and inflammatory changes associated with the duodenum, most likely considerations or infectious or inflammatory duodenitis or peptic ulcer disease. Consider GI to evaluate. SNOMED Code(s): 79296961 (10) Cholelithiasis Current Visit: Yes Status: Acute CT of the abdomen and pelvis shows enlargement/distention of the gallbladder and high density material consistent with sludge or cholelithiasis noted in the lumen. Recommended to correlate for any evidence of cholecystitis and consider gallbladder ultrasound for further evaluation. Abdominal exam consistent with positive Xavier sign and possible cholecystitis. A bladder ultrasound ordered by the primary team and pending completion. Qualifiers: Cholelithiasis location: gallbladder Cholecystitis presence: without cholecystitis Biliary obstruction: without biliary obstruction Qualified Code(s): K80.20 - Calculus of gallbladder without cholecystitis without obstruction SNOMED Code(s): 352188289 (11) Abdominal pain Current Visit: Yes Status: Acute Concerning her cholecystitis versus duodenitis. Pain management per the primary team. Qualifiers: Abdominal location: right upper quadrant Qualified Code(s): R10.11 - Right upper quadrant pain SNOMED Code(s): 58892503 (12) Cirrhosis Current Visit: Yes Status: Chronic Cirrhotic-appearing liver noted on CT of the abdomen and pelvis. The patient reports drinking a sixpack of beer daily. MELD score 9 based on admission labs prior to HUNTER. Qualifiers: Hepatic cirrhosis type: alcoholic cirrhosis Ascites presence: without ascites Qualified Code(s): K70.30 - Alcoholic cirrhosis of liver without ascites SNOMED Code(s): 37812529 - Recommendations Recommendations: Contact precautions per protocol. Await findings from gallbladder ultrasound. Consider GI to evaluate for duodenitis/PUD and cirrhosis. Continue cipro 400mg IV Q12H. Duration of treatment depends on the clinical picture. Monitor renal function and dose-adjust antibiotics. Consult Discharge Plan - Plan Additional Instructions: Keep surgical sites dry for total of 5 days following surgery. No lifting greater than 10 pounds. No manual labor. Patient may walk inside or outside. Patient may use stairs as tolerated. Resume usual home medications from a vascular surgery perspective. Follow-up in vascular surgery clinic in 2 weeks after discharge. requires [facility] referral to surgical consultation for RUQ US findings and referral to a wound clinic for right foot wounds continued care Referrals: [facility],PC[facility] [Primary Care Provider] - Manuel Mott MD [Partnered Physician] - (Follow-up with Dr. Mott in vascular surgery clinic in 2 weeks after discharge.) - Attending Attestation I have personally performed a face to face evaluation on this patient. I have reviewed and agree with the care plan. History and Exam by me shows: Assessment and plan 1.Urinary tract infection with multidrug resistant organisms including Enterobacter cloacae R: ertapenem yet susceptible to meropenem? NO CRE 2.Peripheral vascular disease status post angiogram 03/18/2019 with a right femoral popliteal bypass graft, right common femoral artery endarterectomy and right AK popliteal endarterectomy 03/21/2019 3.Acute kidney injury 4.EtOH abuse Recommendations doing great on cipro continue cipro for now Duration of treatment depends on the CT findings
--- NOTE | 2019-03-25 11:35 | Nephrology Progress Note ---
Date of Encounter: 03/25/19 Time of Encounter: 10:20 - Assessment and Plan (1) Acute kidney injury Current Visit: Yes Status: Acute Non-oliguric acute kidney injury, nicely improving. Continue to follow a renal protective strategy. Be sure to avoid nephrotoxic agents such as IV contrast as able, Bactrim, NSAIDs, and etc. No indications for dialysis at this time. As always I recommend following a renal protective strategy with avoidance of nephrotoxic agents as able. With his renal function consistently improving I will sign off at this time. Rodolfo harp feel free to call or page me with any nephrology questions. Because the patient had a significant acute kidney injury I would recommend at least 1 outpatient nephrology follow-up. (2) Peripheral vascular disease Current Visit: Yes Status: Chronic (3) Renal cyst, left Current Visit: Yes Status: Acute (4) Hypertension Current Visit: Yes Status: Acute This was incidentally noted on the retroperitoneal ultrasound, and there was some possible debris described in the report of the left renal cyst; thus making this a mildly complex renal cyst. I recommend serial imaging in about 6 months. Qualifiers: Hypertension type: essential hypertension Qualified Code(s): I10 - Essential (primary) hypertension Subjective Principal diagnosis: HUNTER Interval history: The patient was seen and examined, and he did not affirm uremic complaints such as nausea/vomiting. Objective - Vital Signs Vital signs: Vital Signs Temp Pulse Resp BP Pulse Ox 03/25/19 10:48 98.0 F 82 16 136/65 100 03/25/19 07:57 98.1 F 87 16 144/55 97 03/25/19 03:33 98.2 F 95 16 169/77 96 03/25/19 03:18 97.9 F 91 16 150/67 96 03/25/19 03:13 97.5 F L 86 16 132/66 96 03/24/19 23:06 98.1 F 93 17 126/55 95 03/24/19 19:47 97.9 F 95 17 134/66 94 03/24/19 18:39 97.4 F L 91 16 147/67 93 03/24/19 16:59 97.6 F 88 16 144/66 94 03/24/19 16:44 98.1 F 93 18 147/70 03/24/19 15:36 98.0 F 91 20 131/66 94 03/24/19 11:39 99.1 F 85 20 129/60 96 Intake and Output 03/24/19 03/25/19 03/25/19 23:59 07:59 15:59 Intake Total 300 / 6340 900 / 1040 140 / 1040 Output Total 900 / 1800 450 / 2050 1600 / 0 Balance -600 / 4540 450 / -1010 -1460 / -1010 Intake: IV Fluids 200 / 200 Cipro Premix 400 MG/200 ML 400 200 / 200 mg In 200 ml @ 200 mls/hr IVPB Q18H [facility] Rx#:[id number] Oral 140 / 140 Blood Product 300 / 300 700 / 700 Rbcs Leuko Poor As-1 Unit 300 / 300 [id number] Rbcs Leuko Poor As-1 Unit 700 / 700 [id number] Output: Catheter 900 / 1800 450 / 2050 1600 / 0 Other: Meal Breakfast Percent of Meal Consumed 50% Blood Glucose* 246 271 - General Appearance General appearance: Present: well-developed, well-nourished, obese, chronically ill EENT: Present: ATNC Cardiology: Present: edema - Lab 03/26/19 00:20 03/26/19 00:20 Most recent lab results 03/25/19 08:54 Calcium 8.5 L Consult Discharge Plan - Plan Additional Instructions: Keep surgical sites dry for total of 5 days following surgery. No lifting greater than 10 pounds. No manual labor. Patient may walk inside or outside. Patient may use stairs as tolerated. Resume usual home medications from a vascular surgery perspective. Follow-up in vascular surgery clinic in 2 weeks after discharge. [facility]errals: [facility] [Primary Care Provider] - Manuel Mott MD [Partnered Physician] - (Follow-up with Dr. Mott in vascular surgery clinic in 2 weeks after discharge.)
--- NOTE | 2019-03-25 15:18 | Vascular/Endovas Progress Note ---
Date of Encounter: 03/25/19 Time of Encounter: 13:30 - Assessment and plan (1) Peripheral vascular disease Current Visit: Yes Status: Chronic The patients wounds are healing well. His right lower extremity is warm and well perfused. He has no hematoma. His CT was reviewed and there is no evidence of hemorrhage or hematoma. The patient has no acute vascular issues. He may follow-up with Dr. Mott after discharge. (2) Hypertension Current Visit: Yes Status: Acute Qualifiers: Hypertension type: essential hypertension Qualified Code(s): I10 - Essential (primary) hypertension (3) Diabetes Current Visit: Yes Status: Chronic Qualifiers: Diabetes mellitus type: type 2 Diabetes mellitus detention insulin use: with detention use Diabetes mellitus complication status: with circulatory complication Diabetes mellitus complication detail: with peripheral angiopathy with gangrene Qualified Code(s): E11.52 - Type 2 diabetes mellitus with diabetic peripheral angiopathy with gangrene; Z79.4 - skilled nursing (current) use of insulin - Subjective Interval history: The patient denies any abdominal, flank, back or leg pain. He denies chest pain or shortness of breath. He reports he is comfortable. - Physical Examination General: Present: Conversant, No Apparent Distress Cardiac: Present: Reg Rate and Rhythm Lungs: Present: Normal Breath Sounds Neuro: Present: Alert and responsive, No focal deficits noted Vascular: Present: Pulse, normal, Surgical incisions (Is clean, dry and intact, expected ecchymosis over the left inguinal region after angiogram, no hematoma). Absent: Cyanosis Abdomen: Present: Soft, Non-tender Skin: Present: No rashes noted on visualized skin Results 03/25/19 08:54 03/25/19 08:54 Lab Results, Last 24 hours 03/24/19 03/24/19 03/25/19 16:01 21:17 08:54 WBC 4.6 Hgb 7.6 L 7.3 L 8.7 L Hct 22.8 L 22.3 L 26.6 L Plt Count 105 L Sodium Potassium Chloride Carbon Dioxide BUN Creatinine Glucose Calcium 03/25/19 08:54 WBC Hgb Hct Plt Count Sodium 143 Potassium 3.8 Chloride 109 H Carbon Dioxide 25 BUN 65 H Creatinine 1.55 H Glucose 203 H Calcium 8.5 L - Imaging / Other Tests CT/CTA: report reviewed, image reviewed Consult Discharge Plan - Plan Additional Instructions: Keep surgical sites dry for total of 5 days following surgery. No lifting greater than 10 pounds. No manual labor. Patient may walk inside or outside. Patient may use stairs as tolerated. Resume usual home medications from a vascular surgery perspective. Follow-up in vascular surgery clinic in 2 weeks after discharge. Referrals: [facility] [Primary Care Provider] - Manuel Mott MD [Partnered Physician] - (Follow-up with Dr. Mott in vascular surgery clinic in 2 weeks after discharge.)
[2019-03-25 17:14] LABS: Hematocrit 26.5 % (37.5-50.1); Hemoglobin 8.8 g/dL (12.9-16.9)
[2019-03-25 20:20] LABS: Hematocrit 26.2 % (37.5-50.1); Hemoglobin 8.7 g/dL (12.9-16.9)
[2019-03-25] MEDS: Divalproex (24 HR) 500 MG TABLET PO SCH (21:08)
[2019-03-26 00:46] LABS: Mean Platelet Volume 8.9 fL (9.4-12.4)
[2019-03-26 00:48] LABS: Basophils % 0.4 %; Eosinophils # 0.1 K/mcL (0.0-0.6); Eosinophils % 1.6 %; Hematocrit 25.8 % (37.5-50.1); Hemoglobin 8.7 g/dL (12.9-16.9); Immature Granulocytes % 1.6 % (0-4); Lymphocytes # 0.7 K/mcL (0.6-4.6); Lymphocytes % 12.7 %; Mean Corpuscular HGB Conc 33.7 g/dL (31.6-35.5); Mean Corpuscular Hemoglobin 33.3 pg (28.0-33.3); Mean Corpuscular Volume 98.9 fL (83.0-100.0); Monocytes # 0.4 K/mcL (0.0-1.3); Monocytes % 7.8 %; Neutrophils # 3.9 K/mcL (1.6-8.9); Platelet Count 106 K/mcL (140-400); Red Blood Count 2.61 M/mcL (4.19-5.50); Red Cell Distribution Width 17.7 % (11.5-14.5); Segmented Neutrophils % 75.9 %
[2019-03-26 01:01] LABS: BUN/Creatinine Ratio 50 (6-26); Blood Urea Nitrogen 54 mg/dL (8-23); Calcium 8.1 mg/dL (8.6-10.3); Carbon Dioxide 27 mEq/L (23-29); Chloride 112 mEq/L (98-107); Glucose 216 mg/dL (70-105); Osmolality,Calculated 317 (280-300); Sodium 143 mEq/L (136-145); eGFR For Non-African Americans > 60 (> 60)
[2019-03-26] MEDS: Insulin LISPRO 300 UNITS/3 ML VIAL SQ SCH ×4 (01:06→17:28)
[2019-03-26] MEDS: 0.9 % Sodium Chloride 1,000 ML IVC SCH ×2 (03:22→05:00)
--- NOTE | 2019-03-26 07:36 | Internal Med Progress Note ---
<Delroy Castillo - Last Filed: 03/26/19 12:06> Hospitalist Progress Note - Encounter Date of Encounter: 03/26/19 Time of Encounter: 11:33 - Subjective Interval History: Patient was seen and examined at bedside this morning. He is intermittently cooperating with interview. He does not his head yes or no and give a thumbs up sign but minimally vocalizes. He communicates that he is in no pain at this time, as had no fevers, chills, nausea, vomiting. He has no complaints. - Exam Vitals: Temp Pulse Resp BP Pulse Ox 98.1 F 94 18 162/75 97 03/26/19 06:39 03/26/19 06:39 03/26/19 06:39 03/26/19 06:39 03/26/19 06:39 Exam: Gen.: Vitals noted. No acute distress., resting comfortably in bed. Makes eye contact and nods appropriately HEENT: EOMI, oropharynx clear, Normocephalic, atraumatic, MMM Cardiac: RRR, no murmur, +S1/S2, No BLE edema Pulmonary: CTA bilaterally, no wheezes, rales or rhonchi, equal chest expansion, unlabored breathing Abdomen: soft, winces with palpation of epigastric region, BS noted, no guarding, no palpable HSM Skin: warm and dry. Improved ecchymosis on left groin. Right arm ecchymosis is stable. MSK: no joint swelling noted, gait no assessed while in bed. Neuro: Unable to fully assess due to cooperation. mental status grossly improved. moves all extremities, no focal deficits Psych: Appropriate mood and behavior, mildly agitated. - Assessment and Plan (1) Peripheral vascular disease Current Visit: Yes Status: Chronic Assessment and Plan: - Initially presented after the [facility] contacted [facility] for concerns of absent pulses in the LLE - Patient is a known history of peripheral vascular disease - On presentation, patients pulse was palpable the left lower extremity - Patient is postop day 5 of right lower extremity revascularization - Complication of HUNTER as elsewhere documented - Vasc surgery following and states that he is healing well and is ready for discharge from their standpoint - Distal pulses strong bilaterally Plan - Given concern for bleeding as below, we will continue to hold home eliquis at this time - Will require follow-up with vascular surgery in the outpatient setting 2 weeks after discharge (2) Diabetes Current Visit: Yes Status: Chronic Assessment and Plan: Sliding scale insulin. Blood glucose checks ACHS. Blood sugars running in the 200s Okay to switch ISS and checks to Q6H while NPO for gallbladder ultrasound We will change insulin checks to before meals at bedtime once ultrasound completed. Consider increasing insulin regimen as he eats more (3) Congestive heart failure Current Visit: Yes Status: Chronic Assessment and Plan: History of congestive heart failure. Monitor I's and O's. Daily weights. Not in acute exacerbation. Echocardiogram during this admission showed ejection fraction of 65% with mild diastolic dysfunction Resume medical management with home medications. (4) Hypertension Current Visit: Yes Status: Acute Assessment and Plan: Norvasc, lisinopril, Coreg at home lisinopril being held for HUNTER Mildly high today, will monitor after home meds (5) Alcohol use Current Visit: Yes Status: Acute Assessment and Plan: - Patient reportedly admit to heavy alcohol use - No signs/symptoms of withdrawal during this admission - CIWA protocol which has been discontinued - Suspect baseline mental status - Continue daily vitamins (6) UTI (urinary tract infection) Current Visit: Yes Status: Acute Assessment and Plan: - UTI with culture growing Enterobacter cloacae. - Culture obtained at [facility] was reportedly positive for CRE - ID following, appreciate recommendations - Patient is not admitting to dysuria, hematuria at this time. However this may be related to his altered mental status - Currently being treated with IV Cipro which urine culture was sensitive to - Patient does have Sandhu catheter - CT of the abdomen obtained on 03/24 shows no evidence of pyelonephritis or hydronephrosis but does show duodenitis Plan - Continue to follow ID recommendations - As patient's mental status is improving on IV Cipro, will continue this - Day 5 of therapy (7) Acute kidney injury Current Visit: Yes Status: Acute Assessment and Plan: - Improving - BUN/Cr of 54/1.09 this morning. - Has been as high as 3.77 during admission following surgery - Nephro following. Agree that this is likely secondary to contrast induced ATN with possible pre-renal etiology - Improved with supportive care and fluids - Nephrotoxins being held- lisinopril, lasix - FENA of 0.3%, pre-renal Plan - Given vast improvement, will stop fluids today and monitor - Appreciate Nephro input (8) Anemia Current Visit: Yes Status: Acute Assessment and Plan: - H/H improved this morning at 8.7/25.8 which is improved from 7.3 this admission - Etiology is likely post operative loss - Baseline appears to be 11-12 at admission - S/p 2 units PRBC on 03/24 and 03/25 - Is on home eliquis which was started after surgery, now being held Plan - Ecchymosis improving, Hgb stable - Will continue to monitor - Will not start home AC today, consider on discharge. - SCDs (9) Cirrhosis Current Visit: Yes Status: Chronic Assessment and Plan: - As noted on CT scan - Ammonia within normal limits - Patient has known alcohol history Plan - Continue monitor - Patient out of window for alcohol withdrawal. CIWA stopped - Follow up as outpatient (10) DVT prophylaxis Current Visit: Yes Status: Acute Assessment and Plan: Eliquis held for concerns for anemia SCD only on right. (11) Abdominal pain Current Visit: Yes Status: Acute Assessment and Plan: Suspect secondary to duodenitis as noted on CT scan ID following, patient is on Cipro Continue supportive care CT scan did show possible biliary sludge, right upper quadrant ultrasound ordered and pending (12) Metabolic encephalopathy Current Visit: Yes Status: Resolved Assessment and Plan: - Suspected that patient is currently at his baseline - Etiology may be multifactorial including acute renal failure, UTI, alcohol abuse/withdrawal, anemia - Patient is alert and oriented today however he is uncooperative with exam - Patient is being treated and renal failure has resolved, UTI improving - Vitals and labs are stable Plan - We will treat underlying etiology is also documented - Continue to monitor - Time Spent with Patient Total time spent is greater than 50% in coordination of care (as documented) at patient's floor/unit and/or counseling patient: Internal Medicine: Result - Labs CBC & Chem 7: 03/26/19 07:10 03/26/19 00:20 Labs: Short CBC 03/25/19 03/25/19 03/25/19 Range/Units 08:54 16:52 20:08 WBC 4.6 (4.3-11.1) K/mcL Hgb 8.7 L 8.8 L 8.7 L (12.9-16.9) g/dL Hct 26.6 L 26.5 L 26.2 L (37.5-50.1) % Plt Count 105 L (140-400) K/mcL Neutrophils # 3.5 (1.6-8.9) K/mcL 03/26/19 Range/Units 00:20 WBC 5.1 (4.3-11.1) K/mcL Hgb 8.7 L (12.9-16.9) g/dL Hct 25.8 L (37.5-50.1) % Plt Count 106 L (140-400) K/mcL Neutrophils # 3.9 (1.6-8.9) K/mcL BMP 03/25/19 03/26/19 08:54 00:20 Sodium 143 143 Potassium 3.8 4.0 Chloride 109 H 112 H Carbon Dioxide 25 27 BUN 65 H 54 H Creatinine 1.55 H 1.09 Glucose 203 H 216 H Calcium 8.5 L 8.1 L - ABG Interpretation ABG results: ABG ABG pH 7.34 pH Units (7.32-7.45) 03/23/19 02:08 ABG pCO2 36 mmHg (35-45) 03/23/19 02:08 ABG pO2 89 mmHg (85-104) 03/23/19 02:08 ABG O2 Saturation 96 % (95-98) 03/23/19 02:08 PT/INR, D-dimer PT 13.9 Seconds (9.4-12.1) H 03/18/19 04:58 Consult Discharge Plan - Plan Additional Instructions: Keep surgical sites dry for total of 5 days following surgery. No lifting greater than 10 pounds. No manual labor. Patient may walk inside or outside. Patient may use stairs as tolerated. Resume usual home medications from a vascular surgery perspective. Follow-up in vascular surgery clinic in 2 weeks after discharge. Referrals: [facility] [Primary Care Provider] - Manuel Mott MD [Partnered Physician] - (Follow-up with Dr. Mott in vascular surgery clinic in 2 weeks after discharge.) <Dina Guadarrama - Last Filed: 03/26/19 12:15> Hospitalist Progress Note - Encounter Date of Encounter: 03/26/19 - Exam Vitals: Temp Pulse Resp BP Pulse Ox 98.4 F 102 20 159/70 96 03/26/19 10:41 03/26/19 10:41 03/26/19 10:41 03/26/19 10:41 03/26/19 10:41 - Assessment and Plan (1) Peripheral vascular disease Current Visit: Yes Status: Chronic (2) Diabetes Current Visit: Yes Status: Chronic (3) Congestive heart failure Current Visit: Yes Status: Chronic (4) DVT prophylaxis Current Visit: Yes Status: Acute (5) Hypertension Current Visit: Yes Status: Acute (6) Alcohol use Current Visit: Yes Status: Acute (7) UTI (urinary tract infection) Current Visit: Yes Status: Acute (8) Acute kidney injury Current Visit: Yes Status: Acute (9) Anemia Current Visit: Yes Status: Acute (10) Abdominal pain Current Visit: Yes Status: Acute (11) Cirrhosis Current Visit: Yes Status: Chronic (12) Metabolic encephalopathy Current Visit: Yes Status: Resolved - Time Spent with Patient Total time spent is greater than 50% in coordination of care (as documented) at patient's floor/unit and/or counseling patient: Internal Medicine: Result - Labs CBC & Chem 7: 03/26/19 07:10 03/26/19 00:20 Labs: Short CBC 03/25/19 03/25/19 03/26/19 Range/Units 16:52 20:08 00:20 WBC 5.1 (4.3-11.1) K/mcL Hgb 8.8 L 8.7 L 8.7 L (12.9-16.9) g/dL Hct 26.5 L 26.2 L 25.8 L (37.5-50.1) % Plt Count 106 L (140-400) K/mcL Neutrophils # 3.9 (1.6-8.9) K/mcL 03/26/19 Range/Units 07:10 WBC (4.3-11.1) K/mcL Hgb 9.0 L (12.9-16.9) g/dL Hct 27.4 L (37.5-50.1) % Plt Count (140-400) K/mcL Neutrophils # (1.6-8.9) K/mcL BMP 03/26/19 00:20 Sodium 143 Potassium 4.0 Chloride 112 H Carbon Dioxide 27 BUN 54 H Creatinine 1.09 Glucose 216 H Calcium 8.1 L - ABG Interpretation ABG results: ABG ABG pH 7.34 pH Units (7.32-7.45) 03/23/19 02:08 ABG pCO2 36 mmHg (35-45) 03/23/19 02:08 ABG pO2 89 mmHg (85-104) 03/23/19 02:08 ABG O2 Saturation 96 % (95-98) 03/23/19 02:08 PT/INR, D-dimer PT 13.9 Seconds (9.4-12.1) H 03/18/19 04:58 - Attending Attestation I examined this patient and my medical decision-making was reviewed with the Resident Physician Dr Castillo. I agree with the documented findings, disposition and treatment plan as described except to the extent set forth below. Mr Canales is admitted with PVD requiring surgical intervention and has developed post op blood loss anemia and acute renal failure,encephalopathy and UTI no family present. awake, not cooperative today. denies pain. denies abd pain. when asked if I may examine him he states no. discussed with RN and he has been uncoopartive but calm all morning. spit his meds out at her today. she is calling [facility] to confirm baseline mental status as he is completely alert today, just not cooperative gen- awake, alert appears stated age eyes- pupils equal round , no conjunctival pallor cv- reg rate and rhythm on tele lungs- no audible wheezing, normal resp effort on room air abd- no apparent distension neuro- alert and non cooperative with answering questions, CN grossly intact and no focal deficits can be appreciated skin- + pallor,RUE large ecchymotic area within marked margins PVD s/p right fem-pop bypass 03/21 -Dr Rollins followed, RLE US no dvt, vasc surg follow up within 2 weeks of dc an d podiatry/wound clinic follow up for foot wounds Post Operative blood loss anemia, stable Suspect related to anticoagulation, now held Ecchymotic areas bl groin and RUE, no other identifiable signs of bleeding Hemodynamically stable -no AC -stable after 2 units prbc -stool occult pending Acute Kidney injury,resolved UTI- CRE on [facility] cx just prior to admit -nephro following, hold IVFs, holding nephrotoxins -cont cipro, ID following Encephalopathy likely combination metabolic with renal failure and infectious with UTI, improving daily -cont tx as above -confirming with [facility] baseline mental status/affect CT a/p with gallbladder inflammation and sludge/stones and duodenitis -ID following, rUQ US pending and further treatment/intervention pending result -cont cipro Low depakote level- on extensive review of chart he has no seizure hx but does have mood d/o hx on mulitple mood stabilizing agents,have not been able to confirm with pt or family -discussed with pharmacist, if for mood d/o no dose change required, if for seizures, it would need adjusted, bt given mental status and poor renal function the risk of adjustment would outweigh the benefit - prn ativan for seizure and seizure precautions empirically HTN- norvasc, coreg, adjust as needed, outpt fu further diagnoses and plan as documented by resident <Delroy Castillo - Last Filed: 03/26/19 12:06> (2) Diabetes Qualifiers: Diabetes mellitus type: type 2 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 Diabetes mellitus complication status: with circulatory complication Diabetes mellitus complication detail: with peripheral angiopathy with gangrene Qualified Code(s): E11.52 - Type 2 diabetes mellitus with diabetic peripheral angiopathy with gangrene; Z79.4 - [facility] (current) use of insulin (3) Congestive heart failure Qualifiers: Heart failure type: unspecified Heart failure chronicity: chronic Qualified Code(s): I50.9 - Heart failure, unspecified (4) Hypertension Qualifiers: Hypertension type: essential hypertension Qualified Code(s): I10 - Essential (primary) hypertension (6) UTI (urinary tract infection) Qualifiers: Urinary tract infection type: site unspecified Hematuria presence: with hematuria Qualified Code(s): N39.0 - Urinary tract infection, site not specified; R31.9 - Hematuria, unspecified (8) Anemia Qualifiers: Anemia type: unspecified type Qualified Code(s): D64.9 - Anemia, unspecified (9) Cirrhosis Qualifiers: Hepatic cirrhosis type: alcoholic cirrhosis Ascites presence: without ascites Qualified Code(s): K70.30 - Alcoholic cirrhosis of liver without ascites (11) Abdominal pain Qualifiers: Abdominal location: right upper quadrant Qualified Code(s): R10.11 - Right up per quadrant pain <Dina Guadarrama - Last Filed: 03/26/19 12:15> (2) Diabetes Qualifiers: Diabetes mellitus type: type 2 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 Diabetes mellitus complication status: with circulatory complication Diabetes mellitus complication detail: with peripheral angiopathy with gangrene Qualified Code(s): E11.52 - Type 2 diabetes mellitus with diabetic peripheral angiopathy with gangrene; Z79.4 - [facility] (current) use of insulin (3) Congestive heart failure Qualifiers: Heart failure type: unspecified Heart failure chronicity: chronic Qualified Code(s): I50.9 - Heart failure, unspecified (5) Hypertension Qualifiers: Hypertension type: essential hypertension Qualified Code(s): I10 - Essential (primary) hypertension (7) UTI (urinary tract infection) Qualifiers: Urinary tract infection type: site unspecified Hematuria presence: with hematuria Qualified Code(s): N39.0 - Urinary tract infection, site not specified; R31.9 - Hematuria, unspecified (9) Anemia Qualifiers: Anemia type: unspecified type Qualified Code(s): D64.9 - Anemia, unspecified (10) Abdominal pain Qualifiers: Abdominal location: right upper quadrant Qualified Code(s): R10.11 - Right upper quadrant pain (11) Cirrhosis Qualifiers: Hepatic cirrhosis type: alcoholic cirrhosis Ascites presence: without ascites Qualified Code(s): K70.30 - Alcoholic cirrhosis of liver without ascites
[2019-03-26 07:49] LABS: Hematocrit 27.4 % (37.5-50.1)
[2019-03-26] MEDS: Thiamine (B-1) 100 MG TABLET PO SCH (09:11)
[2019-03-26] MEDS: Folic Acid 1 MG TABLET PO SCH (09:11)
[2019-03-26] MEDS: Cholecalciferol (D-3) 1,000 UNIT TABLET PO SCH (09:11)
[2019-03-26] MEDS: amLODIPine 5 MG TABLET PO SCH (09:11)
[2019-03-26] MEDS: BuPROPion SR (12 HR) 150 MG TABLET PO SCH (09:11)
[2019-03-26] MEDS: Aspirin Enteric Coated 81 MG Tablet PO SCH (09:11)
--- NOTE | 2019-03-26 10:45 | Vascular/Endovas Progress Note ---
Date of Encounter: 03/26/19 Time of Encounter: 10:42 Discussion with patient/family: Assessment: Satisfactory progress status post right femoral-popliteal bypass graft Plan: Continue with dry dressings on the wounds and dressings as ordered in regards to the foot wounds. Appears satisfactory for discharge from a vascular perspective. - Subjective Interval history: This 74-year-old male is seen status post right femoral-popliteal bypass graft. The patient is giving no new active complaints at this time. Exam: 74-year-old male in mild distress secondary to pain in his right leg at the incision sites. He is also concerned about the ecchymosis associated with his right forearm. He is awake, alert, coherent, and cooperative. The incision in the right groin is clean, dry, intact, and well approximated. There is small amount of eschar associated with the cephalad portion of the wound. There is no erythema or induration. There is no separation and no evidence action. Popliteal incision is also clean, dry, intact, and well approximated. No evidence of infection is noted. The foot is warm to the touch and less then 1+ edema is noted. The right forearm shows purplish ecchymosis noted. There is a stephanie indicating the extent of the ecchymosis, and it appears that it is slightly smaller than that. It certainly is no larger. There is no tautness or tenseness to this. Radial pulses easily palpable. Results 03/26/19 07:10 03/26/19 00:20 Lab Results, Last 24 hours 03/25/19 03/25/19 03/26/19 16:52 20:08 00:20 WBC 5.1 Hgb 8.8 L 8.7 L 8.7 L Hct 26.5 L 26.2 L 25.8 L Plt Count 106 L Sodium Potassium Chloride Carbon Dioxide BUN Creatinine Glucose Calcium 03/26/19 03/26/19 00:20 07:10 WBC Hgb 9.0 L Hct 27.4 L Plt Count Sodium 143 Potassium 4.0 Chloride 112 H Carbon Dioxide 27 BUN 54 H Creatinine 1.09 Glucose 216 H Calcium 8.1 L Consult Discharge Plan - Plan Additional Instructions: Keep surgical sites dry for total of 5 days following surgery. No lifting greater than 10 pounds. No manual labor. Patient may walk inside or outside. Patient may use stairs as tolerated. Resume usual home medications from a vascular surgery perspective. Follow-up in vascular surgery clinic in 2 weeks after discharge. Referrals: [facility] [Primary Care Provider] - Manuel Mott MD [Partnered Physician] - (Follow-up with Dr. Mott in vascular surgery clinic in 2 weeks after discharge.)
[2019-03-26 17:22] LABS: Valproate Free <7 ug/mL (7-23)
[2019-03-26] MEDS ORDERED: Valproic Acid INJ 500 MG in 0.9 % Sodium Chloride 100 ML IVPB ONE (22:45)
[2019-03-26] MEDS: Divalproex (24 HR) 500 MG TABLET PO SCH (22:55)
[2019-03-27] MEDS: Insulin LISPRO 300 UNITS/3 ML VIAL SQ SCH ×7 (00:21→20:41)
[2019-03-27] MEDS: *HR* Metoprolol 5 MG/5 ML VIAL IVP PRN (04:30)
[2019-03-27] MEDS ORDERED: *HR* Labetalol 20 MG/4 ML SYRINGE IVP ONE (05:58)
[2019-03-27 06:29] LABS: Basophils % 0.5 %; Eosinophils % 0.7 %; Hematocrit 31.4 % (37.5-50.1); Hemoglobin 10.3 g/dL (12.9-16.9); Lymphocytes # 0.7 K/mcL (0.6-4.6); Lymphocytes % 12.2 %; Mean Corpuscular HGB Conc 32.8 g/dL (31.6-35.5); Mean Corpuscular Hemoglobin 32.9 pg (28.0-33.3); Mean Corpuscular Volume 100.3 fL (83.0-100.0); Mean Platelet Volume 8.8 fL (9.4-12.4); Monocytes # 0.5 K/mcL (0.0-1.3); Monocytes % 7.8 %; Neutrophils # 4.5 K/mcL (1.6-8.9); Platelet Count 113 K/mcL (140-400); Red Blood Count 3.13 M/mcL (4.19-5.50); Red Cell Distribution Width 17.7 % (11.5-14.5); Segmented Neutrophils % 76.8 %
[2019-03-27 06:51] LABS: BUN/Creatinine Ratio 45 (6-26); Blood Urea Nitrogen 45 mg/dL (8-23); Calcium 9.1 mg/dL (8.6-10.3); Carbon Dioxide 30 mEq/L (23-29); Chloride 109 mEq/L (98-107); Glucose 253 mg/dL (70-105); Osmolality,Calculated 324 (280-300); Potassium 3.7 mEq/L (3.5-5.1); Sodium 147 mEq/L (136-145); eGFR For Non-African Americans > 60 (> 60)
[2019-03-27 08:59] LABS: Valproate Total <7 ug/mL (50-125)
[2019-03-27] MEDS: Thiamine (B-1) 100 MG TABLET PO SCH (08:59)
[2019-03-27] MEDS: BuPROPion SR (12 HR) 150 MG TABLET PO SCH (08:59)
[2019-03-27] MEDS: Folic Acid 1 MG TABLET PO SCH (08:59)
[2019-03-27] MEDS: Cholecalciferol (D-3) 1,000 UNIT TABLET PO SCH (08:59)
[2019-03-27] MEDS: Aspirin Enteric Coated 81 MG Tablet PO SCH (08:59)
[2019-03-27] MEDS: amLODIPine 5 MG TABLET PO SCH (08:59)
--- NOTE | 2019-03-27 14:39 | Internal Med Progress Note ---
<BushrawaltDelroy sweet - Last Filed: 03/27/19 14:37> Hospitalist Progress Note - Encounter Date of Encounter: 03/27/19 Time of Encounter: 08:12 - Subjective Interval History: Patient seen and examined this morning. Continues to choose to be nonvocal but does give hand motions. He is able to communicate that he is overall doing o radha. Admits to pain in his abdomen but otherwise has no concerns that he communicates. - Exam Vitals: Temp Pulse Resp BP Pulse Ox 98.6 F 82 20 151/75 96 03/27/19 11:31 03/27/19 11:31 03/27/19 11:31 03/27/19 11:31 03/27/19 11:31 Exam: Gen.: Vitals noted. No acute distress., resting comfortably in bed. Makes eye contact and nods appropriately HEENT: EOMI, oropharynx clear, Normocephalic, atraumatic, MMM Cardiac: RRR, no murmur, +S1/S2, No BLE edema Pulmonary: CTA bilaterally, no wheezes, rales or rhonchi, equal chest expansion, unlabored breathing Abdomen: soft, winces with palpation of epigastric region, BS noted, no guarding, no palpable HSM Skin: warm and dry. Improved ecchymosis on left groin. Right arm ecchymosis is stable. MSK: no joint swelling noted, gait no assessed while in bed. Neuro: Unable to fully assess due to cooperation. mental status grossly improved. moves all extremities, no focal deficits Psych: Appropriate mood and behavior, mildly agitated. - Assessment and Plan (1) Peripheral vascular disease Current Visit: Yes Status: Chronic Assessment and Plan: - [facility] for concerns of absent pulses in the LLE - Patient is a known history of peripheral vascular disease - On presentation, patients pulse was palpable the left lower extremity - Patient is postop day 6 of right lower extremity revascularization - Complication of HUNTER as elsewhere documented - Vasc surgery following and states that he is healing well and is ready for discharge from their standpoint - Distal pulses strong bilaterally Plan - Given concern for bleeding as below, we will continue to hold home eliquis at this time - Will require follow-up with vascular surgery in the outpatient setting 2 weeks after discharge (2) Diabetes Current Visit: Yes Status: Chronic Assessment and Plan: Sliding scale insulin. Blood glucose checks ACHS. Blood sugars running in the 200s Sliding scale insulin Consider increasing insulin regimen as he eats more (3) Congestive heart failure Current Visit: Yes Status: Chronic Assessment and Plan: History of congestive heart failure. Monitor I's and O's. Daily weights. Not in acute exacerbation. Echocardiogram during this admission showed ejection fraction of 65% with mild diastolic dysfunction Resume medical management with home medications. (4) Hypertension Current Visit: Yes Status: Acute Assessment and Plan: Norvasc, lisinopril, Coreg at home lisinopril being held for HUNTER Mildly high today, will increase dose of Norvasc (5) Alcohol use Current Visit: Yes Status: Acute Assessment and Plan: - Patient reportedly admit to heavy alcohol use - No signs/symptoms of withdrawal during this admission - CIWA protocol which has been discontinued - Suspect baseline mental status - Continue daily vitamins (6) UTI (urinary tract infection) Current Visit: Yes Status: Acute Assessment and Plan: - UTI with culture growing Enterobacter cloacae. - Culture obtained at [facility] was reportedly positive for CRE - ID following, appreciate recommendations - Patient is not admitting to dysuria, hematuria at this time. However this may be related to his altered mental status - Currently being treated with IV Cipro which urine culture was sensitive to - Patient does have Sandhu catheter - CT of the abdomen obtained on 03/24 shows no evidence of pyelonephritis or hydronephrosis but does show duodenitis Plan - Continue to follow ID recommendations - As patient's mental status is improving on IV Cipro, will continue this - Day 6 of therapy, likely 7-10 day course (7) Acute kidney injury Current Visit: Yes Status: Acute Assessment and Plan: - Resolved - BUN/Cr of 45/1.01 this morning. - Has been as high as 3.77 during admission following surgery - Nephro following. Agree that this is likely secondary to contrast induced ATN with possible pre-renal etiology - Improved with supportive care and fluids - Nephrotoxins being held- lisinopril, lasix - FENA of 0.3%, pre-renal Plan - Given vast improvement, will stop fluids and monitor - Appreciate Nephro input (8) Anemia Current Visit: Yes Status: Acute Assessment and Plan: - H/H improved this morning at 10.3/31.4 which is improved from 7.3 this admission - Etiology is likely post operative loss - Baseline appears to be 11-12 at admission - S/p 2 units PRBC on 03/24 and 03/25 - Is on home eliquis which was started after surgery, now being held Plan - Ecchymosis improving, Hgb stable - Will continue to monitor - Will not start home AC today, consider on discharge. - SCDs (9) Abdominal pain Current Visit: Yes Status: Acute Assessment and Plan: Suspect secondary to duodenitis as noted on CT scan ID following, patient is on Cipro Continue supportive care CT scan did show possible biliary sludge Right upper quadrant all shown gallbladder wall thickening without signs of acute cholecystitis, may suggest chronic cholecystitis Should follow as outpatient Supportive care for duodenitis (10) Cirrhosis Current Visit: Yes Status: Chronic Assessment and Plan: - As noted on CT scan - Ammonia within normal limits - Patient has known alcohol history Plan - Continue monitor - Patient out of window for alcohol withdrawal. CIWA stopped - Follow up as outpatient (11) Metabolic encephalopathy Current Visit: Yes Status: Resolved Assessment and Plan: - Suspected that patient is currently at his baseline - Etiology may be multifactorial including acute renal failure, UTI, alcohol abuse/withdrawal, anemia - Patient is alert and oriented today however he is uncooperative with exam - Patient is being treated and renal failure has resolved, UTI improving - Vitals and labs are stable Plan - We will treat underlying etiology is also documented - Continue to monitor (12) DVT prophylaxis Current Visit: Yes Status: Acute Assessment and Plan: Eliquis held for concerns for anemia SCD only on right. (13) Hypernatremia Current Visit: Yes Status: Acute Assessment and Plan: Noted at 147 this morning Increased from 143 Patient mildly dry exam, we will encourage oral intake and monitor - Time Spent with Patient Total time spent is greater than 50% in coordination of care (as documented) at patient's floor/unit and/or counseling patient: Internal Medicine: Result - Labs CBC & Chem 7: 03/27/19 06:17 03/27/19 06:17 Labs: Short CBC 03/27/19 Range/Units 06:17 WBC 5.9 (4.3-11.1) K/mcL Hgb 10.3 L (12.9-16.9) g/dL Hct 31.4 L (37.5-50.1) % Plt Count 113 L (140-400) K/mcL Neutrophils # 4.5 (1.6-8.9) K/mcL BMP 03/27/19 06:17 Sodium 147 H Potassium 3.7 Chloride 109 H Carbon Dioxide 30 H BUN 45 H Creatinine 1.01 Glucose 253 H Calcium 9.1 - ABG Interpretation ABG results: ABG ABG pH 7.34 pH Units (7.32-7.45) 03/23/19 02:08 ABG pCO2 36 mmHg (35-45) 03/23/19 02:08 ABG pO2 89 mmHg (85-104) 03/23/19 02:08 ABG O2 Saturation 96 % (95-98) 03/23/19 02:08 PT/INR, D-dimer PT 13.9 Seconds (9.4-12.1) H 03/18/19 04:58 Consult Discharge Plan - Plan Additional Instructions: Keep surgical sites dry for total of 5 days following surgery. No lifting greater than 10 pounds. No manual labor. Patient may walk inside or outside. Patient may use stairs as tolerated. Resume usual home medications from a vascular surgery perspective. Follow-up in vascular surgery clinic in 2 weeks after discharge. Referrals: [facility] [Primary Care Provider] - Manuel Mott MD [Partnered Physician] - (Follow-up with Dr. Mott in vascular surgery clinic in 2 weeks after discharge.) <Dina Guadarrama - Last Filed: 03/27/19 15:25> Hospitalist Progress Note - Encounter Date of Encounter: 03/27/19 - Exam Vitals: Temp Pulse Resp BP Pulse Ox 98.6 F 82 20 151/75 96 03/27/19 11:31 03/27/19 11:31 03/27/19 11:31 03/27/19 11:31 03/27/19 11:31 - Assessment and Plan (1) Peripheral vascular disease Current Visit: Yes Status: Chronic (2) Diabetes Current Visit: Yes Status: Chronic (3) Congestive heart failure Current Visit: Yes Status: Chronic (4) DVT prophylaxis Current Visit: Yes Status: Acute (5) Hypertension Current Visit: Yes Status: Acute (6) Alcohol use Current Visit: Yes Status: Acute (7) UTI (urinary tract infection) Current Visit: Yes Status: Acute (8) Acute kidney injury Current Visit: Yes Status: Acute (9) Anemia Current Visit: Yes Status: Acute (10) Abdominal pain Current Visit: Yes Status: Acute (11) Cirrhosis Current Visit: Yes Status: Chronic (12) Metabolic encephalopathy Current Visit: Yes Status: Resolved (13) Hypernatremia Current Visit: Yes Status: Acute - Time Spent with Patient Total time spent is greater than 50% in coordination of care (as documented) at patient's floor/unit and/or counseling patient: Internal Medicine: Result - Labs CBC & Chem 7: 03/27/19 06:17 03/27/19 06:17 Labs: Short CBC 03/27/19 Range/Units 06:17 WBC 5.9 (4.3-11.1) K/mcL Hgb 10.3 L (12.9-16.9) g/dL Hct 31.4 L (37.5-50.1) % Plt Count 113 L (140-400) K/mcL Neutrophils # 4.5 (1.6-8.9) K/mcL BMP 03/27/19 06:17 Sodium 147 H Potassium 3.7 Chloride 109 H Carbon Dioxide 30 H BUN 45 H Creatinine 1.01 Glucose 253 H Calcium 9.1 - ABG Interpretation ABG results: ABG ABG pH 7.34 pH Units (7.32-7.45) 03/23/19 02:08 ABG pCO2 36 mmHg (35-45) 03/23/19 02:08 ABG pO2 89 mmHg (85-104) 03/23/19 02:08 ABG O2 Saturation 96 % (95-98) 03/23/19 02:08 PT/INR, D-dimer PT 13.9 Seconds (9.4-12.1) H 03/18/19 04:58 - Attending Attestation I examined this patient and my medical decision-making was reviewed with the Resident Physician Dr Castillo. I agree with the documented findings, disposition and treatment plan as described except to the extent set forth below. Mr Canales is admitted with PVD requiring surgical intervention and has developed post op blood loss anemia and acute renal failure,encephalopathy and UTI no family present. awake, won't speak but nods and points and is more cooperative. took all meds. eating breakfast in bed. denies pain. permits exam. gen- awake, alert appears stated age cv- reg rate and rhythm on tele, no le edema lungs- ctabl no wheezing or rhonchi normal resp effort on room air abd-soft, non tender, non distended, + bs neuro- alert , doesn't speak but nods/shakes head to answer all questions, CN grossly intact and no focal deficits can be appreciated skin- RUE large ecchymotic area within marked margins, left groin ecchymosis within marked region as well PVD s/p right fem-pop bypass 03/21 -Dr Rollins followed, RLE US no dvt, vasc surg follow up within 2 weeks of dc and podiatry/wound clinic follow up for foot wounds Post Operative blood loss anemia, stable Suspect related to anticoagulation, now held Ecchymotic areas bl groin and RUE, no other identifiable signs of bleeding Hemodynamically stable -no AC -stable after 2 units prbc -stool occult pending and has not been sent Acute Kidney injury,resolved UTI- CRE on [facility] just prior to admit -nephro following, hold IVFs, holding nephrotoxins -cont cipro, ID following Encephalopathy likely combination metabolic with renal failure and infectious with UTI, improving daily -cont tx as above CT a/p with gallbladder inflammation and sludge/stones and duodenitis -ID following, RUQ USwithout cholecystisi or stones, + sludge - would have him evaluated outpt for further intervention, none urgent required -cont cipro Low depakote level- on extensive review of chart he has no seizure hx but does have mood d/o hx on mulitple mood stabilizing agents,have not been able to co nfirm with pt or family -discussed with pharmacist, if for mood d/o no dose change required, if for seizures, it would need adjusted, bt given mental status and poor renal function the risk of adjustment would outweigh the benefit - prn ativan for seizure and seizure precautions empirically HTN- norvasc, coreg, adjust as needed, outpt fu further diagnoses and plan as documented by resident <Delroy Castillo - Last Filed: 03/27/19 14:37> (2) Diabetes Qualifiers: Diabetes mellitus type: type 2 Diabetes mellitus manager intermediate insulin use: with chcf use Diabetes mellitus complication status: with circulatory complication Diabetes mellitus complication detail: with peripheral angiopathy with gangrene Qualified Code(s): E11.52 - Type 2 diabetes mellitus with diabetic peripheral angiopathy with gangrene; Z79.4 - MCFP (current) use of insulin (3) Congestive heart failure Qualifiers: Heart failure type: unspecified Heart failure chronicity: chronic Qualified Code(s): I50.9 - Heart failure, unspecified (4) Hypertension Qualifiers: Hypertension type: essential hypertension Qualified Code(s): I10 - Essential (primary) hypertension (6) UTI (urinary tract infection) Qualifiers: Urinary tract infection type: site unspecified Hematuria presence: with hematuria Qualified Code(s): N39.0 - Urinary tract infection, site not specified; R31.9 - Hematuria, unspecified (8) Anemia Qualifiers: Anemia type: unspecified type Qualified Code(s): D64.9 - Anemia, unspecified (9) Abdominal pain Qualifiers: Abdominal location: right upper quadrant Qualified Code(s): R10.11 - Right upper quadrant pain (10) Cirrhosis Qualifiers: Hepatic cirrhosis type: alcoholic cirrhosis Ascites presence: without ascites Qualified Code(s): K70.30 - Alcoholic cirrhosis of liver without ascites <Dina Guadarrama - Last Filed: 03/27/19 15:25> (2) Diabetes Qualifiers: Diabetes mellitus type: type 2 Diabetes mellitus manager intermediate insulin use: with chcf use Diabetes mellitus complication status: with circulatory complication Diabetes mellitus complication detail: with peripheral angiopathy with gangrene Qualified Code(s): E11.52 - Type 2 diabetes mellitus with diabetic peripheral angiopathy with gangrene; Z79.4 - MCFP (current) use of insulin (3) Congestive heart failure Qualifiers: Heart failure type: unspecified Heart failure chronicity: chronic Qualified Code(s): I50.9 - Heart failure, unspecified (5) Hypertension Qualifiers: Hypertension type: essential hypertension Qualified Code(s): I10 - Essential (primary) hypertension (7) UTI (urinary tract infection) Qualifiers: Urinary tract infection type: site unspecified Hematuria presence: with hematuria Qualified Code(s): N39.0 - Urinary tract infection, site not specified; R31.9 - Hematuria, unspecified (9) Anemia Qualifiers: Anemia type: unspecified type Qualified Code(s): D64.9 - Anemia, unspecified (10) Abdominal pain Qualifiers: Abdominal location: right upper quadrant Qualified Code(s): R10.11 - Right upper quadrant pain (11) Cirrhosis Qualifiers: Hepatic cirrhosis type: alcoholic cirrhosis Ascites presence: without ascites Qualified Code(s): K70.30 - Alcoholic cirrhosis of liver without ascites
[2019-03-27] MEDS: Divalproex (24 HR) 500 MG TABLET PO SCH (20:11)
[2019-03-28] MEDS: *HR* Metoprolol 5 MG/5 ML VIAL IVP PRN (05:53)
[2019-03-28 07:50] LABS: Basophils # 0.1 K/mcL (0.0-0.2); Basophils % 0.8 %; Eosinophils # 0.1 K/mcL (0.0-0.6); Eosinophils % 1.1 %; Hematocrit 33.1 % (37.5-50.1); Hemoglobin 10.6 g/dL (12.9-16.9); Immature Granulocytes % 2.1 % (0-4); Lymphocytes # 0.9 K/mcL (0.6-4.6); Lymphocytes % 13.1 %; Mean Corpuscular Hemoglobin 32.5 pg (28.0-33.3); Mean Corpuscular Volume 101.5 fL (83.0-100.0); Mean Platelet Volume 9.1 fL (9.4-12.4); Monocytes # 0.6 K/mcL (0.0-1.3); Monocytes % 8.7 %; Neutrophils # 4.9 K/mcL (1.6-8.9); Platelet Count 109 K/mcL (140-400); Red Blood Count 3.26 M/mcL (4.19-5.50); Red Cell Distribution Width 17.3 % (11.5-14.5); Segmented Neutrophils % 74.2 %
[2019-03-28 08:01] LABS: BUN/Creatinine Ratio 47 (6-26); Blood Urea Nitrogen 45 mg/dL (8-23); Calcium 8.7 mg/dL (8.6-10.3); Carbon Dioxide 26 mEq/L (23-29); Chloride 110 mEq/L (98-107); Glucose 289 mg/dL (70-105); Osmolality,Calculated 326 (280-300); Potassium 3.7 mEq/L (3.5-5.1); Sodium 147 mEq/L (136-145); eGFR For Non-African Americans > 60 (> 60)
[2019-03-28] MEDS: Aspirin Enteric Coated 81 MG Tablet PO SCH (08:48)
[2019-03-28] MEDS: Cholecalciferol (D-3) 1,000 UNIT TABLET PO SCH ×2 (08:48→09:07)
[2019-03-28] MEDS: Thiamine (B-1) 100 MG TABLET PO SCH ×2 (08:48→09:07)
[2019-03-28] MEDS: BuPROPion SR (12 HR) 150 MG TABLET PO SCH ×2 (08:49→09:07)
[2019-03-28] MEDS: amLODIPine 5 MG TABLET PO SCH ×3 (08:49→10:43)
--- NOTE | 2019-03-28 08:51 | Discharge Summary ---
<Grabiel Quinonez - Last Filed: 03/28/19 16:15> Orders not resulted at time of discharge: Pending orders 03/23/19 01:29 Type and Screen [BBK] Stat 03/24/19 10:40 Red Blood Cells [BBK] Stat 03/25/19 12:52 Occult Blood,Stool [BF] Stat Date of Encounter: 03/28/19 Time of Encounter: 08:51 - Discharge Diagnosis (1) Peripheral vascular disease Priority: Primary Status: Chronic (2) UTI (urinary tract infection) Priority: Primary Status: Acute Qualifiers: Urinary tract infection type: site unspecified Hematuria presence: with hematuria Qualified Code(s): N39.0 - Urinary tract infection, site not specified; R31.9 - Hematuria, unspecified (3) Acute kidney injury Priority: Primary Status: Acute (4) Postoperative anemia Priority: Secondary Status: Acute (5) Abnormal CT of the abdomen Priority: Secondary Status: Acute (6) Diabetes Priority: Secondary Status: Chronic Qualifiers: Diabetes mellitus type: type 2 Diabetes mellitus longwall foreman insulin use: with mcc use Diabetes mellitus complication status: with circulatory complication Diabetes mellitus complication detail: with peripheral angiopathy with gangrene Qualified Code(s): E11.52 - Type 2 diabetes mellitus with diabetic peripheral angiopathy with gangrene; Z79.4 - long term care social worker (current) use of insulin (7) Hypertension Priority: Secondary Status: Acute Qualifiers: Hypertension type: essential hypertension Qualified Code(s): I10 - Essential (primary) hypertension (8) DVT prophylaxis Priority: Secondary Status: Acute Hospital course: Mr. Canales is a 74 year old male with a PMH of PVD, HTN, CHF, and DM who presented to [facility] due to absent pulses in the left lower extremity. Patient has a known history of diabetic neuropathy and peripheral vascular disease. [facility] due to concern of vascular insufficiency; limb was cold and pulseless. Patient was accepted by vascular surgeon Dr. Mott. On arrival to the emergency department, patients vital signs were within normal limits. Laboratory analysis demonstrated hemoglobin of 12.0, creatinine 1.31. He was found to have a palpable pulse in the left lower extremity. Vascular surgery recommended ABIs be performed. It demonstrated the followin.73 on the right, 1.46 on the left, abnormal waveforms in the right lower extremity. Aortogram was performed; demonstrated the presence of an occlusion in the distal right superficial femoral artery. Right sided SFA occlusion could not be crossed due to calcification. Patients course was held in preparation for this procedure. On his initial arrival, urinalysis demonstrated the presence of moderately elevated leukocyte esterase and TNTC white blood cells. Per event note on 03/18, patient had a foul-smelling urine with a cloudy appearance. A urine culture was ordered. He was initially started on empiric Rocephin. The urine culture eventually grew Enterobacter cloacae MDRO, resistant to cephalosporins, Augmentin, ertapenem, Macrobid, and Zosyn. He was started on ciprofloxacin IV. Due to this [id number]-[id number] organism, infectious disease was consulted. They recommended a 2 week course of ciprofloxacin. Patient underwent femoral popliteal bypass on 03/21. He tolerated his procedure well. No immediate postoperative complications were noted. After patients surgical procedure, he developed an HUNTER, with a creatinine reaching a high of 3.77. Etiology was likely contrast induced, combined with poor oral intake. Nephrology was consulted. Patient was given IV fluid hydration with normal saline at 100 mL per hour. During his acute kidney injury, his urine output significantly decreased. However, over the next few days, his urine output improved, and patients creatinine returned to normal limits. Also after his procedure, patients hemoglobin dropped, likely due to postoperative bleeding. His hemoglobin reached a low of 7.3. He was transfused with 2 units of packed red blood cells on 03/24 is 03/25. Goal hemoglobin was 8 because of his history of cardiovascular and peripheral vascular disease. Patients hemoglobin improved. Shortly after patients hemoglobin dropped, a large area of ecchymosis was noted in the left side of his groin. No active bleed was suspected. This ecchymosis improved over the course of a few days. Patients Eliquis was stopped due to concern of potential bleeding. Patient was seen and examined on date of discharge. He is postop day 7. He states that he is feeling well today. Surgical site appears intact; no evidence of active bleeding. His urine output has significantly improved, as has his oral intake. Strong pedal pulses bilaterally. Patient will follow-up with the outpatient setting with vascular surgery in 2 weeks after discharge. He will require a total of 14 days worth of ciprofloxacin. He denies fever, chills, dysuria, pain, weakness, numbness, tingling, or confusion. He has no complaints. He will need wound care for his right foot wounds. His anti coagulation will be restarted at the discretion of his primary care physician. He will be monitored in the outpatient setting for his anemia. - Time Spent with Patient Total time spent providing and/or coordinating discharge services: - Discharge Medications Prescriptions: New amLODIPine [Norvasc] 10 mg PO DAILY tablet Ciprofloxacin [Cipro] 500 mg PO BID #14 tablet Continued Sertraline [Zoloft] 150 mg PO DAILY Metformin HCl [Glucophage] 1,000 mg PO BID Melatonin [Melatin] 6 mg PO HS Meclizine HCl [Verticalm] 25 mg PO TID PRN PRN Reason: Dizziness Divalproex (24 HR) [Depakote ER (24 HR)] 500 mg PO HS Lisinopril [Zestril] 20 mg PO DAILY Insulin Glargine [Lantus] 14 unit SQ Q12H Insulin ASPART [Novolog Flexpen] 2 - 10 unit SQ TIDWM Gabapentin [Neurontin] 1,200 mg PO BID Atorvastatin [Lipitor] 40 mg PO 1700 Furosemide [Lasix] 20 mg PO DAILY Empagliflozin [Jardiance] 25 mg PO DAILY Cholecalciferol (D-3) [Vitamin D] 5,000 unit PO DAILY Collagenase Oint [Santyl] 1 appl TP DAILY Carvedilol [Coreg] 6.25 mg PO BIDWM BuPROPion SR (12 HR) [Wellbutrin SR] 150 mg PO DAILY Aspirin [Adult Aspirin] 81 mg PO DAILY Discontinued amLODIPine [Norvasc] 5 mg PO DAILY Apixaban [Eliquis] 5 mg PO BID Home Medications: Aspirin [Adult Aspirin] 81 mg PO DAILY 03/17/19 [History] Atorvastatin [Lipitor] 40 mg PO 1700 03/17/19 [History] BuPROPion SR (12 HR) [Wellbutrin SR] 150 mg PO DAILY 03/17/19 [History] Carvedilol [Coreg] 6.25 mg PO BIDWM 03/17/19 [History] Cholecalciferol (D-3) [Vitamin D] 5,000 unit PO DAILY 03/17/19 [History] Collagenase Oint [Santyl] 1 appl TP DAILY 03/17/19 [History] Divalproex (24 HR) [Depakote ER (24 HR)] 500 mg PO HS 03/17/19 [History] Empagliflozin [Jardiance] 25 mg PO DAILY 03/17/19 [History] Furosemide [Lasix] 20 mg PO DAILY 03/17/19 [History] Gabapentin [Neurontin] 1,200 mg PO BID 03/17/19 [History] Insulin ASPART [Novolog Flexpen] 2 - 10 unit SQ TIDWM 03/17/19 [History] Insulin Glargine [Lantus] 14 unit SQ Q12H 03/17/19 [History] Lisinopril [Zestril] 20 mg PO DAILY 03/17/19 [History] Meclizine HCl [Verticalm] 25 mg PO TID PRN 03/17/19 [History] Melatonin [Melatin] 6 mg PO HS 03/17/19 [History] Metformin HCl [Glucophage] 1,000 mg PO BID 03/17/19 [History] Sertraline [Zoloft] 150 mg PO DAILY 03/17/19 [History] Ciprofloxacin [Cipro] 500 mg PO BID #14 tablet 03/28/19 [Rx] amLODIPine [Norvasc] 10 mg PO DAILY tablet 03/28/19 [Rx] Allergies/Adverse Reactions: Allergy/AdvReac Type Severity Reaction Status Date / Time No Known Allergies Allergy Verified 03/17/19 18:17 Date of admission: 03/21/19 16:46 Primary care physician: [facility] Consults: 03/17/19 22:57 Consult to Vascular Surgery [CONS] Routine Consulting Provider: Vascular Surgery [facility] Reason for Consult: Right lower extremity cool with absent palpable pulses. History of peripheral vascular disease. Call Completed: Yes 03/18/19 04:32 Consult to Wound Care [CONS] Routine Reason for Consult: LE lesions of the feet Call Completed: No 03/18/19 12:28 Consult to Nurse Navigator [CONS] Routine Comment: chf Consult to Living Manager [CONS] Routine Reason for SW Consult: pt [facility] 03/21/19 18:48 Consult to Physical Therapy [CONS] Routine Comment: Evaluate, develop and implement POC Reason for Consult: s/p right fem-pop bypass graft/toe and foot lesions Does patient have active BEDREST order?: No Is patient medically & hemodynamically stable?: Yes Patient assessed for mobility or mobilized this visit?: No 03/22/19 16:15 Consult to Dialysis [CONS] ONCE 03/23/19 14:26 Consult to Infectious Diseases [CONS] Routine Consulting Provider: Infectious Disease Thu Reason for Consult: Potential CRE in the urine. Call Completed: Yes 03/23/19 14:58 Consult to Nephrology [CONS] Routine Consulting Provider: Kidney [facility]/JUDITH/[facility]A/NOMAN Reason for Consult: Worsening HUNTER with decreased urine output; possibly contrast induced Call Completed: No Anticipated date of discharge: 03/28/19 - Constitutional Vitals: Temp Pulse Resp BP Pulse Ox 97.9 F 88 20 170/69 96 03/28/19 07:32 03/28/19 07:32 03/28/19 07:32 03/28/19 07:32 03/28/19 07:32 Exam: General: conversant; mental status improved, no acute distress Head: atraumatic, normocephalic Eye: PERRL, EOMI, conjuntiva pink, sclera anicteric Neck: Supple, trachea midline; No lymphadenopathy Respiratory: CTAB. No accessory muscle use, wheezes, rales, or rhonchi Cardiovascular: RRR, +S1/+S2; no murmurs, rubs, gallops Abdomen: Soft, nontender Extremities: RLE wrapped; Black discolorations on both feet Psychiatric: Normal affect, normal mood Skin: improved ecchymosis present in groin, L>R; surgical site intact with no signs of bleeding - Patient Status Disposition: Transfer SNF Condition: Good - Discharge Instructions Follow Up With: [facility] [Primary Care Provider] - Manuel Mott MD [Partnered Physician] - (Follow-up with Dr. Mott in vascular surgery clinic in 2 weeks after discharge.) Additional Instructions: Keep surgical sites dry for total of 5 days following surgery. No lifting greater than 10 pounds. No manual labor. Patient may walk inside or outside. Patient may use stairs as tolerated. Resume usual home medications from a vascular surgery perspective. Follow-up in vascular surgery clinic in 2 weeks after discharge. requires [facility] referral to surgical consultation for RUQ US findings and referral to a wound clinic for right foot wounds continued care <Dina Guadarrama M - Last Filed: 03/28/19 17:28> - NOTES TO OUTPATIENT PROVIDER Notes to Outpatient Provider: Requires vasc surg follow up with dr Mott 2 weeks. [facility]er to [facility] to set up wound clinic treatment of right foot wounds which he should be followed for. Xarelto is stopped as he developed large ecchymotic areas bl groin and RUE and hgb drop requiring blood. Defer to PCP when to resume. Outpt anemia monitoring and work up. Will complete a total course 14d cipro for UTI. Had RUQ US with possible chronic cholecystitis, gb sludge vs polyp. Please refer for outpt surgical consultation. His VPA level was low. No known seizure hx to us, but mood disorder. Could not reach family to confirm. If he has seizure disorder this dose will need adjusted. No seizure activity here. If for mood stabilization as we suspected, defer to PCP for adjustments as needed Orders not resulted at time of discharge: Pending orders 03/25/19 12:52 Occult Blood,Stool [BF] Stat Date of Encounter: 03/28/19 - Discharge Diagnosis (1) Peripheral vascular disease Status: Chronic (2) Diabetes Status: Chronic Qualifiers: Diabetes mellitus type: type 2 Diabetes mellitus longwall foreman insulin use: with longwall foreman use Diabetes mellitus complication status: with circulatory complication Diabetes mellitus complication detail: with peripheral angiopathy with gangrene Qualified Code(s): E11.52 - Type 2 diabetes mellitus with diabetic peripheral angiopathy with gangrene; Z79.4 - long term care social worker (current) use of insulin (3) Congestive heart failure Status: Chronic Qualifiers: Heart failure type: unspecified Heart failure chronicity: chronic Qualified Code(s): I50.9 - Heart failure, unspecified (4) DVT prophylaxis Status: Acute (5) Hypertension Status: Acute Qualifiers: Hypertension type: essential hypertension Qualified Code(s): I10 - Essential (primary) hypertension (6) Alcohol use Status: Acute (7) UTI (urinary tract infection) Status: Acute Qualifiers: Urinary tract infection type: site unspecified Hematuria presence: with hematuria Qualified Code(s): N39.0 - Urinary tract infection, site not specified; R31.9 - Hematuria, unspecified (8) Acute kidney injury Status: Acute (9) Anemia Status: Acute Qualifiers: Anemia type: unspecified type Qualified Code(s): D64.9 - Anemia, unspecified (10) Abdominal pain Status: Acute Qualifiers: Abdominal location: right upper quadrant Qualified Code(s): R10.11 - Right upper quadrant pain (11) Cirrhosis Status: Chronic Qualifiers: Hepatic cirrhosis type: alcoholic cirrhosis Ascites presence: without ascites Qualified Code(s): K70.30 - Alcoholic cirrhosis of liver without ascites (12) Metabolic encephalopathy Status: Resolved (13) Hypernatremia Status: Acute Hospital course: Mr. Canales is a 74 year old male - Time Spent with Patient Total time spent providing and/or coordinating discharge services: Time spent: Greater than 30 minutes (55 min) Date of admission: 03/21/19 16:46 Primary care physician: PCP [place] Consults: 03/17/19 22:57 Consult to Vascular Surgery [CONS] Routine Consulting Provider: Vascular Surgery Thu Reason for Consult: Right lower extremity cool with absent palpable pulses. History of peripheral vascular disease. Call Completed: Yes 03/18/19 04:32 Consult to Wound Care [CONS] Routine Reason for Consult: LE lesions of the feet Call Completed: No 03/18/19 12:28 Consult to Nurse Navigator [CONS] Routine Comment: chf Consult to Living Manager [CONS] Routine Reason for SW Consult: [facility] 03/21/19 18:48 Consult to Physical Therapy [CONS] Routine Comment: Evaluate, develop and implement POC Reason for Consult: s/p right fem-pop bypass graft/toe and foot lesions Does patient have active BEDREST order?: No Is patient medically & hemodynamically stable?: Yes Patient assessed for mobility or mobilized this visit?: No 03/22/19 16:15 Consult to Dialysis [CONS] ONCE 03/23/19 14:26 Consult to Infectious Diseases [CONS] Routine Consulting Provider: Infectious Disease Thu Reason for Consult: Potential CRE in the urine. Call Completed: Yes 03/23/19 14:58 Consult to Nephrology [CONS] Routine Consulting Provider: Kidney [facility]/JUDITH/MERA/NOMAN Reason for Consult: Worsening HUNTER with decreased urine output; possibly contrast induced Call Completed: No Discharging clinician: Grabiel Quinonez - Constitutional Vitals: Temp Pulse Resp BP Pulse Ox 97.9 F 88 20 170/69 96 03/28/19 07:32 03/28/19 07:32 03/28/19 07:32 03/28/19 07:32 03/28/19 07:32 - Patient Status Overall status at discharge: patient is progressing back to baseline - Diet and Activity Activity: as per physical therapy, increase activity as tolerated Diet: advance to your usual diet, diabetic diet - Attending Attestation I examined this patient and my medical decision-making was reviewed with the Resident Physician Dr Quinonez. I agree with the documented findings, disposition and treatment plan as described except to the extent set forth below. Mr Canales was admitted with PVD requiring surgical intervention and developed post op blood loss anemia, now stabilized, but required his home Xarelto be discontinued, acute renal failure since resolved, encephalopathy resolved with treatment of infection and resolution of acute renal failure, and UTI treated with Cipro as per senisitivities on [facility] prior to admission and cx this admiss ion with the assistance of ID service. awake, alert, talking and cooperative. He denies any pain, no abd pain with eating breakfast this morning, no n/v. denies sob. no family present. RN was able to confirm late last week that baseline mental status is awake, alert, sometimes combative, renuka machado and updated me this morning. gen- awake, alert appears stated age, interactive today cv- reg rate and rhythm , no murmur appreciated, + edema right foot, otherwise trace edema, no jvd lungs- ctabl no wheezing or rhonchi normal resp effort on room air abd-soft, non tender, non distended, + bs neuro- AAO person, place, sutation, asking when he can leave the hospital. CN grossly intact moves all ext, clear speech skin- RUE large ecchymotic greatly improved, left groin ecchymosis within marked region, right groin and right leg incision sites clean and dry without drainage or erythema PVD s/p right fem-pop bypass 03/21 -Dr Rollins followed, RLE US no dvt, vasc surg follow up within 2 weeks of dc and podiatry/wound clinic follow up for foot wounds Post Operative blood loss anemia, stable Suspect related to anticoagulation, now held Ecchymotic areas bl groin and RUE, no other identifiable signs of bleeding Hemodynamically stable -no AC on dc for hx of afib which he is not in currently, defer to outpt provider -stable after 2 units prbc -stool occult pending and has not been sent, defer to outpt PCP for further anemia work up out of acutely ill setting Acute Kidney injury,resolved UTI- CRE on [facility] cx just prior to admit, cxs here obtained as well -nephro followed -cont cipro to compelte 14d total treatment, ID followed Encephalopathy likely combination metabolic with renal failure and infectious with UTI,resolved CT a/p with gallbladder inflammation and sludge/stones and duodenitis -RUQ US without acute cholecystitis or stones, + sludge vs polyp and possible chronic cholecystitis -he is asx, d/w ID-- outpt surgical referral via [facility] -cont cipro for UTI Low depakote level- on extensive review of chart he has no seizure hx but does have mood d/o hx on multiple mood stabilizing agents,have not been able to confirm with pt or family -discussed with pharmacist, if for mood d/o no dose change required, if for seizures, it would need adjusted, bt given mental status and poor renal function the risk of adjustment would outweigh the benefit - prn ativan for seizure and seizure precautions empirically with no seizure like activity here HTN- norvasc, coreg, outpt fu he is intermittently refusing meds and bp elevates at that time, when takes then bp at goal further diagnoses and plan as documented by resident time spent on dc 55 min
[2019-03-28] MEDS: Folic Acid 1 MG TABLET PO SCH (09:04)
[2019-03-28] MEDS: Insulin LISPRO 300 UNITS/3 ML VIAL SQ SCH ×5 (09:05→20:49)
--- NOTE | 2019-03-28 11:43 | Physician Discharge Referral ---
<Grabiel Quinonez - Last Filed: 03/28/19 11:45> ExtendedCare Referral Info Transfer To: [place] Institutional Level of Care: Skilled - Diagnosis (1) Acute kidney injury Priority: Primary Status: Acute (2) Abnormal CT of the abdomen Priority: Secondary Status: Acute (3) Postoperative anemia Priority: Secondary Status: Acute (4) Peripheral vascular disease Priority: Secondary Status: Chronic (5) UTI (urinary tract infection) Priority: Secondary Status: Acute (6) Diabetes Priority: Secondary Status: Chronic (7) Hypertension Priority: Secondary Status: Acute (8) DVT prophylaxis Priority: Secondary Status: Acute - Transfer Medications Home Medications: Aspirin [Adult Aspirin] 81 mg PO DAILY 03/17/19 [History] Atorvastatin [Lipitor] 40 mg PO 1700 03/17/19 [History] BuPROPion SR (12 HR) [Wellbutrin SR] 150 mg PO DAILY 03/17/19 [History] Carvedilol [Coreg] 6.25 mg PO BIDWM 03/17/19 [History] Cholecalciferol (D-3) [Vitamin D] 5,000 unit PO DAILY 03/17/19 [History] Collagenase Oint [Santyl] 1 appl TP DAILY 03/17/19 [History] Divalproex (24 HR) [Depakote ER (24 HR)] 500 mg PO HS 03/17/19 [History] Empagliflozin [Jardiance] 25 mg PO DAILY 03/17/19 [History] Furosemide [Lasix] 20 mg PO DAILY 03/17/19 [History] Gabapentin [Neurontin] 1,200 mg PO BID 03/17/19 [History] Insulin ASPART [Novolog Flexpen] 2 - 10 unit SQ TIDWM 03/17/19 [History] Insulin Glargine [Lantus] 14 unit SQ Q12H 03/17/19 [History] Lisinopril [Zestril] 20 mg PO DAILY 03/17/19 [History] Meclizine HCl [Verticalm] 25 mg PO TID PRN 03/17/19 [History] Melatonin [Melatin] 6 mg PO HS 03/17/19 [History] Metformin HCl [Glucophage] 1,000 mg PO BID 03/17/19 [History] Sertraline [Zoloft] 150 mg PO DAILY 05/09/19 [History] amLODIPine [Norvasc] 10 mg PO DAILY tablet 03/28/19 [Rx] Allergies/Adverse Reactions: Allergy/AdvReac Type Severity Reaction Status Date / Time No Known Allergies Allergy Verified 03/17/19 18:17 - Respiratory Orders Smoking Cessation: Smoking cessation has been advised. For more information, call the [employer] Line at 3-806-PNTY-NOW. - Treatments List/Other: Requires follow up with vascular surgery with Dr. Mott 2 weeks He will require wound clinic treatment of right foot wounds. Will complete a total course 14d cipro for UTI. - Diet Orders Regular (Ensure compliance with taking PO medications) CERTIFICATION: I certify that the transfer of the above named patient to an Extended Care Facility is necessary for the continuing treatment of the diagnosis listed. The above information is true and accurate reflection of patient's current condition. Confidential - Redisclosure prohibited without a patient's written consent. <Dina Guadarrama - Last Filed: 03/28/19 12:11> - Diagnosis (1) Peripheral vascular disease Status: Chronic (2) Diabetes Status: Chronic (3) Congestive heart failure Status: Chronic (4) DVT prophylaxis Status: Acute (5) Hypertension Status: Acute (6) Alcohol use Status: Acute (7) UTI (urinary tract infection) Status: Acute (8) Acute kidney injury Status: Acute (9) Anemia Status: Acute (10) Abdominal pain Status: Acute (11) Cirrhosis Status: Chronic (12) Metabolic encephalopathy Status: Resolved (13) Hypernatremia Status: Acute - Respiratory Orders None Smoking Cessation: Smoking cessation has been advised. For more information, call the [employer] Line at 0-075-BBNB-NOW. - Advance Directives Code Status: Full Code - Mobility Orders Chair - Rehabiliation Orders Rehab Potential: Fair Rehab Orders: Sternal Precautions, ROM Exercises, Evaluation for Physical Therapy, Evaluation for Occupational Therapy - Treatments Skin tear care topically daily PRN per policy - Diet Orders Regular, No Concentrated Sweets CERTIFICATION: I certify that the transfer of the above named patient to an Extended Care Facility is necessary for the continuing treatment of the diagnosis listed. The above information is true and accurate reflection of patient's current condition. Confidential - Redisclosure prohibited without a patient's written consent.
[2019-03-28] MEDS: Divalproex (24 HR) 500 MG TABLET PO SCH (20:34)
[2019-03-29 07:43] VITALS: BP 150/68
--- NOTE | 2019-03-29 08:43 | Vascular/Endovas Progress Note ---
Date of Encounter: 03/29/19 Time of Encounter: 08:41 - Assessment and plan (1) Peripheral vascular disease Current Visit: Yes Status: Chronic Patent right lower extremity revascularization. Dramatic improvement of perfusion to right lower extremity following bypass surgery. Right lower extremity bypass graft and endarterectomy is patent with marked im provement of right lower extremity perfusion. Once patient is cleared from medical and renal standpoint he may be transferred per primary service. Follow-up in vascular surgery clinic in 2 weeks after discharge. (2) Diabetes Current Visit: Yes Status: Chronic Patient has chronic diabetes with diabetic neuropathy and it appears diabetic ulcerations of the feet and toes. Patient will need further follow-up with wound care and/or podiatry for his foot lesions. 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 There is also a telephone conversation with the outside physician who stated that the patient had paroxysmal atrial fibrillation and was on apixiban for that reason. Patient may resume home apixaban from vascular surgery perspective. Qualifiers: Heart failure type: unspecified Heart failure chronicity: chronic Qualified Code(s): I50.9 - Heart failure, unspecified (4) Acute kidney injury Current Visit: Yes Status: Acute Multifactorial acute kidney injury. Patient and improving from urinary output and appears to have plateaued from biochemical renal markers. - Subjective Interval history: Patient is postoperative following right femoral popliteal bypass graft and femoral and popliteal artery endarterectomies. Renal dysfunction has resolved. Urinary output is improved. In addition the patient's mental status is significantly improved. Patient is awake and alert and feeding himself. He has no right lower extremity complaints. Vital Signs, Last 4 Hours Temp Pulse Resp BP Pulse Ox 03/29/19 07:36 98.4 F 92 18 150/68 97 03/29/19 04:56 97.8 F 92 17 149/61 97 - Physical Examination General: Present: Conversant, No Apparent Distress Vascular: Present: Surgical incisions (Right lower extremity surgical incisions are dry and clean.) Skin: Present: Wound/ulcer(s) (Right toe ulcerations are dry and stable. No sign of infection.) Results 03/28/19 04:00 03/28/19 04:00 Consult Discharge Plan - Plan Additional Instructions: Keep surgical sites dry for total of 5 days following surgery. No lifting greater than 10 pounds. No manual labor. Patient may walk inside or outside. Patient may use stairs as tolerated. Resume usual home medications from a vascular surgery perspective. Follow-up in vascular surgery clinic in 2 weeks after discharge. requires [facility] to surgical consultation for RUQ US findings and referral to a wound clinic for right foot wounds continued care Referrals: [facility] [Primary Care Provider] - Manuel Mott MD [Partnered Physician] - (Follow-up with Dr. Mott in vascular surgery clinic in 2 weeks after discharge.) Prescriptions: Ciprofloxacin [Cipro] 500 mg PO BID #14 tablet
[2019-03-29] MEDS: Cholecalciferol (D-3) 1,000 UNIT TABLET PO SCH (08:46)
[2019-03-29] MEDS: Thiamine (B-1) 100 MG TABLET PO SCH (08:46)
[2019-03-29] MEDS: BuPROPion SR (12 HR) 150 MG TABLET PO SCH (08:46)
[2019-03-29] MEDS: Folic Acid 1 MG TABLET PO SCH (08:46)
[2019-03-29] MEDS: amLODIPine 5 MG TABLET PO SCH (08:46)
[2019-03-29] MEDS: Aspirin Enteric Coated 81 MG Tablet PO SCH (08:47)
[2019-03-29] MEDS: Insulin LISPRO 300 UNITS/3 ML VIAL SQ SCH (08:47)
--- NOTE | 2019-03-29 12:19 | Event Note ---
Date of Encounter: 03/29/19 Time of Encounter: 09:30 Pt was discharged to OR 03/28. No bed available until this morning. VS and overnight notes reviewed early am to confirm he remained medically stable for dc and he did. He then left in the morning prior to face to face encounter.
== END 2019-03-29 09:15 | DRG 252 ==
LOC: EMEROOARM 18:05 → 2ANU 18:05 → SUATTDRO 20:33 → 2ANU 21:23 → 2NNU 03-21 12:41 → SUATTDRO 03-21 16:46 → 2ANU 03-22 19:36
PROVIDERS: ADMIT Internal Medicine; ATTEND Internal Medicine

== ENCOUNTER 2021-07-30 09:57 | Inpatient (IN) ==
[2021-07-30] MEDS ORDERED: 0.9 % Sodium Chloride 1,000 ML IV ONE (10:18)
[2021-07-30 10:50] LABS: Basophils % 0.1 %
[2021-07-30 10:52] LABS: Hematocrit 35.7 % (37.5-50.1); INR 1.8; Immature Granulocytes % 0.8 % (0-4); Immature Platelets 2.3 % (1.1-6.1); Lymphocytes # 0.4 K/mcL (0.6-4.6); Lymphocytes % 3.4 %; Mean Corpuscular HGB Conc 33.6 g/dL (31.6-35.5); Mean Corpuscular Volume 101.1 fL (83.0-100.0); Mean Platelet Volume 9.4 fL (9.4-12.4); Monocytes # 0.7 K/mcL (0.0-1.3); Neutrophils # 10.7 K/mcL (1.6-8.9); Prothrombin Time 19.6 Seconds (9.4-12.1); Red Blood Count 3.53 M/mcL (4.19-5.50); Segmented Neutrophils % 89.7 %; White Blood Count 11.9 K/mcL (4.3-11.1)
[2021-07-30 10:54] LABS: Activated Partial Thrombo Time 32.7 Seconds (26.0-36.0)
[2021-07-30 11:01] LABS: Platelet Count 95 K/mcL (140-400)
[2021-07-30 11:18] LABS: Albumin 2.8 g/dL (3.5-5.7); Bilirubin,Direct 0.3 mg/dL (0.0-0.2); Bilirubin,Indirect 0.4 mg/dL (0.0-1.0); Bilirubin,Total 0.7 mg/dL (0.3-1.0); Calcium 8.8 mg/dL (8.6-10.3); Globulin 2.8 g/dL (2.4-3.5); Potassium 4.4 mEq/L (3.5-5.1); Total Protein 5.6 g/dL (6.4-8.9)
[2021-07-30] MEDS ORDERED: Naloxone 0.4 MG/ML INJ IVP PRN (11:59)
[2021-07-30] MEDS ORDERED: Ondansetron 4 MG/2 ML VIAL IVP PRN (11:59)
[2021-07-30] MEDS ORDERED: 0.9 % Sodium Chloride 1,000 ML IVC SCH ×2 (12:00→14:15)
[2021-07-30] MEDS: Piperacillin/Tazobactam 3.375 GM in 0.9 % Sodium Chloride Mini Bag 100 ML IVPB SCH ×2 (13:49→14:00)
[2021-07-30] MEDS ORDERED: D5% in Water 1,000 ML IVC PRN (14:11)
[2021-07-30] MEDS ORDERED: Dextrose Gel 15 GM/37.5 ML TUBE PO PRN ×2 (14:11)
[2021-07-30] MEDS ORDERED: *HR* Dextrose 50 % in Water (Syg) 50 ML SYRINGE IVP PRN (14:11)
[2021-07-30] MEDS ORDERED: Ipratropium/Albuterol Neb 3 ML IH PRN (14:32)
[2021-07-30] MEDS: Insulin LISPRO 300 UNITS/3 ML VIAL SUBQ SCH ×2 (14:42→17:19)
[2021-07-30 15:30] LABS: Estimated Average Glucose 140 mg/dl; Hemoglobin A1C 6.5 %
[2021-07-30] MEDS: carvediloL 6.25 MG TABLET PO SCH (17:51)
[2021-07-30] MEDS: *HR* Heparin 5,000 UNIT/ML VIAL SQ SCH (17:51)
[2021-07-31 00:17] LABS: Hyaline Casts,Urine Many per lpf (None Seen); Mucus,Urine Few per lpf (None-Few); RBC,Urine 15-30 per hpf (0-3); Squamous Epithelial Cell,Urine Few per hpf (None-Few)
[2021-07-31 00:27] LABS: Bilirubin,Urine Negative (Negative); Blood,Urine Small (Negative); Clarity,Urine Slightly cloudy (Clear); Color,Urine LIGHT ORANGE (Yellow); Glucose,Urine (UA) 100 mg/dL (Normal); Ketones,Urine Negative (Negative); PH,Urine 5.5 pH Units (5.0-8.0); Protein,Urine 100 mg/dL (Neg-Trace); Specific Gravity,Urine 1.025 (1.010-1.025)
[2021-07-31 00:28] LABS: Leukocyte Esterase,Urine Negative (Negative); Nitrite,Urine Negative (Negative); Urobilinogen,Urine Normal (Normal)
[2021-07-31] MEDS: Piperacillin/Tazobactam 3.375 GM in 0.9 % Sodium Chloride Mini Bag 100 ML IVPB SCH ×3 (01:07→16:29)
[2021-07-31] MEDS: Insulin LISPRO 300 UNITS/3 ML VIAL SUBQ SCH ×4 (01:09→16:40)
[2021-07-31 02:51] LABS: Basophils % 0.1 %
[2021-07-31 02:53] LABS: Hematocrit 35.1 % (37.5-50.1); Hemoglobin 11.5 g/dL (12.9-16.9); Immature Granulocytes % 0.9 % (0-4); Immature Platelets 1.9 % (1.1-6.1); Lymphocytes # 0.5 K/mcL (0.6-4.6); Lymphocytes % 5.1 %; Mean Corpuscular HGB Conc 32.8 g/dL (31.6-35.5); Mean Corpuscular Hemoglobin 33.7 pg (28.0-33.3); Mean Corpuscular Volume 102.9 fL (83.0-100.0); Mean Platelet Volume 9.6 fL (9.4-12.4); Monocytes # 0.4 K/mcL (0.0-1.3); Monocytes % 4.6 %; Platelet Count 105 K/mcL (140-400); Red Blood Count 3.41 M/mcL (4.19-5.50); Red Cell Distribution Width 14.6 % (11.5-14.5); Segmented Neutrophils % 89.3 %; White Blood Count 9.6 K/mcL (4.3-11.1)
[2021-07-31 03:03] LABS: Neutrophils # 8.6 K/mcL (1.6-8.9)
[2021-07-31 03:07] LABS: Albumin 2.8 g/dL (3.5-5.7); Bilirubin,Total 0.7 mg/dL (0.3-1.0); Calcium 8.7 mg/dL (8.6-10.3); Globulin 2.8 g/dL (2.4-3.5); Magnesium 1.9 mg/dL (1.6-2.6); Phosphorous 4.8 mg/dL (2.7-4.5); Potassium 4.1 mEq/L (3.5-5.1); Total Protein 5.6 g/dL (6.4-8.9)
[2021-07-31] MEDS ORDERED: *HR* HYDROmorphone (PF) 1 MG/ML SYRINGE IVP ONE (05:02)
[2021-07-31] MEDS: *HR* Heparin 5,000 UNIT/ML VIAL SQ SCH ×2 (06:41→16:28)
[2021-07-31] MEDS: carvediloL 6.25 MG TABLET PO SCH ×2 (08:17→16:29)
[2021-07-31] MEDS: Furosemide 40 MG/4 ML VIAL IVP ONE ×2 (12:07→13:59)
[2021-07-31 16:54] LABS: RBC,Pleural Fluid 3000 RBC/mcL
[2021-07-31 16:55] LABS: Appearance of Pleural Fl Clear (Clear)
[2021-07-31 17:00] LABS: Total Protein,Pleural Fluid 2.3 g/dL
[2021-07-31 18:56] LABS: Basophils,Pleural Fluid 0 %
[2021-08-01] MEDS: Piperacillin/Tazobactam 3.375 GM in 0.9 % Sodium Chloride Mini Bag 100 ML IVPB SCH ×4 (00:39→23:35)
[2021-08-01] MEDS: Insulin LISPRO 300 UNITS/3 ML VIAL SUBQ SCH ×6 (00:41→20:49)
[2021-08-01 05:48] LABS: Calcium 8.6 mg/dL (8.6-10.3); Phosphorous 4.2 mg/dL (2.7-4.5); Potassium 3.5 mEq/L (3.5-5.1)
[2021-08-01] MEDS: *HR* Heparin 5,000 UNIT/ML VIAL SQ SCH ×2 (05:50→16:36)
[2021-08-01] MEDS: carvediloL 6.25 MG TABLET PO SCH ×2 (09:23→16:36)
[2021-08-01] MEDS: Furosemide 20 MG TABLET PO SCH (09:23)
[2021-08-02] MEDS: Insulin LISPRO 300 UNITS/3 ML VIAL SUBQ SCH ×6 (01:21→20:29)
[2021-08-02] MEDS: *HR* Heparin 5,000 UNIT/ML VIAL SQ SCH ×2 (05:08→17:43)
[2021-08-02] MEDS ORDERED: E-Z-HD (BARIUM SULF) SUSPENSION PO ONE (10:26)
[2021-08-02] MEDS ORDERED: E-Z-PAQUE (BARIUM SULF) SUSP 1 BOTTLE PO ONE (10:26)
[2021-08-02] MEDS: Furosemide 20 MG TABLET PO SCH (11:20)
[2021-08-02] MEDS: carvediloL 6.25 MG TABLET PO SCH ×2 (11:20→16:14)
[2021-08-02] MEDS: Piperacillin/Tazobactam 3.375 GM in 0.9 % Sodium Chloride Mini Bag 100 ML IVPB SCH ×2 (11:20→17:43)
[2021-08-02] MEDS: 0.9 % Sodium Chloride 1,000 ML IVC SCH (17:44)
[2021-08-03] MEDS: Piperacillin/Tazobactam 3.375 GM in 0.9 % Sodium Chloride Mini Bag 100 ML IVPB SCH ×3 (00:51→17:23)
[2021-08-03] MEDS: Insulin LISPRO 300 UNITS/3 ML VIAL SUBQ SCH ×6 (01:37→22:08)
[2021-08-03] MEDS: *HR* Heparin 5,000 UNIT/ML VIAL SQ SCH ×2 (05:39→17:26)
[2021-08-03] MEDS: 0.9 % Sodium Chloride 1,000 ML IVC SCH (05:49)
[2021-08-03] MEDS: Furosemide 20 MG TABLET PO SCH (10:52)
[2021-08-03] MEDS: carvediloL 6.25 MG TABLET PO SCH ×2 (10:52→17:10)
[2021-08-03] MEDS ORDERED: Isovue-370 500 ML BOTTLE IVP ONE (13:55)
[2021-08-03 16:41] LABS: Basophils % 0.4 %; Hematocrit 46.9 % (37.5-50.1); Immature Granulocytes % 1.6 % (0-4); Lymphocytes # 0.5 K/mcL (0.6-4.6); Mean Corpuscular HGB Conc 32.6 g/dL (31.6-35.5); Mean Corpuscular Volume 101.1 fL (83.0-100.0); Mean Platelet Volume 8.7 fL (9.4-12.4); Monocytes # 0.6 K/mcL (0.0-1.3); Monocytes % 5.3 %; Neutrophils # 9.4 K/mcL (1.6-8.9); Platelet Count 136 K/mcL (140-400); Red Blood Count 4.64 M/mcL (4.19-5.50); Red Cell Distribution Width 14.5 % (11.5-14.5); Segmented Neutrophils % 87.7 %; White Blood Count 10.7 K/mcL (4.3-11.1)
[2021-08-03 16:44] LABS: Hemoglobin 15.3 g/dL (12.9-16.9)
[2021-08-03 16:55] LABS: Albumin 2.7 g/dL (3.5-5.7); Albumin/Globulin Ratio 0.9 (1.1-2.2); Bilirubin,Total 0.7 mg/dL (0.3-1.0); Calcium 8.4 mg/dL (8.6-10.3); Globulin 2.9 g/dL (2.4-3.5); Potassium 3.1 mEq/L (3.5-5.1); Total Protein 5.6 g/dL (6.4-8.9)
[2021-08-03] MEDS ORDERED: Calcium Gluconate 1gm/50mL 1 GM/50 ML BAG IVPB ONE (21:54)
[2021-08-03] MEDS ORDERED: Potassium Chloride 20 MEQ, Lidocaine 1% 2 ML in 0.9 % Sodium Chloride 250 ML IVPB ONE (21:54)
[2021-08-04] MEDS ORDERED: *HR* Metoprolol 5 MG/5 ML VIAL IVP ONE (01:25)
[2021-08-04] MEDS: *HR* Heparin 5,000 UNIT/ML VIAL SQ SCH (07:05)
[2021-08-04] MEDS: Piperacillin/Tazobactam 3.375 GM in 0.9 % Sodium Chloride Mini Bag 100 ML IVPB SCH ×2 (07:10→09:07)
[2021-08-04] MEDS: Insulin LISPRO 300 UNITS/3 ML VIAL SUBQ SCH ×4 (07:10→13:08)
[2021-08-04] MEDS ORDERED: Potassium Chloride 40 MEQ, Lidocaine 1% 2 ML in 0.9 % Sodium Chloride 500 ML IVPB ONE (07:44)
[2021-08-04] MEDS ORDERED: D5% in Water 1,000 ML IVC SCH (07:45)
[2021-08-04] MEDS ORDERED: Insulin DETEMIR 100 UNIT/ML X5UNITS SUBQ SCH (09:00)
[2021-08-04] MEDS: carvediloL 6.25 MG TABLET PO SCH (09:04)
[2021-08-04 14:03] VITALS: BP 129/68; PULSE 107; TEMP 97.9; O2SAT 92
[2021-08-04 14:18] LABS: Hemoglobin 15.3 g/dL (12.9-16.9); Mean Corpuscular HGB Conc 31.9 g/dL (31.6-35.5); Mean Corpuscular Hemoglobin 32.8 pg (28.0-33.3); Platelet Count 147 K/mcL (140-400); Red Blood Count 4.66 M/mcL (4.19-5.50); Red Cell Distribution Width 14.8 % (11.5-14.5); White Blood Count 11.9 K/mcL (4.3-11.1)
[2021-08-04 14:32] LABS: Calcium 8.4 mg/dL (8.6-10.3); Potassium 3.9 mEq/L (3.5-5.1)
== END 2021-08-04 16:40 | disposition expired | DRG 444 ==
LOC: 3BNU 09:57 → EMEROOARM 09:57 → SUATTDRO 11:35 → 3BNU 12:55 → SUATTDRO 07-31 10:44
PROVIDERS: ADMIT Internal Medicine; ATTEND Internal Medicine
PROC: IRDRAIN (2021-07-31 12:05)